=== PATIENT | male | born 1945 | race Caucasian/White ===

== ENCOUNTER → 2017-10-10 09:53 | Outpatient (CLI) | payer OTHER, SELFPAY ==
--- NOTE | 2017-10-10 | DI.CT.S_ITS ---
PROCEDURE: CT ANGIO ABDOMEN PELVIS INDICATIONS: STRICTURE OF ARTERY TECHNIQUE: After the administration of intravenous contrast, 2.5 mm thick sections acquired from the diaphragm to the symphysis. 10 mm maximum-intensity projection (MIP) reformats were then acquired. For radiation dose reduction, the following was used: automated exposure control. COMPARISON: [facility], CT, PE STUDY (CTA CHEST), 01/10/2016, 13:27. Outside Facility, , US LOWER EXTREMITY VASCULAR BILATERAL, 09/25/2017, 11:55. [facility], US, RENAL OR RETROPERITONEAL LIMIT, 09/28/2015, 9:06. FINDINGS: Image quality: Excellent. Aorta: The aorta is patent. Moderate areas of atherosclerotic wall calcification and mural thrombus are identified. Mesenteric arteries: Celiac trunk, superior and inferior mesenteric arteries appear patent. However, there is significant calcification of the proximal aspect of the superior mesenteric artery with short segment high grade stenosis of approximately 70%. Right pelvic arteries: There are significant wall calcifications throughout the course of the common, internal and external iliac arteries as well as the visualized common and superficial femoral arteries. There is focal area of stenosis approximately 50-60% within the right common iliac artery. There is focal area of stenosis approximately 50% on the left. Left pelvic arteries: There are significant wall calcifications throughout the course of the common, internal and external iliac arteries as well as the visualized common and superficial femoral arteries. There is focal area of stenosis approximately 50% within the left common iliac artery. Extravascular soft tissues: Linear opacities present within the lingula, unchanged. Heart size is normal. Liver is normal in size and enhancement. The pneumobilia is present. Gallbladder is unremarkable. Biliary system is non dilated. Pancreas enhances normally. Spleen is normal in size and enhancement. There is nodularity of the left adrenal gland. Kidneys are normal in size and enhancement, without hydronephrosis. Lobulated left renal cyst is noted, measuring 45 mm. Similar, punctate focus is present in the right kidney, too small to characterize. Non opacified bowel loops are normal in wall thickness and caliber. No free fluid or air. No retroperitoneal or mesenteric adenopathy. Subcentimeter periaortic and aortocaval lymph nodes are noted. No ventral hernias. No suspicious bony lesions. No vertebral body compression fractures. IMPRESSION: 1. Lingular scarring, unchanged. 2. Short segment area of prominent calcification and approximate 70% stenosis, within the proximal superior mesenteric artery. 3. Moderate atherosclerotic wall calcifications and mural thrombus throughout the abdominal aorta. 4. Significant calcifications within the visualized pelvic vasculature. There is approximate 50% stenosis within the left common iliac artery, 50-60% noted on the right. 5. Pneumobilia predominantly within the left hepatic lobe. Dictated by: Eulalia Alcantar M.D. on 10/10/2017 at 15:43 Approved by: Eulalia Alcantar M.D. on 10/10/2017 at 16:05
== END ==
PROVIDERS: Family Provider Nurse Practitioner Adult Health; PCP Family Medicine; Visit Provider Nurse Practitioner Adult Health
DX: I77.1 Stricture of artery (principal); I74.09 Other arterial embolism and thrombosis of abdominal aorta; I70.8 Atherosclerosis of other arteries
CPT/HCPCS: 74174; Q9967

== ENCOUNTER → 2017-10-20 17:05 | Outpatient (CLI) | payer OTHER, SELFPAY ==
[2017-10-20 17:59] LABS: Add Manual Diff / Slide Review NO; Eosinophils Percent Auto 4.2 % (2-4); Hematocrit 28.3 % (41-53); Hemoglobin 9.3 g/dL (13.5-17.5); Lymphocytes Percent Auto 21.9 % (25-40); Mean Corpuscular HGB Conc 32.8 % (30-36); Mean Corpuscular Hemoglobin 26.9 PG (26-34); Mean Corpuscular Volume 81.9 fL (80-100); Monocytes Percent Auto 8.3 % (3-14); Neutrophils Absolute Auto 7500 /uL (3000-5900); Neutrophils Percent Auto 64.6 % (50-75); Platelet Count 392 X10^3/uL (150-400); Red Blood Cell Count 3.45 X10^6/uL (4.5-5.9); Red Cell Distribution Width 23.3 % (11.6-14.8); White Blood Cell Count 11.6 X10^3/uL (4.5-11.0)
[2017-10-20 19:12] LABS: Anisocytosis 3+; Hypochromasia 1+; Microcytosis 1+; Schistocytes 1+
== END ==
PROVIDERS: Family Provider Nurse Practitioner Adult Health; PCP Family Medicine; Visit Provider Family Medicine
DX: D64.9 Anemia, unspecified (principal)
CPT/HCPCS: 36415; 85025

== ENCOUNTER → 2017-12-04 08:41 | Outpatient (CLI) | payer OTHER, SELFPAY ==
--- NOTE | 2017-12-04 | DI.US.S_ITS ---
PROCEDURE: US CAROTID DOPPLER BI INDICATIONS: CHRONIC DIZZINESS TECHNIQUE: Color and pulse Doppler interrogation was performed of both carotid systems, with image documentation and velocity measurements. COMPARISON: [facility], , RENAL OR RETROPERITONEAL LIMIT, 09/28/2015, 9:06. FINDINGS: Stenosis calculations are based on SRU (Society of Radi[employer] in Ultrasound) criteria. Right side: Brachial blood pressure: 155/56 mm Hg. Common carotid artery peak systolic velocity: 103 cm/sec. Internal carotid artery peak systolic velocity: 174 cm/sec. Internal carotid artery end diastolic velocity: 33 cm/sec. External carotid artery peak systolic velocity: 66 cm/sec. ICA/CCA peak systolic ratio: 1.7. Yarbrough scale imaging description: Moderate partially calcified atheromatous plaque Percent internal carotid artery stenosis: 50-69%. Vertebral artery: Flow direction is antegrade. Left side: Brachial blood pressure: 143/59 mm Hg. Common carotid artery peak systolic velocity: 142 cm/sec. Internal carotid artery peak systolic velocity: 122 cm/sec. Internal carotid artery end diastolic velocity: 17 cm/sec. External carotid artery peak systolic velocity: 111 cm/sec. ICA/CCA peak systolic ratio: 0.9. Yarbrough scale imaging description: Moderate partially calcified atheromatous plaque Percent internal carotid artery stenosis: Less than 50%. Vertebral artery: Flow direction is antegrade. IMPRESSION: 1. There is 50-69% stenosis of the right internal carotid artery. Consider confirmation a neck CTA or MRA if intervention would be pursued in the setting of a severe stenosis. 2. There is less than 50% stenosis in the left internal carotid artery. 3. Vertebral arteries are patent with antegrade flow. Dictated by: Patricio Francois M.D. on 12/04/2017 at 9:38 Approved by: Patricio Francois M.D. on 12/04/2017 at 9:40
== END ==
PROVIDERS: PCP Family Medicine; Visit Provider Nurse Practitioner Adult Health
DX: I65.23 Occlusion and stenosis of bilateral carotid arteries (principal); R42 Dizziness and giddiness
CPT/HCPCS: 93880

== ENCOUNTER 2018-02-05 19:23 | Observation (INO) | payer OTHER, SELFPAY ==
[2018-02-05 19:28] VITALS: BP 112/60; PULSE 61; RESP 15; TEMP 36.2; O2SAT 98; BMI 25.0
--- NOTE | 2018-02-05 19:36 | ED_ITS ---
HPI - Recheck/Abnormal Lab/Rx <ESTHELA Gutierrez - Last Filed: 02/05/18 22:14> General Chief Complaint: Recheck/Abnormal Lab/Rx Stated Complaint: Very tired, lethargic, low blood count, off WBC Time Seen by Provider: 02/05/18 19:34 Source: patient Mode of arrival: ambulatory Limitations: no limitations History of Present Illness HPI narrative: 72-year-old male with history of anemia and is an everyday smoker brought in by signs due to abnormal lab readings. He had labs drawn earlier this week and [facility] in [facility]. He reports that he has had weakness and increased tiredness over the past few months. He has been seen for this in the past and he has had some intervention such as a colonoscopy and possible endoscopy to check for signs of GI bleeds patient reports that these have been inconclusive. He denies having any henry blood. He denies having any dark tarry stools for the past month. He does report having some shortness of breath with ambulation. He denies any chest pain. No fevers or chills. Related Data Home Medications Medication Instructions Recorded Confirmed albuterol sulfate [Ventolin HFA] 2 puff INH Q4HP PRN #0 07/04/17 02/05/18 amlodipine 10 mg PO QDAY #0 07/04/17 02/05/18 atorvastatin [Lipitor] 40 mg PO HS #0 07/04/17 02/05/18 budesonide-formoterol [Symbicort] 2 puff INH BID #0 07/04/17 02/05/18 duloxetine 20 mg PO HS #0 07/04/17 02/05/18 insulin glargine [Lantus U-100 40 unit SQ HS #0 07/04/17 02/05/18 Insulin] lisinopril 40 mg PO QDAY #0 07/04/17 02/05/18 metformin 1,000 mg PO BIDCC #0 07/04/17 02/05/18 pregabalin [Lyrica] 75 mg PO BID #0 07/04/17 02/05/18 propranolol 10 mg PO TIDP PRN #0 07/04/17 02/05/18 tiotropium bromide [Spiriva with 1 puff INH QDAY #0 07/04/17 02/05/18 HandiHaler] aspirin 81 mg PO DAILY 02/05/18 02/05/18 clopidogrel 75 mg PO DAILY 02/05/18 02/05/18 glimepiride 4 mg PO BID 02/05/18 02/05/18 hydrochlorothiazide 32.5 mg PO DAILY 02/05/18 02/05/18 metoprolol succinate 50 mg PO DAILY 02/05/18 02/05/18 mv,Ca,zmx-tnhy-AB-lycopene 1 tab PO DAILY 02/05/18 02/05/18 [Centrum Men] omeprazole 20 mg PO DAILY 02/05/18 02/05/18 Allergies Allergy/AdvReac Type Severity Reaction Status Date / Time itraconazole [From SPORANOX] Allergy Intermediate HIVES Verified 02/05/18 19:28 griseofulvin [GRISEOFULVIN] Allergy Unknown Verified 02/05/18 19:28 Review of Systems <ESTHELA Gutierrez - Last Filed: 02/05/18 22:14> Constitutional Denies chills, Reports fatigue, Denies fever(s), Denies lethargy and Denies weakness Eyes Denies change in vision, Denies eye discharge, Denies irritation and Denies loss of vision ENT Ears, Nose, Mouth, and Throat: Denies change in voice, Denies neck pain, Denies sore throat and Denies throat swelling Cardiovascular Denies chest pain, Denies irregular heart rhythm, Denies lightheadedness, Denies palpitations, Reports dyspnea on exertion and Denies orthopnea Respiratory Reports dyspnea on exertion and Denies wheezing Genitourinary Denies hematuria, Denies flank pain, Denies urinary incontinence and Denies urinary urgency Musculoskeletal Denies neck pain Integumentary/Breasts Denies pruritus, Denies erythema, Denies rash and Denies wounds Neurologic Denies confusion, Denies loss of vision and Denies weakness Psychiatric Denies anxiety, Denies confusion, Denies depression, Denies homicidal ideation and Denies suicidal ideation Endocrine Reports fatigue and Denies palpitations Allergic/Immunologic Denies urticaria, Denies throat swelling and Denies wheezing Exam <ESTHELA Gutierrez - Last Filed: 02/05/18 22:14> Initial Vital Signs Initial Vital Signs: Vital Signs Temperature 97.2 F L 02/05/18 19:28 Pulse Rate 61 02/05/18 19:28 Respiratory Rate 15 02/05/18 19:28 Blood Pressure 112/60 02/05/18 19:28 Pulse Oximetry 98 02/05/18 19:28 Const General: cooperative and well developed Nutritional Appearance: well nourished Orientation: alert, awake, oriented x3 and not confused [facility] Mouth: oral mucosae normal and moist mucous membranes Eyes Eyelids: eyelids normal Conjunctivae: conjunctivae normal Sclera: sclerae normal Pupils: PERRL EOM: EOM intact bilaterally Resp Effort & Inspection: normal respiratory effort, able to speak in complete sentences, no respiratory distress and no use of accessory muscles Auscultation: clear to auscultation bilaterally, no rales, no rhonchi and no wheezes Cardio Rate: regular rate Rhythm: regular rhythm Heart Sounds: no click, no gallops, no murmurs and no rubs Pulses: normal peripheral pulses GI Inspection: non-distended Palpation: soft, no hepatosplenomegaly, No guarding, No pulsatile mass and No tender Auscultation: normal bowel sounds Neuro General: alert, oriented x3, gait normal and no focal motor deficits Speech: speech normal <Joyce Borden DO - Last Filed: 02/06/18 04:02> Initial Vital Signs Initial Vital Signs: Vital Signs Temperature 97.2 F L 02/05/18 19:28 Pulse Rate 61 02/05/18 19:28 Respiratory Rate 15 02/05/18 19:28 Blood Pressure 112/60 02/05/18 19:28 Pulse Oximetry 98 02/05/18 19:28 Course <ESTHELA Gutierrez - Last Filed: 02/05/18 22:14> Orders Ordered: ED Orders 02/05/18 19:48 Complete Blood Count AUTO DIFF Stat Comprehensive Metabolic Panel Stat Iron Profile (w/ % Saturation) Stat Packed Cells Stat Prothrombin Time INR Stat Troponin & CK Cardiac Panel Stat Type and Screen Stat 02/05/18 20:00 XR chest 1V Stat EKG-12 Lead Stat 02/05/18 21:40 B Type Natriuretic Peptide Stat 02/05/18 22:08 Consult to Physician Routine 02/05/18 22:16 Consult to Pastoral Services Routine 02/05/18 22:20 MRSA PCR Urgent 02/06/18 06:00 Complete Blood Count AUTO DIFF Stat Acetaminophen (Tylenol) 650 mg PO Q6HR PRN PRN Reason: As Needed for Fever/Mild Pain Last Admin: 02/06/18 00:59 Dose: 650 mg Ondansetron HCl (Zofran) 4 mg IV Q4HR PRN PRN Reason: Nausea And Vomiting Discontinued Medications Gabapentin (Neurontin) 600 mg PO NOW ONE Stop: 02/06/18 02:13 Last Admin: 02/06/18 02:15 Dose: 600 mg Sodium Chloride (Normal Saline 0.9%) 1,000 mls @ 150 mls/hr IV CONT SHIRAZ Last Infusion: 02/05/18 22:16 Dose: 0 mls/hr Admin: 02/05/18 20:23 Dose: 150 mls/hr Vital Signs - 8 hr 02/05/18 22:18 02/05/18 22:24 02/05/18 22:59 Temperature 97.2 F L 98.0 F 97.4 F L Pulse Rate 61 71 Respiratory Rate 15 20 20 Blood Pressure 112/60 152/51 H 170/57 H Pulse Oximetry 98 91 02/05/18 23:35 02/06/18 00:11 02/06/18 01:50 Temperature 98 F 98.3 F Pulse Rate 76 74 Respiratory Rate 20 18 Blood Pressure 157/56 H 152/62 H Pulse Oximetry 88 L 93 93 02/06/18 01:56 02/06/18 01:58 02/06/18 02:05 Temperature 98.3 F 98.3 F 98.1 F Pulse Rate 74 74 68 Respiratory Rate 18 18 18 Blood Pressure 152/62 H 152/62 H 136/54 L Pulse Oximetry <Joyce Borden, - Last Filed: 02/06/18 04:02> Orders Ordered: ED Orders 02/05/18 19:48 Complete Blood Count AUTO DIFF Stat Comprehensive Metabolic Panel Stat Iron Profile (w/ % Saturation) Stat Packed Cells Stat Prothrombin Time INR Stat Troponin & CK Cardiac Panel Stat Type and Screen Stat 02/05/18 20:00 XR chest 1V Stat EKG-12 Lead Stat 02/05/18 21:40 B Type Natriuretic Peptide Stat 02/05/18 22:08 Consult to Physician Routine 02/05/18 22:16 Consult to Pastoral Services Routine 02/05/18 22:20 MRSA PCR Urgent 02/06/18 06:00 Complete Blood Count AUTO DIFF Stat Acetaminophen (Tylenol) 650 mg PO Q6HR PRN PRN Reason: As Needed for Fever/Mild Pain Last Admin: 02/06/18 00:59 Dose: 650 mg Ondansetron HCl (Zofran) 4 mg IV Q4HR PRN PRN Reason: Nausea And Vomiting Discontinued Medications Gabapentin (Neurontin) 600 mg PO NOW ONE Stop: 02/06/18 02:13 Last Admin: 02/06/18 02:15 Dose: 600 mg Sodium Chloride (Normal Saline 0.9%) 1,000 mls @ 150 mls/hr IV CONT SHIRAZ Last Infusion: 02/05/18 22:16 Dose: 0 mls/hr Admin: 02/05/18 20:23 Dose: 150 mls/hr Vital Signs - 8 hr 02/05/18 22:18 02/05/18 22:24 02/05/18 22:59 Temperature 97.2 F L 98.0 F 97.4 F L Pulse Rate 61 71 Respiratory Rate 15 20 20 Blood Pressure 112/60 152/51 H 170/57 H Pulse Oximetry 98 91 02/05/18 23:35 02/06/18 00:11 02/06/18 01:50 Temperature 98 F 98.3 F Pulse Rate 76 74 Respiratory Rate 20 18 Blood Pressure 157/56 H 152/62 H Pulse Oximetry 88 L 93 93 02/06/18 01:56 02/06/18 01:58 02/06/18 02:05 Temperature 98.3 F 98.3 F 98.1 F Pulse Rate 74 74 68 Respiratory Rate 18 18 18 Blood Pressure 152/62 H 152/62 H 136/54 L Pulse Oximetry MDM - Recheck/Abnormal Lab/Rx <ESTHELA Gutierrez - Last Filed: 02/05/18 22:14> Lab Data Result diagrams: 02/05/18 19:48 02/05/18 19:48 Lab Results 02/05/18 02/05/18 02/05/18 Range/Units 19:48 19:48 19:48 WBC 7.6 (4.5-11.0) X10^3/uL RBC 3.51 L (4.5-5.9) X10^6/uL Hgb 7.3 L (13.5-17.5) g/dL Hct 23.7 L (41-53) % MCV 67.7 L (80-100) fL MCH 20.8 L (26-34) PG MCHC 30.8 (30-36) % RDW 19.2 H (11.6-14.8) % Plt Count 397 (150-400) X10^3/uL Neut % (Auto) 60.9 (50-75) % Lymph % (Auto) 22.1 L (25-40) % Barrow % (Auto) 8.9 (3-14) % Eos % (Auto) 6.8 H (2-4) % Baso % (Auto) 1.3 (0-2) % Neut # (Auto) 4600 (3323-8670) /uL RBC Morphology See below Polychromasia 1+ H Hypochromasia 2+ H Microcytosis 2+ H PT 12.5 (10.1-12.7) SECONDS INR 1.2 (0.9-1.3) Sodium 138 (137-145) mmol/L Potassium 3.9 (3.4-5.1) mmol/L Chloride 101 (98-107) mmol/L Carbon Dioxide 26 (22-32) mmol/L BUN 13 (9-20) mg/dL Creatinine 0.80 (0.66-1.25) mg/dL Estimated GFR > 60.0 (>60) mL/min BUN/Creatinine Ratio 16.3 (6-22) Glucose 52 L (80-110) mg/dL Calcium 8.8 (8.4-10.2) mg/dL Iron (49-181) ug/dL TIBC (261-462) ug/dL % Saturation (20-50) % Transferrin (206-381) mg/dL Total Bilirubin 0.4 (0.2-1.3) mg/dL AST 46 (17-59) IU/L ALT 19 L (21-72) IU/L Alkaline Phosphatase 103 (38-126) U/L Total Creatine Kinase 51 L (55-170) U/L CK-MB (CK-2) TNP CK-MB (CK-2) Rel Index TNP Troponin I < 0.012 (0.01-0.034) ng/mL B-Natriuretic Peptide (<100) Total Protein 6.4 (6.3-8.2) g/dL Albumin 3.6 (3.5-5.0) g/dL Globulin 2.8 (1.7-4.1) g/dL Albumin/Globulin Ratio 1.3 (1.0-2.8) Nasal Screen MRSA (PCR) (Negative) Blood Type Antibody Screen Crossmatch 02/05/18 02/05/18 02/05/18 Range/Units 19:48 19:48 21:40 WBC (4.5-11.0) X10^3/uL RBC (4.5-5.9) X10^6/uL Hgb (13.5-17.5) g/dL Hct (41-53) % MCV (80-100) fL MCH (26-34) PG MCHC (30-36) % RDW (11.6-14.8) % Plt Count (150-400) X10^3/uL Neut % (Auto) (50-75) % Lymph % (Auto) (25-40) % Barrow % (Auto) (3-14) % Eos % (Auto) (2-4) % Baso % (Auto) (0-2) % Neut # (Auto) (9970-0458) /uL RBC Morphology Polychromasia Hypochromasia Microcytosis PT (10.1-12.7) SECONDS INR (0.9-1.3) Sodium (137-145) mmol/L Potassium (3.4-5.1) mmol/L Chloride (98-107) mmol/L Carbon Dioxide (22-32) mmol/L BUN (9-20) mg/dL Creatinine (0.66-1.25) mg/dL Estimated GFR (>60) mL/min BUN/Creatinine Ratio (6-22) Glucose (80-110) mg/dL Calcium (8.4-10.2) mg/dL Iron 15 L (49-181) ug/dL TIBC 383 (261-462) ug/dL % Saturation 4 L (20-50) % Transferrin 370 (206-381) mg/dL Total Bilirubin (0.2-1.3) mg/dL AST (17-59) IU/L ALT (21-72) IU/L Alkaline Phosphatase (38-126) U/L Total Creatine Kinase (55-170) U/L CK-MB (CK-2) CK-MB (CK-2) Rel Index Troponin I (0.01-0.034) ng/mL B-Natriuretic Peptide 254.0 H (<100) Total Protein (6.3-8.2) g/dL Albumin (3.5-5.0) g/dL Globulin (1.7-4.1) g/dL Albumin/Globulin Ratio (1.0-2.8) Nasal Screen MRSA (PCR) (Negative) Blood Type A Positive Antibody Screen Negative Crossmatch See Detail 02/05/18 Range/Units 22:20 WBC (4.5-11.0) X10^3/uL RBC (4.5-5.9) X10^6/uL Hgb (13.5-17.5) g/dL Hct (41-53) % MCV (80-100) fL MCH (26-34) PG MCHC (30-36) % RDW (11.6-14.8) % Plt Count (150-400) X10^3/uL Neut % (Auto) (50-75) % Lymph % (Auto) (25-40) % Barrow % (Auto) (3-14) % Eos % (Auto) (2-4) % Baso % (Auto) (0-2) % Neut # (Auto) (9181-5500) /uL RBC Morphology Polychromasia Hypochromasia Microcytosis PT (10.1-12.7) SECONDS INR (0.9-1.3) Sodium (137-145) mmol/L Potassium (3.4-5.1) mmol/L Chloride (98-107) mmol/L Carbon Dioxide (22-32) mmol/L BUN (9-20) mg/dL Creatinine (0.66-1.25) mg/dL Estimated GFR (>60) mL/min BUN/Creatinine Ratio (6-22) Glucose (80-110) mg/dL Calcium (8.4-10.2) mg/dL Iron (49-181) ug/dL TIBC (261-462) ug/dL % Saturation (20-50) % Transferrin (206-381) mg/dL Total Bilirubin (0.2-1.3) mg/dL AST (17-59) IU/L ALT (21-72) IU/L Alkaline Phosphatase (38-126) U/L Total Creatine Kinase (55-170) U/L CK-MB (CK-2) CK-MB (CK-2) Rel Index Troponin I (0.01-0.034) ng/mL B-Natriuretic Peptide (<100) Total Protein (6.3-8.2) g/dL Albumin (3.5-5.0) g/dL Globulin (1.7-4.1) g/dL Albumin/Globulin Ratio (1.0-2.8) Nasal Screen MRSA (PCR) Negative for mrsa (Negative) Blood Type Antibody Screen Crossmatch Point of Care Testing Glucose POC 172 Imaging Data Chest x-ray: Radiologist's impression: XRay Report Signed Patient: Mauro Espino MMR#: [id number] : 4Acct:[id number] Age/Sex: 72 / MDate of Service: 02/05/18 Loc: ED Accession Number: [id number] Procedure: XR chest 1V Ordering Provider: Gian Salguero PROCEDURE: XR CHEST 1V INDICATIONS: feeling tired and weakness TECHNIQUE: One view of the chest was acquired. COMPARISON: [facility], , CHEST 1 VIEW, 08/01/2017, 19:57. FINDINGS: Surgical changes and devices: None. Lungs and pleura: Increased pulmonary vascularity is present. Coarsened bibasilar and retrocardiac opacities are present. Mediastinum: Mediastinal contours appear normal. Heart size is normal. Bones and chest wall: No suspicious bony lesions. Overlying soft tissues appear unremarkable. IMPRESSION: Increased vascularity suggestive of edema. Coarsened bibasilar and retrocardiac opacities are present. This could represent edema or developing airspace disease such as pneumonia. Dictated by: Eulalia Alcantar M.D. on 02/05/2018 at 21:02 Approved by: Eulalia Alcantar M.D. on 02/05/2018 at 21:02 ECG Data Interpretation: EKG shows sinus bradycardia with no ST elevation or depression. No ectopy. Ventricular rate of 56. Pr interval of 163. QRS duration of 121. QT of 441 MDM Narrative Medical decision making narrative: H&H results as 7 and 23. type and cross was obtained and 2 units of packed red blood cells were ordered for transfusion. EKG shows sinus rhythm with no ST elevation or depression. No ectopy. Chest x-ray shows findings suggestive of a possible edema. A BNP was ordered. Unknown etiology of his anemia. Iron studies were obtained and do show signs of iron deficiency anemia. Discussed case with Dr. toney the hospitalist patient is admitted to observation for transfusions and for further evaluation. CBC to be re- checked in the morning. patient to follow up with primary care provider for further evaluation and treatment <Joyce Borden, DO - Last Filed: 02/06/18 04:02> Lab Data Attestation: I reviewed the patient's lab results. Lab Results 02/05/18 02/05/18 02/05/18 Range/Units 19:48 19:48 19:48 WBC 7.6 (4.5-11.0) X10^3/uL RBC 3.51 L (4.5-5.9) X10^6/uL Hgb 7.3 L (13.5-17.5) g/dL Hct 23.7 L (41-53) % MCV 67.7 L (80-100) fL MCH 20.8 L (26-34) PG MCHC 30.8 (30-36) % RDW 19.2 H (11.6-14.8) % Plt Count 397 (150-400) X10^3/uL Neut % (Auto) 60.9 (50-75) % Lymph % (Auto) 22.1 L (25-40) % Barrow % (Auto) 8.9 (3-14) % Eos % (Auto) 6.8 H (2-4) % Baso % (Auto) 1.3 (0-2) % Neut # (Auto) 4600 (3256-5833) /uL RBC Morphology See below Polychromasia 1+ H Hypochromasia 2+ H Microcytosis 2+ H PT 12.5 (10.1-12.7) SECONDS INR 1.2 (0.9-1.3) Sodium 138 (137-145) mmol/L Potassium 3.9 (3.4-5.1) mmol/L Chloride 101 (98-107) mmol/L Carbon Dioxide 26 (22-32) mmol/L BUN 13 (9-20) mg/dL Creatinine 0.80 (0.66-1.25) mg/dL Estimated GFR > 60.0 (>60) mL/min BUN/Creatinine Ratio 16.3 (6-22) Glucose 52 L (80-110) mg/dL Calcium 8.8 (8.4-10.2) mg/dL Iron (49-181) ug/dL TIBC (261-462) ug/dL % Saturation (20-50) % Transferrin (206-381) mg/dL Total Bilirubin 0.4 (0.2-1.3) mg/dL AST 46 (17-59) IU/L ALT 19 L (21-72) IU/L Alkaline Phosphatase 103 (38-126) U/L Total Creatine Kinase 51 L (55-170) U/L CK-MB (CK-2) TNP CK-MB (CK-2) Rel Index TNP Troponin I < 0.012 (0.01-0.034) ng/mL B-Natriuretic Peptide (<100) Total Protein 6.4 (6.3-8.2) g/dL Albumin 3.6 (3.5-5.0) g/dL Globulin 2.8 (1.7-4.1) g/dL Albumin/Globulin Ratio 1.3 (1.0-2.8) Nasal Screen MRSA (PCR) (Negative) Blood Type Antibody Screen Crossmatch 02/05/18 02/05/18 02/05/18 Range/Units 19:48 19:48 21:40 WBC (4.5-11.0) X10^3/uL RBC (4.5-5.9) X10^6/uL Hgb (13.5-17.5) g/dL Hct (41-53) % MCV (80-100) fL MCH (26-34) PG MCHC (30-36) % RDW (11.6-14.8) % Plt Count (150-400) X10^3/uL Neut % (Auto) (50-75) % Lymph % (Auto) (25-40) % Barrow % (Auto) (3-14) % Eos % (Auto) (2-4) % Baso % (Auto) (0-2) % Neut # (Auto) (9395-3845) /uL RBC Morphology Polychromasia Hypochromasia Microcytosis PT (10.1-12.7) SECONDS INR (0.9-1.3) Sodium (137-145) mmol/L Potassium (3.4-5.1) mmol/L Chloride (98-107) mmol/L Carbon Dioxide (22-32) mmol/L BUN (9-20) mg/dL Creatinine (0.66-1.25) mg/dL Estimated GFR (>60) mL/min BUN/Creatinine Ratio (6-22) Glucose (80-110) mg/dL Calcium (8.4-10.2) mg/dL Iron 15 L (49-181) ug/dL TIBC 383 (261-462) ug/dL % Saturation 4 L (20-50) % Transferrin 370 (206-381) mg/dL Total Bilirubin (0.2-1.3) mg/dL AST (17-59) IU/L ALT (21-72) IU/L Alkaline Phosphatase (38-126) U/L Total Creatine Kinase (55-170) U/L CK-MB (CK-2) CK-MB (CK-2) Rel Index Troponin I (0.01-0.034) ng/mL B-Natriuretic Peptide 254.0 H (<100) Total Protein (6.3-8.2) g/dL Albumin (3.5-5.0) g/dL Globulin (1.7-4.1) g/dL Albumin/Globulin Ratio (1.0-2.8) Nasal Screen MRSA (PCR) (Negative) Blood Type A Positive Antibody Screen Negative Crossmatch See Detail 02/05/18 Range/Units 22:20 WBC (4.5-11.0) X10^3/uL RBC (4.5-5.9) X10^6/uL Hgb (13.5-17.5) g/dL Hct (41-53) % MCV (80-100) fL MCH (26-34) PG MCHC (30-36) % RDW (11.6-14.8) % Plt Count (150-400) X10^3/uL Neut % (Auto) (50-75) % Lymph % (Auto) (25-40) % Barrow % (Auto) (3-14) % Eos % (Auto) (2-4) % Baso % (Auto) (0-2) % Neut # (Auto) (7937-4166) /uL RBC Morphology Polychromasia Hypochromasia Microcytosis PT (10.1-12.7) SECONDS INR (0.9-1.3) Sodium (137-145) mmol/L Potassium (3.4-5.1) mmol/L Chloride (98-107) mmol/L Carbon Dioxide (22-32) mmol/L BUN (9-20) mg/dL Creatinine (0.66-1.25) mg/dL Estimated GFR (>60) mL/min BUN/Creatinine Ratio (6-22) Glucose (80-110) mg/dL Calcium (8.4-10.2) mg/dL Iron (49-181) ug/dL TIBC (261-462) ug/dL % Saturation (20-50) % Transferrin (206-381) mg/dL Total Bilirubin (0.2-1.3) mg/dL AST (17-59) IU/L ALT (21-72) IU/L Alkaline Phosphatase (38-126) U/L Total Creatine Kinase (55-170) U/L CK-MB (CK-2) CK-MB (CK-2) Rel Index Troponin I (0.01-0.034) ng/mL B-Natriuretic Peptide (<100) Total Protein (6.3-8.2) g/dL Albumin (3.5-5.0) g/dL Globulin (1.7-4.1) g/dL Albumin/Globulin Ratio (1.0-2.8) Nasal Screen MRSA (PCR) Negative for mrsa (Negative) Blood Type Antibody Screen Crossmatch Point of Care Testing Glucose POC 172 ECG Data Attestation: I personally reviewed and interpreted this ECG as follows: Prior ECG tracings: available for review Interpretation: Sinus rhythm rate [address] changes here interval 163 no ischemic changes noted Discharge Plan Departure Patient Disposition: Admitted As Inpatient Clinical Impression: Anemia Discharge Date/Time: 02/05/18 22:22 Interventions: ED Discharge Assessment Last Done: 02/05/18 22:19 Admit Date/Time: 02/05/18 21:51 Admit Provider: Geo Yeager <Joyce Borden DO - Last Filed: 02/06/18 04:02> Cosign ED Attending Sandraature Attestation: I was immediately available in the department for consultation. Documentation has been reviewed. I agree with assessment and plan.
--- NOTE | 2018-02-05 20:00 | DI.RAD.S_ITS ---
PROCEDURE: XR CHEST 1V INDICATIONS: feeling tired and weakness TECHNIQUE: One view of the chest was acquired. COMPARISON: [facility], , CHEST 1 VIEW, 08/01/2017, 19:57. FINDINGS: Surgical changes and devices: None. Lungs and pleura: Increased pulmonary vascularity is present. Coarsened bibasilar and retrocardiac opacities are present. Mediastinum: Mediastinal contours appear normal. Heart size is normal. Bones and chest wall: No suspicious bony lesions. Overlying soft tissues appear unremarkable. IMPRESSION: Increased vascularity suggestive of edema. Coarsened bibasilar and retrocardiac opacities are present. This could represent edema or developing airspace disease such as pneumonia. Dictated by: Eulalia Alcantar M.D. on 02/05/2018 at 21:02 Approved by: Eulalia Alcantar M.D. on 02/05/2018 at 21:02
[2018-02-05 20:10] LABS: INR 1.2 (0.9-1.3); Prothrombin Time 12.5 SECONDS (10.1-12.7)
[2018-02-05 20:11] LABS: Add Manual Diff / Slide Review NO; Basophils Percent Auto 1.3 % (0-2); Eosinophils Percent Auto 6.8 % (2-4); Hematocrit 23.7 % (41-53); Hemoglobin 7.3 g/dL (13.5-17.5); Lymphocytes Percent Auto 22.1 % (25-40); Mean Corpuscular HGB Conc 30.8 % (30-36); Mean Corpuscular Hemoglobin 20.8 PG (26-34); Mean Corpuscular Volume 67.7 fL (80-100); Monocytes Percent Auto 8.9 % (3-14); Neutrophils Absolute Auto 4600 /uL (3000-5900); Neutrophils Percent Auto 60.9 % (50-75); Platelet Count 397 X10^3/uL (150-400); Red Blood Cell Count 3.51 X10^6/uL (4.5-5.9); Red Cell Distribution Width 19.2 % (11.6-14.8); White Blood Cell Count 7.6 X10^3/uL (4.5-11.0)
[2018-02-05 20:15] LABS: Alanine Aminotransferase 19 IU/L (21-72); Albumin 3.6 g/dL (3.5-5.0); Albumin Globulin Ratio 1.3 (1.0-2.8); Alkaline Phosphatase 103 U/L (38-126); Aspartate Aminotransferase 46 IU/L (17-59); BUN Creatinine Ratio 16.3 (6-22); Bilirubin Total 0.4 mg/dL (0.2-1.3); Blood Urea Nitrogen 13 mg/dL (9-20); Calcium 8.8 mg/dL (8.4-10.2); Carbon Dioxide 26 mmol/L (22-32); Chloride 101 mmol/L (98-107); Creatine Kinase 51 U/L (55-170); Estimated Glomerular Filt Rate > 60.0 mL/min (>60); Globulin 2.8 g/dL (1.7-4.1); Glucose 52 mg/dL (80-110); HEMOLYSIS < 15 (0-50); Potassium 3.9 mmol/L (3.4-5.1); Sodium 138 mmol/L (137-145); Total Protein 6.4 g/dL (6.3-8.2)
[2018-02-05] MEDS: SODIUM CHLORIDE 0.9% 1,000 ML 150 ML IV (20:23)
[2018-02-05 20:29] LABS: Troponin I < 0.012 ng/mL (0.01-0.034)
[2018-02-05 20:31] LABS: Hypochromasia 2+; Microcytosis 2+; Polychromasia 1+
[2018-02-05 20:38] LABS: HEMOLYSIS < 15 (0-50); Iron 15 ug/dL (49-181)
[2018-02-05 20:48] LABS: Percent Iron Saturation 4 % (20-50); Total Iron Binding Capacity 383 ug/dL (261-462); Transferrin 370 mg/dL (206-381)
[2018-02-05 22:08] VITALS: BMI 25.0
[2018-02-05 22:18] VITALS: BP 112/60; PULSE 61; RESP 15; TEMP 36.2; O2SAT 98; BMI 25.0
[2018-02-05 22:24] VITALS: BP 152/51; RESP 20; TEMP 36.7; O2SAT 91
[2018-02-05 22:59] VITALS: BP 170/57; PULSE 71; RESP 20; TEMP 36.3
[2018-02-05 23:35] VITALS: BP 157/56; PULSE 76; RESP 20; TEMP 36.6; O2SAT 88
[2018-02-06] VITALS (8 sets, daily range): BP systolic 136–160; BP diastolic 54–85; PULSE 65–74; RESP 18–20; TEMP 36.6–36.8; O2SAT 89–95
[2018-02-06] MEDS: ACETAMINOPHEN 325 MG TABLET 650 MG PO (00:59)
[2018-02-06] MEDS: GABAPENTIN 600 MG TABLET PO (02:15)
[2018-02-06 07:16] LABS: Add Manual Diff / Slide Review NO; Basophils Percent Auto 1.1 % (0-2); Eosinophils Percent Auto 6.3 % (2-4); Hematocrit 28.9 % (41-53); Hemoglobin 9.6 g/dL (13.5-17.5); Lymphocytes Percent Auto 24.8 % (25-40); Mean Corpuscular Hemoglobin 23.1 PG (26-34); Mean Corpuscular Volume 69.9 fL (80-100); Neutrophils Absolute Auto 4700 /uL (3000-5900); Neutrophils Percent Auto 60.8 % (50-75); Platelet Count 301 X10^3/uL (150-400); Red Blood Cell Count 4.14 X10^6/uL (4.5-5.9); Red Cell Distribution Width 21.3 % (11.6-14.8); White Blood Cell Count 7.8 X10^3/uL (4.5-11.0)
--- NOTE | 2018-02-06 09:41 | PM.HP.1 ---
History of Present Illness Date Patient Seen: 02/06/18 Time Patient Seen: 09:41 Chief complaint: Very tired, lethargic, low blood count, off WBC Narrative: 72-year-old male who is followed primarily by the [facility] presented to the emergency department after he had been called at home by the [facility] telling him that his labs were abnormal that his hematocrit was very low and he needed a transfusion. He has been followed at the [facility] for this chronic anemia. Patient denies any recent blood loss he has denied any blood in the stool or any black stool denies any vomiting of blood. He had a recent upper and lower endoscopy that was reportedly unremarkable. He has not had a transfusion before. [facility] Patient History Medical History Hyperlipidemia (Chronic) Claudication in peripheral vascular disease (Chronic) Chronic bilateral low back pain (Chronic 07/14/17) Chronic obstructive pulmonary disease (Chronic 07/14/17) Essential hypertension (Chronic 07/14/17) Gastrointestinal hemorrhage with melena (Resolved 07/14/17) Type 2 diabetes mellitus with diabetic polyneuropathy, with long-term current use of insulin (Chronic 07/14/17) Weakness of both lower extremities (Chronic 07/14/17) Abnormal ankle brachial index (LANA) (07/14/17) Colon polyps (Acute 2014) Anxiety (Chronic 2014) Depression (Chronic 2014) Generalized headaches (Chronic) Hearing loss (Chronic 2011) Hyperlipemia (Chronic Unknown) Peripheral neuropathy (Chronic) Sleep apnea (Chronic 2009) Pancreatitis (Resolved 2009) Anxiety (Inactive ~2014) Chronic back pain (Inactive) Colon polyps (Inactive ~2014) Depression (Inactive ~2014) Diabetes (Inactive) Frequent headaches (Inactive) Hearing loss (Inactive ~2011) Herniated disc (Inactive ~2010) Pancreatitis (Inactive ~2009) Peripheral neuropathy (Inactive) Sleep apnea (Inactive ~2009) Family & Social History Family History Father Lung cancer Mother Colon cancer Social History: household members none Prior Living Arrangements Apartment/Condo Safety & Behavioral: Feels Safe in Current Yes Environment Been Physically Hurt or No Threatened By a Person Suicidal Ideation Description None Suicide Plan Description No Plan Tobacco & Substance use: Tobacco type cigarettes Smoking Status Current every day smoker Smoking packs per day 0.5 alcohol intake never Substance Use Type marijuana Meds Home Medications Medication Instructions Recorded Confirmed Type albuterol sulfate [Ventolin HFA] 2 puff INH Q4HP PRN #0 07/04/17 02/05/18 History amlodipine 10 mg PO QDAY #0 07/04/17 02/05/18 History atorvastatin [Lipitor] 40 mg PO HS #0 07/04/17 02/05/18 History budesonide-formoterol [Symbicort] 2 puff INH BID #0 07/04/17 02/05/18 History duloxetine 20 mg PO HS #0 07/04/17 02/05/18 History insulin glargine [Lantus U-100 40 unit SQ HS #0 07/04/17 02/05/18 History Insulin] lisinopril 40 mg PO QDAY #0 07/04/17 02/05/18 History metformin 1,000 mg PO BIDCC #0 07/04/17 02/05/18 History pregabalin [Lyrica] 75 mg PO BID #0 07/04/17 02/05/18 History propranolol 10 mg PO TIDP PRN #0 07/04/17 02/05/18 History tiotropium bromide [Spiriva with 1 puff INH QDAY #0 07/04/17 02/05/18 History HandiHaler] aspirin 81 mg PO DAILY 02/05/18 02/05/18 History clopidogrel 75 mg PO DAILY 02/05/18 02/05/18 History glimepiride 4 mg PO BID 02/05/18 02/05/18 History hydrochlorothiazide 32.5 mg PO DAILY 02/05/18 02/05/18 History metoprolol succinate 50 mg PO DAILY 02/05/18 02/05/18 History mv,Ca,npv-aecv-LO-lycopene 1 tab PO DAILY 02/05/18 02/05/18 History [Centrum Men] omeprazole 20 mg PO DAILY 02/05/18 02/05/18 History Allergies Allergy/AdvReac Type Severity Reaction Status Date / Time itraconazole [From SPORANOX] Allergy Intermediate HIVES Verified 02/05/18 19:28 griseofulvin [GRISEOFULVIN] Allergy Unknown Verified 02/05/18 19:28 Review of Systems Eyes Eyes: Reports system reviewed; no additional complaints, except as documented ENT Ears, Nose, Mouth, and Throat: Yes system reviewed; no additional complaints, except as documented Cardiovascular Cardiovascular: Reports system reviewed; no additional complaints, except as documented Respiratory Respiratory: Reports system reviewed and no additional complaints, except as documented Gastrointestinal Gastrointestinal: Denies abdominal pain, Denies melena, Denies hematochezia, Denies change in bowel habits, Denies coffee ground emesis and Denies hematemesis Genitourinary Genitourinary: Reports system reviewed and no additional complaints, except as documented Musculoskeletal Musculoskeletal: Reports system reviewed; no additional complaints, except as documented Neurologic Neurologic: Reports system reviewed and no additional complaints, except as documented Psychiatric Psychiatric: Reports system reviewed and no additional complaints, except as documented Exam Vital Signs (past 8 hours): - 02/06/18 01:50 02/06/18 01:56 02/06/18 01:58 Temperature 98.3 F 98.3 F 98.3 F Pulse Rate 74 74 74 Respiratory Rate 18 18 18 Blood Pressure 152/62 H 152/62 H 152/62 H Pulse Oximetry 93 02/06/18 02:05 02/06/18 04:45 02/06/18 07:00 Temperature 98.1 F 98.2 F 98.1 F Pulse Rate 68 65 72 Respiratory Rate 18 20 20 Blood Pressure 136/54 L 154/57 H 160/85 H Pulse Oximetry 92 95 02/06/18 08:50 Temperature Pulse Rate Respiratory Rate Blood Pressure Pulse Oximetry 93 Oxygen Delivery Method Room Air Oxygen Flow Rate 3 Narrative Exam Narrative: He appears in no acute distress he is awake alert he is rather resting comfortably HEENT exam unremarkable Neck is supple Heart regular rhythm Lungs clear Abdomen soft nontender Skin warm and dry Neuro exam unremarkable Objective Labs Result Diagrams: 02/06/18 07:08 02/05/18 19:48 Labs: Laboratory Results - last 24 hr 02/05/18 02/05/18 02/05/18 19:48 19:48 19:48 WBC 7.6 RBC 3.51 L Hgb 7.3 L Hct 23.7 L MCV 67.7 L MCH 20.8 L MCHC 30.8 RDW 19.2 H Plt Count 397 Neut % (Auto) 60.9 Lymph % (Auto) 22.1 L Hardeman % (Auto) 8.9 Eos % (Auto) 6.8 H Baso % (Auto) 1.3 Neut # (Auto) 4600 RBC Morphology See below Polychromasia 1+ H Hypochromasia 2+ H Microcytosis 2+ H PT 12.5 INR 1.2 Sodium 138 Potassium 3.9 Chloride 101 Carbon Dioxide 26 BUN 13 Creatinine 0.80 Estimated GFR > 60.0 BUN/Creatinine Ratio 16.3 Glucose 52 L Calcium 8.8 Iron TIBC % Saturation Transferrin Total Bilirubin 0.4 AST 46 ALT 19 L Alkaline Phosphatase 103 Total Creatine Kinase 51 L CK-MB (CK-2) TNP CK-MB (CK-2) Rel Index TNP Troponin I < 0.012 B-Natriuretic Peptide Total Protein 6.4 Albumin 3.6 Globulin 2.8 Albumin/Globulin Ratio 1.3 Nasal Screen MRSA (PCR) Blood Type Antibody Screen Crossmatch 02/05/18 02/05/18 02/05/18 19:48 19:48 21:40 WBC RBC Hgb Hct MCV MCH MCHC RDW Plt Count Neut % (Auto) Lymph % (Auto) Hardeman % (Auto) Eos % (Auto) Baso % (Auto) Neut # (Auto) RBC Morphology Polychromasia Hypochromasia Microcytosis PT INR Sodium Potassium Chloride Carbon Dioxide BUN Creatinine Estimated GFR BUN/Creatinine Ratio Glucose Calcium Iron 15 L TIBC 383 % Saturation 4 L Transferrin 370 Total Bilirubin AST ALT Alkaline Phosphatase Total Creatine Kinase CK-MB (CK-2) CK-MB (CK-2) Rel Index Troponin I B-Natriuretic Peptide 254.0 H Total Protein Albumin Globulin Albumin/Globulin Ratio Nasal Screen MRSA (PCR) Blood Type A Positive Antibody Screen Negative Crossmatch See Detail 02/05/18 02/06/18 22:20 07:08 WBC 7.8 RBC 4.14 L Hgb 9.6 L Hct 28.9 L MCV 69.9 L MCH 23.1 L MCHC 33.0 RDW 21.3 H Plt Count 301 Neut % (Auto) 60.8 Lymph % (Auto) 24.8 L Hardeman % (Auto) 7.0 Eos % (Auto) 6.3 H Baso % (Auto) 1.1 Neut # (Auto) 4700 RBC Morphology Polychromasia Hypochromasia Microcytosis PT INR Sodium Potassium Chloride Carbon Dioxide BUN Creatinine Estimated GFR BUN/Creatinine Ratio Glucose Calcium Iron TIBC % Saturation Transferrin Total Bilirubin AST ALT Alkaline Phosphatase Total Creatine Kinase CK-MB (CK-2) CK-MB (CK-2) Rel Index Troponin I B-Natriuretic Peptide Total Protein Albumin Globulin Albumin/Globulin Ratio Nasal Screen MRSA (PCR) Negative for mrsa Blood Type Antibody Screen Crossmatch Assessment & Plan Plan: Assessment/Plan Narrative: Severe symptomatic anemia presume from GI blood loss which has been chronic. Patient at this point is symptomatic and requires a transfusion 2 units of blood have been transfused and his hematocrit post transfusion is 29. The patient has follow-up scheduled with the [facility] on Friday of next week. He will follow up with the [place] and will be discharged from the hospital this morning Quality VTE Deep Vein Thrombosis/Pulmonary Embolism Present on Admission: No
--- NOTE | 2018-02-06 10:34 | CM.DANOTE ---
Discharge Planning/Care Management DCP: assessment: Case received, EMR reviewed. Team Rounds held at [address] Yeager noted that pt was stable for d/c home. Checked in with pt now. He is up in the room, preparing to leave. His son is coming to pick him up. Pt is a 72 year old male who admitted last night to care of hospitalist team. Payer: [facility]. Pt will follow up at the [place] [facility] Saturday 02/10. CM Discharge Assessment Start: 02/06/18 10:33 Freq: Status: Active Protocol: Document 02/06/18 10:33 ITV (Rec: 02/06/18 10:34 ITV [id number]) Discharge Planning Assessment History Provided By Patient Medical Record Whiteboard Updated in Patient Room with No name and ext. # of Licensed Mental Health Professional Comment pt is process of discharging. No need for board update Review Status In Process Next Review Type Continued Stay Review
== END 2018-02-06 11:24 | disposition home or self-care (01) ==
LOC: ED 21:47 → AC 21:52 → ICU 22:10
PROVIDERS: Admitting Provider Internal Medicine; Emergency Provider Nurse Practitioner Family; PCP Family Medicine; Visit Provider Internal Medicine
DX: D64.9 Anemia, unspecified (principal); R53.83 Other fatigue; F17.210 Nicotine dependence, cigarettes, uncomplicated
CPT/HCPCS: 36415; 36430; 36591; 71045; 80053; 82550; 82962; 83540; 83550; 83880; 84484; 85025; 85610; 86850; 86900; 86901; 87797; 93005; 94760; 96360; 96361; 99283; 99285; G0378; P9016

== ENCOUNTER 2019-03-02 16:09 | Inpatient (IN) | payer OTHER, SELFPAY ==
[2019-03-02] VITALS (15 sets, daily range): BP systolic 128–203; BP diastolic 52–92; PULSE 56–69; RESP 8–24; TEMP 36.4–37.1; O2SAT 88–92; BMI 25.7
--- NOTE | 2019-03-02 | DI.ECHO.S_ITS ---
[facility] +---------+ : : [address] [place] [address] : : : : [id number] : : : : Phone: [phone]---------+ Echocardiogram Report + + :Name: JAVIER PETTIT Study Date: 03/03/2019 Height: 71 in : :[facility] Weight: 185 lb : : Gender: Male BSA: 2.0 m2 : :: 1945 Age: 73 yrs BP: 194/87 mmHg: :Reason For Study: CHF : : Performed By: [facility] Staff : :Referring: SHAWNEE AGARWAL : + + Interpretation Summary 1) Mildly increased left ventricular thickness (concentric) with normal size, normal wall motion, and normal systolic function (EF 60-65%). 2) The right ventricle is mildly dilated. The right ventricular systolic function is normal. 3) No significant valvular stenosis or regurgitation.. 4) Severe hypertension during the study (BP 194/87mmHg). 5) Compared to the Echo done 06/30/2015, LVH and severe HTN is present on this study. Procedure: A two-dimensional transthoracic echocardiogram with color flow and Doppler was performed. The study quality was technically adequate. Prior echo performed on 06/30/15. The patient was in normal sinus rhythm during the exam. Left Ventricle: The left ventricle is normal in size. There is mild concentric left ventricular hypertrophy. Left ventricular systolic function is normal. The ejection fraction is estimated to be 60-65%. Left ventricular wall motion is normal. Right Ventricle: The right ventricle is mildly dilated. The right ventricular systolic function is normal. Atria: The left atrium is borderline dilated. The right atrium is mildly dilated. Doppler suggests left to right atrial shunt. Mitral Valve: The mitral valve leaflets appear mildly thickened, but open well. Mild to moderate posterior mitral annular calcification. There is mild mitral regurgitation. Aortic Valve: There is mild aortic valve sclerosis. The aortic valve is trileaflet. There is minimally reduced leaflet mobility. There is no aortic valve stenosis. No aortic regurgitation is present. Tricuspid Valve: The tricuspid valve is normal in structure and function. There is trace tricuspid regurgitation. The right ventricular systolic pressure is estimated to be at least 35 mmHg based on an estimated right atrial pressure of 8 mm Hg. Pulmonic Valve: The pulmonic valve is not well visualized. There is trace pulmonic regurgitation. Great Vessels: The aortic root is normal size. The dimensions of the ascending aorta are normal. The pulmonary artery is normal size. The IVC is dilated (diameter is greater than 2.1 cm) yet it collapses greater than 50% with a sniff. This suggests a right atrial pressure of 8 mm Hg. Pericardium/ Pleura There is a trivial pericardial effusion noted. There is no pleural effusion. MMode/2D Measurements & Calculations LVIDd: 5.5 cm LVOT diam: 2.0 cm LVIDs: 3.7 cm Ao root diam: 3.2 cm FS: 32.8 % EPSS: 0.74 cm IVSd: 1.2 cm LVPWd: 1.2 cm LV lindsay. diameter/BSA (cm/m^2): 2.7 LV sys. diameter/BSA (cm/m^2): 1.8 LA A2 area: 20.5 cm2 RA long axis: 5.1 cm LA A4 area: 19.5 cm2 RA area: 19.9 cm2 LA length (vol): 5.1 cm RA vol: 66.6 ml LA vol: 67.1 ml RA : 32.6 ml/m2 LA vol index: 32.9 ml/m2 TAPSE: 3.2 cm Doppler Measurements & Calculations Ao V2 max: 140.6 cm/sec LVOT Max Aurelio: 100.3 cm/sec Ao V2 mean: 103.9 cm/sec LV V1 max P.0 mmHg Ao max P.9 mmHg LV V1 VTI: 26.0 cm Ao mean P.8 mmHg MICHELLE(I,D): 2.2 cm2 Ao V2 VTI: 35.7 cm MICHELLE(V,D): 2.2 cm2 sev ratio: 0.73 MICHELLE indexed to BSA (cm^2/m^2): 1.1 MV E max aurelio: 132.6 cm/sec TR max aurelio: 263.0 cm/sec MV A max aurelio: 144.7 cm/sec TR max P.7 mmHg MV E/A: 0.92 Med Peak E' Aurelio: 4.4 cm/sec E/E' med: 29.9 Lat Peak E' Aurelio: 7.4 cm/sec E/E' lat: 18.0 E/e' average: 23.9 MV dec time: 0.19 sec MVA(VTI): 1.7 cm2 MV V2 mean: 93.9 cm/sec SV(LVOT): 79.5 ml MV mean P.0 mmHg MV V2 VTI: 46.8 cm MV P1/2t-pr_phl: 95.5 msec Reading Physician:12:36 PM
--- NOTE | 2019-03-02 16:31 | ED.SOB ---
HPI - SOB/Dyspnea General Chief Complaint: Shortness of Breath/Dyspnea Stated Complaint: SOB Time Seen by Provider: 03/02/19 16:21 Source: patient Mode of arrival: Wheelchair Limitations: no limitations History of Present Illness HPI Narrative: Patient is a 73-year-old male who presents with increasing shortness of breath with exertion. He says his is progressively gotten over the last day or so especially today. He also notices all when he walks he gets extremely short of breath and experiences some chest discomfort. He thinks the chest pain is from difficulty breathing when he stops of both. The chest pain does not radiate he does not have any chest pain now. He actually is noted to be hypoxic at 89% on room air. He denies any swelling in his legs. He denies any orthopnea is. He has not had any fever or chills no sweats. He sometimes has a productive cough but mostly not. He does have a history of smoking at least 40-50 pack year history. Last year he was admitted to the hospital for anemia possible GI bleed. He required blood transfusion no further admissions or workup since. Related Data Home Medications Medication Instructions Recorded Confirmed Lantus U-100 Insulin 40 unit SQ HS #0 07/04/17 03/02/19 Symbicort 2 puff INH BID #0 07/04/17 03/02/19 albuterol sulfate [Ventolin HFA] 2 puff INH Q4HP PRN #0 07/04/17 03/02/19 amlodipine 10 mg PO QDAY #0 07/04/17 03/02/19 atorvastatin [Lipitor] 40 mg PO HS #0 07/04/17 03/02/19 duloxetine 20 mg PO HS #0 07/04/17 03/02/19 lisinopril 40 mg PO QDAY #0 07/04/17 03/02/19 metformin 1,000 mg PO BIDCC #0 07/04/17 03/02/19 pregabalin [Lyrica] 75 mg PO BID #0 07/04/17 03/02/19 propranolol 10 mg PO TIDP PRN #0 07/04/17 03/02/19 tiotropium bromide [Spiriva with 1 puff INH QDAY #0 07/04/17 02/05/18 HandiHaler] aspirin 81 mg PO DAILY 02/05/18 03/02/19 clopidogrel 75 mg PO DAILY 02/05/18 03/02/19 glimepiride 4 mg PO BID 02/05/18 03/02/19 hydrochlorothiazide 32.5 mg PO DAILY 02/05/18 02/05/18 metoprolol succinate 50 mg PO DAILY 02/05/18 03/02/19 mv,Ca,cdb-frfv-RB-lycopene 1 tab PO DAILY 02/05/18 02/05/18 [Centrum Men] omeprazole 20 mg PO DAILY 02/05/18 02/05/18 Allergies Allergy/AdvReac Type Severity Reaction Status Date / Time itraconazole [From SPORANOX] Allergy Intermediate HIVES Verified 02/05/18 19:28 griseofulvin [GRISEOFULVIN] Allergy Unknown Verified 02/05/18 19:28 Review of Systems Review of Systems ROS Unobtainable: All systems reviewed & are unremarkable except as noted in HPI and below Constitutional Constitutional: Reports body ache(s), Reports chills and Reports fatigue ENT Ears, Nose, Mouth, and Throat: Denies change in voice, Denies neck pain and Denies sore throat Cardiovascular Cardiovascular: Reports as per HPI, Reports chest pain, Denies syncope, Denies rapid heart rate, Reports dyspnea on exertion and Denies orthopnea Respiratory Respiratory: Reports cough, Denies hemoptysis, Reports dyspnea on exertion and Denies wheezing Gastrointestinal Gastrointestinal: Denies abdominal pain, Denies change in bowel habits, Denies diarrhea, Denies nausea and Denies vomiting Musculoskeletal Musculoskeletal: Denies neck pain Integumentary/Breasts Skin/Breast: Denies pruritus, Denies erythema, Denies rash and Denies wounds Neurologic Neurologic: Denies syncope Endocrine Endocrine: Reports fatigue Allergic/Immunologic Allergic/Immunologic: Denies wheezing Patient History Medical History Abnormal ankle brachial index (LANA) (07/14/17) Anxiety (Inactive ~2014) Anxiety (Chronic 2014) Chronic back pain (Inactive) Chronic bilateral low back pain (Chronic 07/14/17) Chronic obstructive pulmonary disease (Chronic 07/14/17) Claudication in peripheral vascular disease (Chronic) Colon polyps (Inactive ~2014) Colon polyps (Acute 2014) Depression (Inactive ~2014) Depression (Chronic 2014) Diabetes (Inactive) Essential hypertension (Chronic 07/14/17) Frequent headaches (Inactive) Gastrointestinal hemorrhage with melena (Resolved 07/14/17) Generalized headaches (Chronic) Hearing loss (Inactive ~2011) Hearing loss (Chronic 2011) Herniated disc (Inactive ~2010) Hyperlipemia (Chronic Unknown) Hyperlipidemia (Chronic) Pancreatitis (Inactive ~2009) Pancreatitis (Resolved 2009) Peripheral neuropathy (Inactive) Peripheral neuropathy (Chronic) Sleep apnea (Inactive ~2009) Sleep apnea (Chronic 2009) Type 2 diabetes mellitus with diabetic polyneuropathy, with long-term current use of insulin (Chronic 07/14/17) Weakness of both lower extremities (Chronic 07/14/17) Surgical History History of back surgery (Chronic) Family History Father Lung cancer Mother Colon cancer Social History marital status: household members: none pets and animals: Yes education level: high school 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: Confucianist seatbelt use: always water heater temp set < 120 deg: Yes working smoke detector in home: Yes fire extinguisher in home: No carbon monox detector in home: Yes firearms in home: No do you feel safe at home: Yes Smoking Status: Current every day smoker alcohol intake: never substance use type: does not use during the past year weight has: decreased > 10 lbs well-balanced diet: about half the time daily servings fruits/ve-1 caffeine: Yes eating out: 1-3 times/week Substance Use Type: marijuana Exam Initial Vital Signs Initial Vital Signs: Vital Signs Temperature 97.6 F 03/02/19 16:24 Pulse Rate 60 03/02/19 16:24 Respiratory Rate 8 L 03/02/19 16:24 Blood Pressure 162/59 H 03/02/19 16:24 Pulse Oximetry 89 L 03/02/19 16:24 GENERAL: Alert male appears chronically ill HEENT: Head atraumatic,EOMI, pupils reactive, face symmetric CARDIOVASCULAR: Regular rate and rhythm without murmurs, rubs or gallops. RESPIRATORY: Breath sounds equal bilaterally, no wheezes rales or rhonchi. ABDOMEN: Soft, nontender. Normoactive bowel sounds all 4 quadrants. No guarding or rebound. EXTREMITIES: Normal range of motion, no clubbing or edema. Neurovascularly intact NEUROLOGICAL: Alert and oriented x4.Normal gait and speech. Cranial nerves II through XII grossly intact. SKIN: Warm, dry, no laceration, no petechiae, no rashes or lesions. Course Orders Ordered: Acetaminophen (Tylenol) 650 mg PO Q6HR PRN PRN Reason: As Needed for Fever/Mild Pain Albuterol (Proventil) 1.25 mg INH RTQ4HR PRN PRN Reason: Shortness Of Breath Or Wheezing Last Admin: 03/03/19 02:57 Dose: 1.25 mg Documented by: CONRAD Albuterol/Ipratropium (Duoneb) 3 ml INH RTQ4HR PRN PRN Reason: Shortness Of Breath Last Admin: 03/02/19 22:50 Dose: 3 ml Documented by: CONRAD Amlodipine Besylate (Norvasc) 10 mg PO DAILY COUNT INCLUDES THE [facility] Aspirin (Aspirin Ec) 81 mg PO DAILY COUNT INCLUDES THE [facility] Atorvastatin Calcium (Lipitor) 40 mg PO BEDTIME COUNT INCLUDES THE [facility] Last Admin: 03/02/19 22:21 Dose: Not Given Documented by: CATRINA Clopidogrel Bisulfate (Plavix) 75 mg PO DAILY COUNT INCLUDES THE [facility] Dextrose (D50w) 25 gm IV PRN PRN PRN Reason: Hypoglycemia Duloxetine HCl (Cymbalta) 20 mg PO BEDTIME COUNT INCLUDES THE [facility] Last Admin: 03/02/19 22:22 Dose: Not Given Documented by: CATRINA Heparin Sodium (Porcine) (Heparin) 5,000 unit SUBCUT BID COUNT INCLUDES THE [facility] Last Admin: 03/02/19 22:05 Dose: 5,000 unit Documented by: CATRINA Insulin Aspart (Novolog Flexpen) 0 unit SUBCUT ACHS COUNT INCLUDES THE [facility]; Protocol Last Admin: 03/02/19 22:03 Dose: 1 unit Documented by: CATRINA Cosigned by: JOSE Insulin Glargine (Lantus Solostar (Pen)) 40 unit SUBCUT BEDTIME COUNT INCLUDES THE [facility] Last Admin: 03/02/19 22:04 Dose: 10 unit Documented by: CATRINA Cosigned by: JOSE Magnesium Hydroxide (Milk Of Magnesia) 30 ml PO DAILY PRN PRN Reason: Constipation Metoprolol Succinate (Toprol Xl) 50 mg PO DAILY COUNT INCLUDES THE [facility] Naloxone HCl (Narcan) 0.2 mg IV Q2MIN PRN PRN Reason: Opiate Reversal Ondansetron HCl (Zofran) 4 mg IV Q6HR SHIRAZ Last Admin: 03/03/19 05:46 Dose: Not Given Documented by: Admin: 03/03/19 00:05 Dose: Not Given Documented by: DICK Discontinued Medications Albuterol/Ipratropium (Duoneb) 3 ml INH NOW ONE Stop: 03/02/19 16:47 Last Admin: 03/02/19 17:02 Dose: 3 ml Documented by: ANTON Aspirin (Aspirin Ec) 81 mg PO DAILY COUNT INCLUDES THE [facility] Furosemide (Lasix) 40 mg IV NOW ONE Stop: 03/02/19 17:53 Last Admin: 03/02/19 18:33 Dose: 40 mg Documented by: AARON Methylprednisolone (Solu-Medrol 125 Mg Vial) 125 mg IV NOW ONE Stop: 03/02/19 16:47 Last Admin: 03/02/19 17:34 Dose: 125 mg Documented by: AARON Vital Signs Vital signs: Vital Signs - 8 hr 03/02/19 16:24 03/02/19 16:30 03/02/19 16:45 Temperature 97.6 F Pulse Rate 60 58 L 56 L Respiratory Rate 8 L 22 24 Blood Pressure 162/59 H Blood Pressure [Right Arm] 184/63 H 188/60 H Pulse Oximetry 89 L 92 92 03/02/19 17:03 Temperature Pulse Rate 68 Respiratory Rate 18 Blood Pressure Blood Pressure [Right Arm] Pulse Oximetry 92 MDM - SOB/Dyspnea Lab Data Attestation: I reviewed the patient's lab results. Result diagrams: 03/03/19 04:55 03/03/19 04:55 Labs: Lab Results 03/02/19 03/02/19 03/02/19 Range/Units 16:26 16:26 16:26 WBC 10.1 (4.5-11.0) X10^3/uL RBC 3.94 L (4.5-5.9) X10^6/uL Hgb 11.1 L (13.5-17.5) g/dL Hct 33.6 L (41-53) % MCV 85.3 (80-100) fL MCH 28.2 (26-34) PG MCHC 33.1 (30-36) % RDW 17.2 H (11.6-14.8) % Plt Count 334 (150-400) X10^3/uL Neut % (Auto) 69.7 (50-75) % Lymph % (Auto) 17.1 L (25-40) % [place] % (Auto) 8.2 (3-14) % Eos % (Auto) 3.6 (2-4) % Baso % (Auto) 1.4 (0-2) % Neut # (Auto) 7000 (9963-4818) /uL Lymph # (Auto) 1700 (6481-8183) /uL [place] # (Auto) 800 (0-900) /uL Eos # (Auto) 400 (0-450) /uL Baso # (Auto) 100 (0-100) /uL PT 12.7 (10.1-12.7) SECONDS INR 1.1 (0.9-1.3) APTT 36 (26.4-36.2) SECONDS Sodium 136 L (137-145) mmol/L Potassium 4.4 (3.4-5.1) mmol/L Chloride 105 (98-107) mmol/L Carbon Dioxide 22 (22-32) mmol/L BUN 33 H (9-20) mg/dL Creatinine 1.80 H (0.66-1.25) mg/dL Estimated GFR 37.0 L (>60) mL/min BUN/Creatinine Ratio 18.3 (6-22) Glucose 242 H (80-110) mg/dL Lactate (0.7-2.1) mmol/L Calcium 9.0 (8.4-10.2) mg/dL Magnesium 2.0 (1.6-2.3) mg/dL Total Bilirubin 0.7 (0.2-1.3) mg/dL AST 19 (17-59) IU/L ALT 13 (<50) IU/L Alkaline Phosphatase 126 (38-126) U/L Total Creatine Kinase 109 (55-170) U/L CK-MB (CK-2) 2.36 (<2.37) ng/mL CK-MB (CK-2) Rel Index 2.2 (1.5-5.0) % Troponin I 0.026 (0.01-0.034) ng/mL B-Natriuretic Peptide 1330 H (<100) Total Protein 6.5 (6.3-8.2) g/dL Albumin 3.7 (3.5-5.0) g/dL Globulin 2.8 (1.7-4.1) g/dL Albumin/Globulin Ratio 1.3 (1.0-2.8) Lipase 22 L (23-300) U/L 03/02/19 03/02/19 Range/Units 16:26 18:57 WBC (4.5-11.0) X10^3/uL RBC (4.5-5.9) X10^6/uL Hgb (13.5-17.5) g/dL Hct (41-53) % MCV (80-100) fL MCH (26-34) PG MCHC (30-36) % RDW (11.6-14.8) % Plt Count (150-400) X10^3/uL Neut % (Auto) (50-75) % Lymph % (Auto) (25-40) % [place] % (Auto) (3-14) % Eos % (Auto) (2-4) % Baso % (Auto) (0-2) % Neut # (Auto) (9986-3321) /uL Lymph # (Auto) (4436-8863) /uL [place] # (Auto) (0-900) /uL Eos # (Auto) (0-450) /uL Baso # (Auto) (0-100) /uL PT (10.1-12.7) SECONDS INR (0.9-1.3) APTT (26.4-36.2) SECONDS Sodium (137-145) mmol/L Potassium (3.4-5.1) mmol/L Chloride (98-107) mmol/L Carbon Dioxide (22-32) mmol/L BUN (9-20) mg/dL Creatinine (0.66-1.25) mg/dL Estimated GFR (>60) mL/min BUN/Creatinine Ratio (6-22) Glucose (80-110) mg/dL Lactate 2.3 H 1.0 (0.7-2.1) mmol/L Calcium (8.4-10.2) mg/dL Magnesium (1.6-2.3) mg/dL Total Bilirubin (0.2-1.3) mg/dL AST (17-59) IU/L ALT (<50) IU/L Alkaline Phosphatase (38-126) U/L Total Creatine Kinase (55-170) U/L CK-MB (CK-2) (<2.37) ng/mL CK-MB (CK-2) Rel Index (1.5-5.0) % Troponin I (0.01-0.034) ng/mL B-Natriuretic Peptide (<100) Total Protein (6.3-8.2) g/dL Albumin (3.5-5.0) g/dL Globulin (1.7-4.1) g/dL Albumin/Globulin Ratio (1.0-2.8) Lipase (23-300) U/L Imaging Data Chest x-ray: Radiologist's impression: PROCEDURE: XR CHEST 1V INDICATIONS: chest pain TECHNIQUE: One view of the chest was acquired. COMPARISON: [facility], XR CHEST 1V, 02/05/2018, 20:13. FINDINGS: Surgical changes and devices: None. Lungs and pleura: The bibasilar opacities partially obscure the diaphragms, bilaterally. The degree of consolidation has increased in the interim. The pulmonary vascular markings are also increased. There may be small effusions. There is no definite pneumothorax. Mediastinum: Mediastinal contours appear normal. Heart size is normal. There is aortic atherosclerosis. Bones and chest wall: No suspicious bony lesions. Overlying soft tissues appear unremarkable. IMPRESSION: 1. Bibasilar consolidation has increased in the interim and likely represents atelectasis and small effusions. Superimposed pneumonia is difficult to exclude. 2. Probable pulmonary edema. Dictated by: Jimmy Tidwell M.D. on 03/02/2019 at 16:01 Approved by: Jimmy Tidwell M.D. on 03/02/2019 at 16:03 CT scan - chest: Radiologist's impression: PROCEDURE: CT ANGIO CHEST PE PROTOCOL INDICATIONS: sob hypoxia TECHNIQUE: After the administration of intravenous contrast, 2 mm thick sections acquired from the pulmonary apices to the posterior costophrenic angles. 3-dimensional maximum intensity projection (MIP) coronal and sagittal reformats were then acquired through the thorax. For radiation dose reduction, the following was used: automated exposure control, adjustment of mA and/or kV according to patient size. COMPARISON: [facility], XR CHEST 1V, 03/02/2019, 16:37. [facility], CT, PE STUDY (CTA CHEST), 01/10/2016, 13:27. FINDINGS: Image quality: Excellent. Pulmonary arteries: Pulmonary arteries are normal in size, and demonstrate no intraluminal filling defects to suggest central pulmonary embolism. Lungs and pleura: Mild to moderate bilateral pleural effusions with areas of superimposed consolidation. Mediastinum: Heart size is normal, without pericardial effusion. Mild mediastinal adenopathy is present. Thoracic aorta is normal in caliber and enhancement. Esophagus is normal in caliber, without hiatal hernia. Bones and chest wall: No suspicious bony lesions. Ribs and thoracic spine appear intact throughout. Thyroid gland is unremarkable. No axillary or supraclavicular adenopathy. Abdomen: Left-sided pneumobilia is again identified. Visualized upper abdominal solid organs appear normal in the early arterial phase of enhancement. IMPRESSION: 1. Mild to moderate bilateral effusions with superimposed areas of consolidation suggestive of atelectasis and/or pneumonia. 2. No pulmonary embolism. Dictated by: Eulalia Alcantar M.D. on 03/02/2019 at 17:47 Approved by: Eulalia Alcantar M.D. on 03/02/2019 at 17:50 ECG Data Attestation: I personally reviewed and interpreted this ECG as follows: Prior ECG tracings: available for review Interpretation: Normal sinus rhythm rate 58 p.r. interval 151 QRS [address] elevations or depressions T-wave inversion noted in lead 3 only similar to previous EKG MDM Narrative Medical decision making narrative: Patient denies any fever a productive cough rigors or chills. No leukocytosis minimally elevated lactic acid not suggestive of pneumonia. He does however have an elevated BNP as of 1300 which is new. He has no prior history of CHF. He is also noted to be quite hypertensive in the emergency department. He has no chest pain. He is requiring at least 3 L of oxygen. He was also given 1 dose of Lasix and albuterol in the ED. Minimal improvement. Discussed case with Dr. Pearl updated on symptoms and test results agrees with admission. Discharge Plan Departure Patient Disposition: Admitted As Inpatient Clinical Impression: CHF (congestive heart failure) Qualifiers: Heart failure type: unspecified Heart failure chronicity: unspecified Qualified Code(s): I50.9 - Heart failure, unspecified Discharge Date/Time: 11/26/19 19:50 Admit Date/Time: 03/02/19 18:57 Admit Provider: Chandan Coleman
--- NOTE | 2019-03-02 16:35 | DI.RAD.S_ITS ---
PROCEDURE: XR CHEST 1V INDICATIONS: chest pain TECHNIQUE: One view of the chest was acquired. COMPARISON: [facility], CR, XR CHEST 1V, 02/05/2018, 20:13. FINDINGS: Surgical changes and devices: None. Lungs and pleura: The bibasilar opacities partially obscure the diaphragms, bilaterally. The degree of consolidation has increased in the interim. The pulmonary vascular markings are also increased. There may be small effusions. There is no definite pneumothorax. Mediastinum: Mediastinal contours appear normal. Heart size is normal. There is aortic atherosclerosis. Bones and chest wall: No suspicious bony lesions. Overlying soft tissues appear unremarkable. IMPRESSION: 1. Bibasilar consolidation has increased in the interim and likely represents atelectasis and small effusions. Superimposed pneumonia is difficult to exclude. 2. Probable pulmonary edema. Dictated by: Jimmy Tidwell M.D. on 03/02/2019 at 16:01 Approved by: Jimmy Tidwell M.D. on 03/02/2019 at 16:03
--- NOTE | 2019-03-02 16:40 | DI.CT.S_ITS ---
PROCEDURE: CT ANGIO CHEST PE PROTOCOL INDICATIONS: sob hypoxia TECHNIQUE: After the administration of intravenous contrast, 2 mm thick sections acquired from the pulmonary apices to the posterior costophrenic angles. 3-dimensional maximum intensity projection (MIP) coronal and sagittal reformats were then acquired through the thorax. For radiation dose reduction, the following was used: automated exposure control, adjustment of mA and/or kV according to patient size. COMPARISON: [facility], CR, XR CHEST 1V, 03/02/2019, 16:37. [facility], CT, PE STUDY (CTA CHEST), 01/10/2016, 13:27. FINDINGS: Image quality: Excellent. Pulmonary arteries: Pulmonary arteries are normal in size, and demonstrate no intraluminal filling defects to suggest central pulmonary embolism. Lungs and pleura: Mild to moderate bilateral pleural effusions with areas of superimposed consolidation. Mediastinum: Heart size is normal, without pericardial effusion. Mild mediastinal adenopathy is present. Thoracic aorta is normal in caliber and enhancement. Esophagus is normal in caliber, without hiatal hernia. Bones and chest wall: No suspicious bony lesions. Ribs and thoracic spine appear intact throughout. Thyroid gland is unremarkable. No axillary or supraclavicular adenopathy. Abdomen: Left-sided pneumobilia is again identified. Visualized upper abdominal solid organs appear normal in the early arterial phase of enhancement. IMPRESSION: 1. Mild to moderate bilateral effusions with superimposed areas of consolidation suggestive of atelectasis and/or pneumonia. 2. No pulmonary embolism. Dictated by: Eulalia Alcantar M.D. on 03/02/2019 at 17:47 Approved by: Eulalia Alcantar M.D. on 03/02/2019 at 17:50
[2019-03-02 16:43] LABS: Add Manual Diff / Slide Review NO; Basophils Absolute Auto 100 /uL (0-100); Basophils Percent Auto 1.4 % (0-2); Eosinophils Absolute Auto 400 /uL (0-450); Eosinophils Percent Auto 3.6 % (2-4); Hematocrit 33.6 % (41-53); Hemoglobin 11.1 g/dL (13.5-17.5); INR 1.1 (0.9-1.3); Lymphocytes Absolute Auto 1700 /uL (1100-4500); Lymphocytes Percent Auto 17.1 % (25-40); Mean Corpuscular HGB Conc 33.1 % (30-36); Mean Corpuscular Hemoglobin 28.2 PG (26-34); Mean Corpuscular Volume 85.3 fL (80-100); Monocytes Absolute Auto 800 /uL (0-900); Monocytes Percent Auto 8.2 % (3-14); Neutrophils Absolute Auto 7000 /uL (1500-7000); Neutrophils Percent Auto 69.7 % (50-75); Platelet Count 334 X10^3/uL (150-400); Prothrombin Time 12.7 SECONDS (10.1-12.7); Red Blood Cell Count 3.94 X10^6/uL (4.5-5.9); Red Cell Distribution Width 17.2 % (11.6-14.8); White Blood Cell Count 10.1 X10^3/uL (4.5-11.0)
[2019-03-02 16:46] LABS: PTT Partial Thromboplastin Tim 36 SECONDS (26.4-36.2)
[2019-03-02 16:51] LABS: Alanine Aminotransferase 13 IU/L (<50); Albumin 3.7 g/dL (3.5-5.0); Albumin Globulin Ratio 1.3 (1.0-2.8); Alkaline Phosphatase 126 U/L (38-126); Aspartate Aminotransferase 19 IU/L (17-59); BUN Creatinine Ratio 18.3 (6-22); Bilirubin Total 0.7 mg/dL (0.2-1.3); Blood Urea Nitrogen 33 mg/dL (9-20); Carbon Dioxide 22 mmol/L (22-32); Chloride 105 mmol/L (98-107); Creatine Kinase 109 U/L (55-170); Globulin 2.8 g/dL (1.7-4.1); Glucose 242 mg/dL (80-110); HEMOLYSIS < 15 (0-50); Lactate (Lactic Acid) 2.3 mmol/L (0.7-2.1); Lipase 22 U/L (23-300); Potassium 4.4 mmol/L (3.4-5.1); Sodium 136 mmol/L (137-145); Total Protein 6.5 g/dL (6.3-8.2)
[2019-03-02 17:00] LABS: B Type Natriuretic Peptide 1330 (<100)
[2019-03-02] MEDS: ALBUTEROL/IPRATROPIUM 3 ML AMPUL INH ×2 (17:02→22:50)
[2019-03-02 17:03] LABS: Troponin I 0.026 ng/mL (0.01-0.034)
[2019-03-02 17:06] LABS: CKMB % Relative Index 2.2 % (1.5-5.0); Creatine Kinase MB 2.36 ng/mL (<2.37)
[2019-03-02] MEDS: methylPREDNISolone 125 MG/2 ML VIAL IV (17:34)
[2019-03-02] MEDS: FUROSEMIDE 40 MG/4 ML VIAL IV (18:33)
[2019-03-02 18:38] LABS: Reflexed Lactate in 2 Hours Y
--- NOTE | 2019-03-02 20:26 | P.HP_ITS ---
History of Present Illness History of Present Illness Date Patient Seen: 03/02/19 Time Patient Seen: 20:00 Chief complaint: SOB Narrative: Chief complaint: Shortness of breath found to be a CHF exacerbation Mauro Espino is a pleasant 73 y.o. male with multiple medical problems including hypertension, diabetes type 2, peripheral arterial disease and hyperlipidemia was in his usual state of health when he developed shortness of breath approximately 4 days ago which has been worsening. He is a non oxygen dependent male who had a complaint of exertional shortness of breath, fever and chills, chest pain that lasted for one hour and resolved, and urinary inc ontinence and retention. Denies cough, nausea or vomiting, or abdominal pain. He recently was discharged for having back surgery, a laminectomy of T11-12 done in [place] on January 22 of this year. He states he has a lot of neuropathy of his hands and feet, but is pain is significantly improved since the surgery. States his diabetes is under good control, stated his last A1c was 7.1. States he has had urinary dribbling and is in the process of obtaining a referral to a urologist for this. He states he has frequency but does not feel he empties completely and this is new. Patient History Medical History Abnormal ankle brachial index (LANA) (07/14/17) Anxiety (Inactive ~2014) Anxiety (Chronic 2014) Chronic back pain (Inactive) Chronic bilateral low back pain (Chronic 07/14/17) Chronic obstructive pulmonary disease (Chronic 07/14/17) Claudication in peripheral vascular disease (Chronic) Colon polyps (Inactive ~2014) Colon polyps (Acute 2014) Depression (Inactive ~2014) Depression (Chronic 2014) Diabetes (Inactive) Essential hypertension (Chronic 07/14/17) Frequent headaches (Inactive) Gastrointestinal hemorrhage with melena (Resolved 07/14/17) Generalized headaches (Chronic) Hearing loss (Inactive ~2011) Hearing loss (Chronic 2011) Herniated disc (Inactive ~2010) Hyperlipemia (Chronic Unknown) Hyperlipidemia (Chronic) Pancreatitis (Inactive ~2009) Pancreatitis (Resolved 2009) Peripheral neuropathy (Inactive) Peripheral neuropathy (Chronic) Sleep apnea (Inactive ~2009) Sleep apnea (Chronic 2009) Type 2 diabetes mellitus with diabetic polyneuropathy, with long-term current use of insulin (Chronic 07/14/17) Weakness of both lower extremities (Chronic 07/14/17) Surgical History History of back surgery (Chronic) Family & Social History Family History Father Lung cancer Mother Colon cancer Social History: household members none Safety & Behavioral: Feels Safe in Current Yes Environment Tobacco & Substance use: Tobacco type .5-.75 ppd, cigarettes, plans to quit April 07 Smoking Status Current every day smoker alcohol intake never Substance Use Type marijuana Meds Home Medications and Allergies Home Medications Medication Instructions Recorded Confirmed Type Lantus U-100 Insulin 40 unit SQ HS #0 07/04/17 03/02/19 History Symbicort 2 puff INH BID #0 07/04/17 03/02/19 History albuterol sulfate [Ventolin HFA] 2 puff INH Q4HP PRN #0 07/04/17 03/02/19 History amlodipine 10 mg PO QDAY #0 07/04/17 03/02/19 History atorvastatin [Lipitor] 40 mg PO HS #0 07/04/17 03/02/19 History duloxetine 20 mg PO HS #0 07/04/17 03/02/19 History lisinopril 40 mg PO QDAY #0 07/04/17 03/02/19 History metformin 1,000 mg PO BIDCC #0 07/04/17 03/02/19 History pregabalin [Lyrica] 75 mg PO BID #0 07/04/17 03/02/19 History propranolol 10 mg PO TIDP PRN #0 07/04/17 03/02/19 History tiotropium bromide [Spiriva with 1 puff INH QDAY #0 07/04/17 02/05/18 History HandiHaler] aspirin 81 mg PO DAILY 02/05/18 03/02/19 History clopidogrel 75 mg PO DAILY 02/05/18 03/02/19 History glimepiride 4 mg PO BID 02/05/18 03/02/19 History hydrochlorothiazide 32.5 mg PO DAILY 02/05/18 02/05/18 History metoprolol succinate 50 mg PO DAILY 02/05/18 03/02/19 History mv,Ca,jrt-jtcx-SH-lycopene 1 tab PO DAILY 02/05/18 02/05/18 History [Centrum Men] omeprazole 20 mg PO DAILY 02/05/18 02/05/18 History Allergies Allergy/AdvReac Type Severity Reaction Status Date / Time itraconazole [From SPORANOX] Allergy Intermediate HIVES Verified 02/05/18 19:28 griseofulvin [GRISEOFULVIN] Allergy Unknown Verified 02/05/18 19:28 Review of Systems Review of Systems ROS Unobtainable: All systems reviewed & are unremarkable except as noted in HPI and below Exam Vital Signs (past 8 hours): - 03/02/19 16:24 03/02/19 16:30 03/02/19 16:45 Temperature 97.6 F Pulse Rate 60 58 L 56 L Respiratory Rate 8 L 22 24 Blood Pressure 162/59 H Blood Pressure [Right Arm] 184/63 H 188/60 H Pulse Oximetry 89 L 92 92 03/02/19 17:00 03/02/19 17:03 03/02/19 17:10 Temperature Pulse Rate 59 L 68 59 L Respiratory Rate 17 18 14 Blood Pressure Blood Pressure [Right Arm] 186/54 H 194/52 H Pulse Oximetry 92 92 92 03/02/19 17:30 03/02/19 17:45 03/02/19 18:00 Temperature Pulse Rate 65 60 66 Respiratory Rate 19 17 18 Blood Pressure Blood Pressure [Right Arm] 185/59 H 193/59 H 202/62 H Pulse Oximetry 91 91 90 L 03/02/19 18:30 03/02/19 18:45 03/02/19 19:08 Temperature Pulse Rate 66 66 66 Respiratory Rate 17 18 17 Blood Pressure Blood Pressure [Right Arm] 197/62 H 203/63 H Pulse Oximetry 90 L 91 90 L Oxygen Delivery Method Nasal Cannula Oxygen Flow Rate 3 Narrative Exam Narrative: Gen: Alert, oriented, ill-appearing 73 y.o. male, wearing HEENT: normocephalic, atraumatic, conjunctiva clear, sclera non-icteric, oral mucosa pink and moist Neck: supple, full ROM Resp: Lungs CTA, using an oxy mask CV: RRR, no murmur or rubs, CHADS VASC score 7 Abd: soft, non-tender, normoactive BTs Skin: no lesions or rashes, dry and intact Neuro: Alert and oriented X 4 w/no focal deficits Extremities: moves all 4 extremities, is ambulatory, negative Ryanne?s sign, +1 non-pitting edema of the lower extremities Psyche: pleasant, normal mood and affect. Objective Labs Result Diagrams: 03/02/19 16:26 03/02/19 16:26 Labs: Laboratory Results - last 24 hr 03/02/19 03/02/19 03/02/19 16:26 16:26 16:26 WBC 10.1 RBC 3.94 L Hgb 11.1 L Hct 33.6 L MCV 85.3 MCH 28.2 MCHC 33.1 RDW 17.2 H Plt Count 334 Neut % (Auto) 69.7 Lymph % (Auto) 17.1 L [place] % (Auto) 8.2 Eos % (Auto) 3.6 Baso % (Auto) 1.4 Neut # (Auto) 7000 Lymph # (Auto) 1700 [place] # (Auto) 800 Eos # (Auto) 400 Baso # (Auto) 100 PT 12.7 INR 1.1 APTT 36 Sodium 136 L Potassium 4.4 Chloride 105 Carbon Dioxide 22 BUN 33 H Creatinine 1.80 H Estimated GFR 37.0 L BUN/Creatinine Ratio 18.3 Glucose 242 H Lactate Calcium 9.0 Magnesium 2.0 Total Bilirubin 0.7 AST 19 ALT 13 Alkaline Phosphatase 126 Total Creatine Kinase 109 CK-MB (CK-2) 2.36 CK-MB (CK-2) Rel Index 2.2 Troponin I 0.026 B-Natriuretic Peptide 1330 H Total Protein 6.5 Albumin 3.7 Globulin 2.8 Albumin/Globulin Ratio 1.3 Lipase 22 L 03/02/19 03/02/19 16:26 18:57 WBC RBC Hgb Hct MCV MCH MCHC RDW Plt Count Neut % (Auto) Lymph % (Auto) [place] % (Auto) Eos % (Auto) Baso % (Auto) Neut # (Auto) Lymph # (Auto) [place] # (Auto) Eos # (Auto) Baso # (Auto) PT INR APTT Sodium Potassium Chloride Carbon Dioxide BUN Creatinine Estimated GFR BUN/Creatinine Ratio Glucose Lactate 2.3 H 1.0 Calcium Magnesium Total Bilirubin AST ALT Alkaline Phosphatase Total Creatine Kinase CK-MB (CK-2) CK-MB (CK-2) Rel Index Troponin I B-Natriuretic Peptide Total Protein Albumin Globulin Albumin/Globulin Ratio Lipase Assessment & Plan Assessment & Plan narrative: Mauro Rebman will be admitted for further workup and managment of a new CHF exacerbation, hypoxia, and an acute kidney injury. 1. CHF exacerbation, acute, present on admission * CHADS VASC score of 7 * Elevated troponin of 0.26, trend over night * Echo in the am * Telemetry overnight * BMP 1330, repeat in the am and administer lasix as needed per clinical presentation * He will need to have outpatient follow-up with cardiology * Strict Is and Os, 1500 cc fluid restriction 2. Hypoxia, acute, present on admission * Patient is currently with an oxygen saturation of 88% on 4 liters of O2 * I have requested RT examine, draw an ABG and consider bipap if retaining * Albuterol/duonebs q 2 hours prn 2. Acute kidney injury with a creatinine of 1.80, acute, present on admission * Baseline is normal * Suspect bladder retention w/possible hydronephrosis * Renal US ordered * Avoid nephrotoxic medications and substances * Lisinopril is being held 3. Urinary retention, appears to be chronic, POA * Patient has a pending referral to Urology * See #2 4. Diabetes type 2, chronic and uncontrolled with a new A1c of 7.8, POA * Continue home dose of Lantus 40 units at bedtime * Low dose insulin correctional scale * Oral antidiabetics are being held 5. Accelerated hypertension, acute, uncontrolled, POA * Patient's systolics were in the 200s in the ED, now 140/90 and will resume amlodipine in the am. 6. PAD, chronic and stable, POA * Continue home dose of clopidogrel 75 mg po daily and asa 81 mg po daily 7. Depression, chronic and stable * Continue home dose of duloxetine 20 mg po daily Patient is admitted inpatient as his stay is anticipated to exceed 2 midnights. FEN: Saline lock, carb control diet with a 1500 cc fluid restriction, chemistries in the am. VTE Prophylaxis: heparin 5000 units subQ bid Disposition: Unknown at this time Code status: Full Code Admission time: 75 minutes Meds reconciled: Yes Scores CHADS-VASc Congestive heart failure: yes Hypertension: yes Age 75 years or older: yes Diabetes mellitus: yes Stroke, TIA, or TE: no Vascular disease: yes Age 65 to 74 years: no Sex category (female): Male CHADS-VASc Score: 6
[2019-03-02 20:52] LABS: Phosphorous 3.9 mg/dL (2.3-3.7)
[2019-03-02 20:53] LABS: Hemoglobin A1C% w Est Avg Glu 7.8 % (4.0-6.0)
[2019-03-02 21:31] LABS: Thyroid Stimulating Hormone 3.19 uIU/mL (0.47-4.68)
[2019-03-02] MEDS: INSULIN ASPART 100 UNIT/ML INSULN PEN SUBCUT (22:03)
[2019-03-02] MEDS: INSULIN GLARGINE 100 UNIT/ML 3ML PEN 40 UNIT SUBCUT (22:04)
[2019-03-02] MEDS: HEPARIN 5,000 UNIT/ML VIAL 5000 UNIT SUBCUT (22:05)
[2019-03-02 22:19] LABS: Fractionated Inspired Oxygen 0.36; HCO3 ABG 20 mmol/L (22-26); Oxygen Saturation ABG 91 % (95-100); PCO2 ABG 33.1 mmHg (35-45); PO2 ABG 61 mmHg (80-100); TCO2 ABG 21 mmol/L (21-31)
[2019-03-02 23:48] LABS: Bacteria Urine None Seen; RBC Urine None Seen (0-5/HPF)
[2019-03-02 23:50] LABS: Appearance Urine UA CLEAR; Bilirubin Urine UA NEGATIVE (NEGATIVE); Color Urine UA YELLOW; Glucose Urine UA 2+ g/dL (Negative); Ketones Urine UA NEGATIVE (NEGATIVE); Leukocyte Esterase Urine UA NEGATIVE (NEGATIVE); Nitrite Urine UA NEGATIVE (Negative); Occult Blood Urine UA TRACE-LYSED (Negative); Protein Urine UA 2+ (Negative); Urobilinogen Urine UA 0.2 E.U./dL (0.2)
[2019-03-03] VITALS (16 sets, daily range): BP systolic 105–194; BP diastolic 53–87; PULSE 62–80; RESP 16–22; TEMP 36.6–37.1; O2SAT 90–94
--- NOTE | 2019-03-03 00:04 | PC.NURSE ---
Admit note: Mauro brought from ER to rm 217, awake, Ox3 and situation. SOB with activity, denies chest pain. 4L O2 sat 93-94% Told me he feels a lot better than before. RT in to draw stat ABG. VS stable, somewhat hypertensive. CBG 228, when going to administer Lantus 40 units, which was ordered & listed same on home medication reconciliation, patient said I never have taken that much--I only take 10 units of lantus. Stated Lantus was all I take--I don't even take Metformin anymore. I then administered Lantus 10 units. He refused Cymbalta, saying I don't take that anymore--I can't remember the last time I took that. Full report given to Inna WALDROP RN, she is aware that pt's daughter needs to bring in his home medication list in the AM so it can be corrected in our system, and the meds re-ordered accordingly.
[2019-03-03 00:19] LABS: Culture Indicated Urine Cult Not Indicated; Squamous Epithelial Cell Urine 0-1 /HPF (0-5/HPF); WBC Urine 0-1/HPF (0-5/HPF)
[2019-03-03 00:56] LABS: Troponin I 0.014 ng/mL (0.01-0.034)
[2019-03-03] MEDS: ALBUTEROL 1.25 MG/3 ML NEB (PEDIATRIC) INH ×3 (02:57→23:17)
[2019-03-03 05:28] LABS: Add Manual Diff / Slide Review NO; Albumin 3.4 g/dL (3.5-5.0); BUN Creatinine Ratio 18.4 (6-22); Basophils Absolute Auto 0 /uL (0-100); Basophils Percent Auto 0.3 % (0-2); Blood Urea Nitrogen 35 mg/dL (9-20); Carbon Dioxide 21 mmol/L (22-32); Chloride 103 mmol/L (98-107); Eosinophils Absolute Auto 0 /uL (0-450); Estimated Glomerular Filt Rate 34.7 mL/min (>60); Glucose 313 mg/dL (80-110); HEMOLYSIS < 15 (0-50); Hematocrit 35.7 % (41-53); Hemoglobin 11.7 g/dL (13.5-17.5); Lymphocytes Absolute Auto 300 /uL (1100-4500); Lymphocytes Percent Auto 7.2 % (25-40); Mean Corpuscular HGB Conc 32.9 % (30-36); Mean Corpuscular Hemoglobin 28.1 PG (26-34); Mean Corpuscular Volume 85.5 fL (80-100); Monocytes Absolute Auto 0 /uL (0-900); Monocytes Percent Auto 0.8 % (3-14); Neutrophils Absolute Auto 3900 /uL (1500-7000); Neutrophils Percent Auto 91.7 % (50-75); Phosphorous 5.7 mg/dL (2.3-3.7); Platelet Count 304 X10^3/uL (150-400); Potassium 4.8 mmol/L (3.4-5.1); Red Blood Cell Count 4.18 X10^6/uL (4.5-5.9); Red Cell Distribution Width 16.9 % (11.6-14.8); Sodium 135 mmol/L (137-145); White Blood Cell Count 4.2 X10^3/uL (4.5-11.0)
[2019-03-03 05:46] LABS: B Type Natriuretic Peptide 1390 (<100)
--- NOTE | 2019-03-03 06:39 | PC.NURSE ---
Patient denies nausea, has had Bipap on all night and tolerating well. Patient has fluid restriction 1500cc. Lung sounds clear bilaterally, VSS, pt is hypertensive 164/70. Patient is on Tele:NS.
[2019-03-03] MEDS: ALBUTEROL/IPRATROPIUM 3 ML AMPUL INH ×4 (07:34→18:12)
--- NOTE | 2019-03-03 08:28 | DI.US.S_ITS ---
PROCEDURE: US RENAL COMPLETE INDICATIONS: RETENTION TECHNIQUE: Real-time scanning was performed of the kidneys and bladder, with image documentation. COMPARISON: None. FINDINGS: Kidneys: Kidneys are normal in size. Right kidney measures 11.5 cm long; left kidney measures 12.1 cm long. Right renal cortical thickness is 1.4 cm; left renal cortical thickness is 1.1 cm. Renal cortical echotexture is normal. No hydronephrosis or nephrolithiasis. No suspicious solid mass lesions. There is cysts in the lower third cortex of the left kidney, measuring up to 2.8 cm in maximal dimension Bladder: Pre-void bladder volume is 255 mL. Post-void residual is 86 mL. Pre-void images demonstrate no intraluminal masses or stones. On pre-void images, neither ureteral jets are noted with color Doppler interrogation. (Of note, ureteral jets may not be detectable in up to 25% of cases due to insufficient differences in specific gravity between ureteral and bladder urine). Miscellaneous: No free pelvic fluid. IMPRESSION: Scattered lower pole left renal cortical cysts, maximum size approximately 2.8 cm. No hydronephrosis or nephrolithiasis foun, normal bladder function. Dictated by: Ricco Buenrostro M.D. on 03/03/2019 at 9:17 Approved by: Ricco Buenrostro M.D. on 03/03/2019 at 9:18
[2019-03-03] MEDS: ASPIRIN EC 81 MG TABLET PO (08:44)
[2019-03-03] MEDS: AMLODIPINE 5 MG TABLET 10 MG PO (08:44)
[2019-03-03] MEDS: CLOPIDOGREL 75 MG TABLET PO (08:44)
[2019-03-03] MEDS: METOPROLOL ER 50 MG TABLET PO (08:44)
[2019-03-03] MEDS: HEPARIN 5,000 UNIT/ML VIAL 5000 UNIT SUBCUT ×2 (08:45→20:37)
--- NOTE | 2019-03-03 08:49 | CM.DANOTE ---
DCP: Case received, EMR reviewed and met with patient. Introduced self and role. Was able to meet with patient in his room to obtain baseline health and activity information. DCP assessment completed with information currently available. Patient is a 73 year old male who admitted yesterday afternoon to the care of the hospitalist team. PCP: Dr. Logan/[place] provider in [facility] Patient came to the hospital via family vehicle secondary to increased shortness of breath. He has history of Diabetes type 2, and is a current smoker planning on quitting. Patient holds diagnosis of Pulmonary Edema secondary to CHF/Hypoxia. Confirmed with patient that he does not have home oxygen. Met with patient in his room. He is alert and oriented. He resides in [place], but his son, Oswaldo, lives near . His daughter is here visiting, and staying with him, for he had recent back surgery at the [facility] in the [place] area. He is independent, is driving. Asked patient if his provider is Dr. Logan, and he mentioned that he now has a new [place] daughter, he goes to the clinic in [facility], but could not remember his name. P: DCP to continue to follow closely. He will be working with respiratory therapy as well, for he is now on oxygen. Patient should be able to go home when he is medically stable. Trudy Arias RN/Soldering Technician
[2019-03-03] MEDS: INSULIN ASPART 100 UNIT/ML INSULN PEN SUBCUT ×4 (08:52→20:40)
[2019-03-03] MEDS: FUROSEMIDE 20 MG TABLET PO (09:54)
[2019-03-03] MEDS: NIFEdipine 30 MG TAB ER 60 MG PO (13:15)
--- NOTE | 2019-03-03 13:31 | DI.RAD.S_ITS ---
PROCEDURE: XR CHEST 1V INDICATIONS: assess pleural effusion and volume status after diuresis TECHNIQUE: One view of the chest was acquired. COMPARISON: [facility], CR, XR CHEST 1V, 03/02/2019, 16:37. FINDINGS: Surgical changes and devices: None. Lungs and pleura: Patchy opacities in the lung bases diminished. Small bilateral pleural fluid collections are stable. Mediastinum: Mediastinal contours appear normal. Heart size is normal. Bones and chest wall: No suspicious bony lesions. Overlying soft tissues appear unremarkable. IMPRESSION: 1. Patchy bibasilar opacities and interstitial prominence most completely resolved compatible with resolving pulmonary edema. 2. Small bilateral pleural fluid collections stable compared to 03/02/19. Dictated by: Sharon Montelongo MD, PhD on 03/03/2019 at 14:13 Approved by: Sharon Montelongo MD, PhD on 03/03/2019 at 14:18
--- NOTE | 2019-03-03 15:09 | PM.PN.1 ---
Subjective Subjective Date Patient Seen: 03/03/19 Time Patient Seen: 15:10 Interval history: Mr. Espino is a 73 year old male with PMH of DM, hypertension, COPD, PAD, and BPH who presented with dyspnea on exertion over the past 4 days. He underwent a CTA which was negative for PE, but did show bilateral pleural effusions. Given an elevated BNP of 1300 it was thought that this was secondary to volume overload. His echocardiogram today revealed a normal ejection fraction in and no evidence of diastolic dysfunction but did show concentric left ventricular hypertrophy. Repeat chest imaging showed improvement in bilateral hazy opacities but still with bilateral pleural effusions. He is still requiring supplemental oxygen this afternoon. He denies chest pain, but does endorse recent orthopnea but no lower extremity edema. Renal ultrasound did not show any hydronephrosis inpatient adequately voided. He was recently started on terazosin for BPH. His medications were brought in today for reconciliation. He reports his blood pressure has been uncontrolled at home. He denies any symptoms of headache or blurry vision at this time. Exam Vital Signs (past 8 hours): - 03/03/19 07:30 03/03/19 07:39 03/03/19 08:44 Temperature 97.8 F Pulse Rate 62 69 77 Respiratory Rate 20 20 Blood Pressure 175/73 H 175/73 H Pulse Oximetry 93 94 03/03/19 11:41 03/03/19 11:51 Temperature 98.3 F Pulse Rate 77 72 Respiratory Rate 20 20 Blood Pressure 194/87 H Pulse Oximetry 93 94 Oxygen Delivery Method Nasal Cannula Oxygen Flow Rate 3 Narrative Exam Narrative: GENERAL APPEARANCE: Thin appearing male in no acute distress. SKIN: Inspection of the skin reveals no rashes, ulcerations or petechiae. HEENT: The sclerae were anicteric and conjunctivae were pink and moist. Extraocular movements were intact and pupils were equal, round with normal accommodation. External inspection of the ears and nose showed no scars, lesions, or masses. Lips, teeth, and gums showed normal mucosa. The oral mucosa, hard and soft palate, tongue and posterior pharynx were unremarkable. NECK: Supple and symmetric. There was no thyroid enlargement, and no tenderness, or masses were felt. CHEST: Normal AP diameter and normal contour without any kyphoscoliosis. LUNGS: Auscultation of the lungs revealed diminished breath sounds at the lung bases and expiratory wheezes this morning improved with nebulizer therapy. CARDIOVASCULAR: There was a regular rate and rhythm without any murmurs, gallops, rubs. Peripheral pulses were 2+ and symmetric. ABDOMEN: Soft and nontender with normal bowel sounds. No ascites was noted. MUSCULOSKELETAL: There was no tenderness or effusions noted. Muscle strength and tone were normal. EXTREMITIES: No cyanosis, clubbing or edema. NEUROLOGIC: Alert and oriented x 3. Normal affect. Strength is +5/5 in the Upper Extremities and Lower Extremities Bilaterally. Objective Labs Result Diagrams: 03/03/19 04:55 03/03/19 04:55 Labs: Laboratory Results - last 24 hr 03/02/19 03/02/19 03/02/19 16:26 16:26 16:26 WBC 10.1 RBC 3.94 L Hgb 11.1 L Hct 33.6 L MCV 85.3 MCH 28.2 MCHC 33.1 RDW 17.2 H Plt Count 334 Neut % (Auto) 69.7 Lymph % (Auto) 17.1 L [place] % (Auto) 8.2 Eos % (Auto) 3.6 Baso % (Auto) 1.4 Neut # (Auto) 7000 Lymph # (Auto) 1700 [place] # (Auto) 800 Eos # (Auto) 400 Baso # (Auto) 100 PT 12.7 INR 1.1 APTT 36 ABG pH ABG pCO2 ABG pO2 ABG HCO3 ABG Total CO2 ABG O2 Saturation ABG Base Excess FiO2 Sodium 136 L Potassium 4.4 Chloride 105 Carbon Dioxide 22 BUN 33 H Creatinine 1.80 H Estimated GFR 37.0 L BUN/Creatinine Ratio 18.3 Glucose 242 H Hemoglobin A1c Lactate Calcium 9.0 Phosphorus Magnesium 2.0 Total Bilirubin 0.7 AST 19 ALT 13 Alkaline Phosphatase 126 Total Creatine Kinase 109 CK-MB (CK-2) 2.36 CK-MB (CK-2) Rel Index 2.2 Troponin I 0.026 B-Natriuretic Peptide 1330 H Total Protein 6.5 Albumin 3.7 Globulin 2.8 Albumin/Globulin Ratio 1.3 Lipase 22 L TSH Urine Color Urine Appearance Urine pH Ur Specific [place] Urine Protein Urine Glucose (UA) Urine Ketones Urine Occult Blood Urine Nitrate Urine Bilirubin Urine Urobilinogen Ur Leukocyte Esterase Urine RBC Urine WBC Ur Squamous Epith Cells Urine Bacteria Ur Culture Indicated? 03/02/19 03/02/19 03/02/19 16:26 18:57 20:35 WBC RBC Hgb Hct MCV MCH MCHC RDW Plt Count Neut % (Auto) Lymph % (Auto) [place] % (Auto) Eos % (Auto) Baso % (Auto) Neut # (Auto) Lymph # (Auto) [place] # (Auto) Eos # (Auto) Baso # (Auto) PT INR APTT ABG pH ABG pCO2 ABG pO2 ABG HCO3 ABG Total CO2 ABG O2 Saturation ABG Base Excess FiO2 Sodium Potassium Chloride Carbon Dioxide BUN Creatinine Estimated GFR BUN/Creatinine Ratio Glucose Hemoglobin A1c Lactate 2.3 H 1.0 Calcium Phosphorus 3.9 H Magnesium Total Bilirubin AST ALT Alkaline Phosphatase Total Creatine Kinase CK-MB (CK-2) CK-MB (CK-2) Rel Index Troponin I B-Natriuretic Peptide Total Protein Albumin Globulin Albumin/Globulin Ratio Lipase TSH Urine Color Urine Appearance Urine pH Ur Specific [place] Urine Protein Urine Glucose (UA) Urine Ketones Urine Occult Blood Urine Nitrate Urine Bilirubin Urine Urobilinogen Ur Leukocyte Esterase Urine RBC Urine WBC Ur Squamous Epith Cells Urine Bacteria Ur Culture Indicated? 03/02/19 03/02/19 03/02/19 20:35 20:35 22:00 WBC RBC Hgb Hct MCV MCH MCHC RDW Plt Count Neut % (Auto) Lymph % (Auto) [place] % (Auto) Eos % (Auto) Baso % (Auto) Neut # (Auto) Lymph # (Auto) [place] # (Auto) Eos # (Auto) Baso # (Auto) PT INR APTT ABG pH 7.40 ABG pCO2 33.1 L ABG pO2 61 L ABG HCO3 20 L ABG Total CO2 21 ABG O2 Saturation 91 L ABG Base Excess -4.0 L FiO2 0.36 Sodium Potassium Chloride Carbon Dioxide BUN Creatinine Estimated GFR BUN/Creatinine Ratio Glucose Hemoglobin A1c 7.8 H Lactate Calcium Phosphorus Magnesium Total Bilirubin AST ALT Alkaline Phosphatase Total Creatine Kinase CK-MB (CK-2) CK-MB (CK-2) Rel Index Troponin I B-Natriuretic Peptide Total Protein Albumin Globulin Albumin/Globulin Ratio Lipase TSH 3.19 Urine Color Urine Appearance Urine pH Ur Specific [place] Urine Protein Urine Glucose (UA) Urine Ketones Urine Occult Blood Urine Nitrate Urine Bilirubin Urine Urobilinogen Ur Leukocyte Esterase Urine RBC Urine WBC Ur Squamous Epith Cells Urine Bacteria Ur Culture Indicated? 03/02/19 03/03/19 03/03/19 23:30 00:10 04:55 WBC 4.2 L D RBC 4.18 L Hgb 11.7 L Hct 35.7 L MCV 85.5 MCH 28.1 MCHC 32.9 RDW 16.9 H Plt Count 304 Neut % (Auto) 91.7 H D Lymph % (Auto) 7.2 L [place] % (Auto) 0.8 L Eos % (Auto) 0.0 L Baso % (Auto) 0.3 Neut # (Auto) 3900 Lymph # (Auto) 300 L [place] # (Auto) 0 Eos # (Auto) 0 Baso # (Auto) 0 PT INR APTT ABG pH ABG pCO2 ABG pO2 ABG HCO3 ABG Total CO2 ABG O2 Saturation ABG Base Excess FiO2 Sodium Potassium Chloride Carbon Dioxide BUN Creatinine Estimated GFR BUN/Creatinine Ratio Glucose Hemoglobin A1c Lactate Calcium Phosphorus Magnesium Total Bilirubin AST ALT Alkaline Phosphatase Total Creatine Kinase CK-MB (CK-2) CK-MB (CK-2) Rel Index Troponin I 0.014 B-Natriuretic Peptide 1390 H Total Protein Albumin Globulin Albumin/Globulin Ratio Lipase TSH Urine Color Yellow Urine Appearance Clear Urine pH 5.0 Ur Specific [place] 1.010 Urine Protein 2+ H Urine Glucose (UA) 2+ H Urine Ketones Negative Urine Occult Blood Trace-lysed Urine Nitrate Negative Urine Bilirubin Negative Urine Urobilinogen 0.2 Ur Leukocyte Esterase Negative Urine RBC None seen Urine WBC 0-1/hpf Ur Squamous Epith Cells 0-1 /hpf Urine Bacteria None seen Ur Culture Indicated? Cult not indicated 03/03/19 04:55 WBC RBC Hgb Hct MCV MCH MCHC RDW Plt Count Neut % (Auto) Lymph % (Auto) [place] % (Auto) Eos % (Auto) Baso % (Auto) Neut # (Auto) Lymph # (Auto) [place] # (Auto) Eos # (Auto) Baso # (Auto) PT INR APTT ABG pH ABG pCO2 ABG pO2 ABG HCO3 ABG Total CO2 ABG O2 Saturation ABG Base Excess FiO2 Sodium 135 L Potassium 4.8 Chloride 103 Carbon Dioxide 21 L BUN 35 H Creatinine 1.90 H Estimated GFR 34.7 L BUN/Creatinine Ratio 18.4 Glucose 313 H Hemoglobin A1c Lactate Calcium 9.0 Phosphorus 5.7 H D Magnesium Total Bilirubin AST ALT Alkaline Phosphatase Total Creatine Kinase CK-MB (CK-2) CK-MB (CK-2) Rel Index Troponin I B-Natriuretic Peptide Total Protein Albumin 3.4 L Globulin Albumin/Globulin Ratio Lipase TSH Urine Color Urine Appearance Urine pH Ur Specific [place] Urine Protein Urine Glucose (UA) Urine Ketones Urine Occult Blood Urine Nitrate Urine Bilirubin Urine Urobilinogen Ur Leukocyte Esterase Urine RBC Urine WBC Ur Squamous Epith Cells Urine Bacteria Ur Culture Indicated? Assessment & Plan Assessment & Plan narrative: Mr. Espino is a 73 year old male with PMH of DM, hypertension, COPD, PAD, and BPH who presented with dyspnea on exertion over the past 4 days who was admitted for acute hypoxemic respiratory failure likely secondary to bilateral pleural effusions. He remains on supplemental oxygen at this time. 1. Acute hypoxemic respiratory failure, present on admission -likely secondary to new bilateral pleural effusions. The etiology is unclear of these bilateral pleural effusions and is discussed below. Fruther Differential of his respiratory failure includes COPD or possibly diastolic heart failure given echocardiogram findings. Elevated troponin of 0.026 which down trended. Echo cardiogram showing concentric left ventricular hypertrophy with normal ejection fraction. Telemetry BMP 1330, and chest x-ray today does show improvement and bilateral hazy opacities. However he has no lower extremity edema, no JVD or hepato-jugular reflex and his symptoms have not improved much with Lasix. He was transition to p.o. Lasix today mainly for elevated blood pressure as he does not appear volume overloaded at this time. Strict Is and Os, 1500 cc fluid restriction Continue duo nebs Respiratory therapy eval and treat, appreciate recommendations Continue albuterol as needed 2. Bilateral pleural effusions, present on admission -initially these were thought to be secondary to volume overload in setting of CHF however his echocardiogram does not mention diastolic dysfunction and he has a normal ejection fraction. His imaging has improved with Lasix however he is still requiring supplemental oxygen. He clinically appears euvolemic on exam. Differential for the effusion still includes diastolic heart failure, but further malignancy especially given his smoking history, and parapneumonic effusions however this is felt to be unlikely given lack of fever or productive cough and bilateral appearance. -continue to diurese slightly with p.o. Lasix -should patient still require supplemental oxygen he should have a thoracentesis on Friday to help determine the etiology of this fluid and assist with his hypoxemic respiratory failure. Otherwise if off of oxygen tomorrow he could be discharged home with outpatient follow up for this procedure. 3. Acute kidney injury with a creatinine of 1.80, acute, present on admission -possibly secondary to fluid overload however echocardiogram was unremarkable as noted above. Renal ultrasound did not show evidence of hydronephrosis and patient was voiding adequately. Slightly elevated today at 1.9. Previous normal lab value was from approximately 1 year ago. Given chronically elevated blood pressure this may be more chronic in nature. Renal US as noted above Avoid nephrotoxic medications and substances Will resume lisinopril tomorrow given elevated blood pressures 3. BPH, appears to be chronic, POA Patient has a pending referral to Urology Continue home terazosin 4. Diabetes type 2, chronic and uncontrolled with a new A1c of 7.8, POA Continue home dose of Lantus 40 units at bedtime Low dose insulin correctional scale Adding mealtime coverage today Oral antidiabetics are being held 5. Accelerated hypertension, acute, uncontrolled, POA Patient's systolics were in the 200s in the ED, now 140/90. Blood pressures remained elevated and amlodipine was changed to nifedipine today. Lisinopril was held but will resume tomorrow. Patient to continue home metoprolol. Lasix has also been added as noted above. 6. PAD, chronic and stable, POA Continue home dose of clopidogrel 75 mg po daily and asa 81 mg po daily 7. Depression, chronic and stable Continue home dose of duloxetine 20 mg po daily Code: Full Dispo: Remains inpatient DVT: Lovenox daily Quality VTE Deep Vein Thrombosis/Pulmonary Embolism Present on Admission: No
[2019-03-03] MEDS: LISINOPRIL 20 MG TABLET 40 MG PO (15:54)
[2019-03-03] MEDS: NICOTINE 14 PATCH 14 MG TOP (15:54)
[2019-03-03] MEDS: INSULIN ASPART 100 UNIT/ML INSULN PEN 6 UNIT SUBCUT (17:10)
[2019-03-03] MEDS: DULOXETINE 20 MG CAPSULE PO (20:37)
[2019-03-03] MEDS: TERAZOSIN 1 MG CAPSULE PO (20:37)
[2019-03-03] MEDS: ATORVASTATIN 20 MG TABLET 40 MG PO (20:37)
[2019-03-03] MEDS: INSULIN GLARGINE 100 UNIT/ML 3ML PEN 40 UNIT SUBCUT (20:39)
--- NOTE | 2019-03-03 23:53 | PC.NURSE ---
Addendum entered by Dorene Headley R.N. 03/04/19 05:39: Weight today is 80.5kg which is down 3.4kg from admission (not weighed yesterday) 2 days ago. Dany PROCTOR, informed. Addendum entered by Dorene Headley R.N. 03/04/19 02:56: Patient again with desats to 83% so oxygen has now been increased to 10L and will go up to 87% but then drops down again. Dany PROCTOR, informed and order received to repeat EKG and to do an ABG. RT notified. Addendum entered by Dorene Headley R.N. 03/04/19 01:41: Reported by Sharifa Cali: RT was in patient room and called RN as patient's color was ashen and he was complaining of left arm feeling weird. VS stable although was on oxygen at 7L/min with sat of 91%. When this RN arrived in room, patient's color no longer ashen and patient states left arm feels twitchy but denies pain or numbness. EKG had been ordered and RT in room doing that. Lab also here to draw ordered troponin. O2 sat is currently 93% so RT decreased oxygen to 5L/min. Dany PROCTOR, was informed of patient's condition by DAVIDA Skaggs. Addendum entered by Dorene Headley R.N. 03/04/19 00:51: Patient also complained of nausea so was medicated with Zofran. CBG checked and was 281. Addendum entered by Dorene Headley R.N. 03/04/19 00:29: Patient's oximeter alarming with sat of 84% intermittently. Increased oxygen to 4L/min via CPAP/bipap and O2 sat now 86-87% so RT contacted and will come to assess patient. Original Note: Patient is alert and oriented. Breath sounds coarse and diminished, left more than right; also has expiratory rhonchi in right upper lobe. Is coughing up yellow/cream colored frothy sputum. Denies SOB at rest/with activity. Oxygen at 3L/min per NC with sat of 88-89%; placed on CPAP for the night and is on continuous oximetry. HRR; on telemetry and has been in SR. Denies nausea. BT hypoactive but is passing flatus and had BM yesterday. Voiding per urinal; denies dysuria, frequency or urgency. Able to move self in bed. Out of bed with cane and 1 assist; denies weakness but is slow with movement. Reports falling several times in past 3 months so fall risk score is high and bed alarm is activated. Denies pain. Continues on fluid restriction.
[2019-03-04] VITALS (21 sets, daily range): BP systolic 143–164; BP diastolic 56–88; PULSE 62–74; RESP 16–20; TEMP 36.5–37.1; O2SAT 3–95
[2019-03-04] MEDS: SODIUM CHLORIDE 0.9% FLUSH 10 ML IV ×4 (00:24→23:31)
[2019-03-04] MEDS: ONDANSETRON 4 MG/2 ML INJ IV ×3 (00:24→23:30)
[2019-03-04 02:07] LABS: Troponin I 0.036 ng/mL (0.01-0.034)
[2019-03-04 03:28] LABS: HCO3 ABG 21 mmol/L (22-26); Oxygen Saturation ABG 86 % (95-100); PCO2 ABG 29.4 mmHg (35-45); PO2 ABG 47 mmHg (80-100); TCO2 ABG 21 mmol/L (21-31); pH ABG 7.45 (7.35-7.45)
[2019-03-04 03:30] LABS: Fractionated Inspired Oxygen 40
[2019-03-04] MEDS: ALBUTEROL/IPRATROPIUM 3 ML AMPUL INH ×4 (07:36→18:19)
--- NOTE | 2019-03-04 07:47 | DI.RAD.S_ITS ---
PROCEDURE: XR CHEST 1V INDICATIONS: increasing O2 requirements, known effusion TECHNIQUE: One view of the chest was acquired. COMPARISON: [facility], CT, CT ANGIO CHEST PE PROTOCOL, 03/02/2019, 17:22. [facility], CR, XR CHEST 1V, 03/02/2019, 16:37. [facility], CR, XR CHEST 1V, 02/05/2018, 20:13. [facility], CR, XR CHEST 1V, 03/03/2019, 13:34. FINDINGS: Surgical changes and devices: None. Lungs and pleura: There is a streak of linear opacity seen involving the right lower lung. Blunting of the costophrenic angles is seen. No large pneumothorax is seen on this semiupright examination. Mediastinum: The cardiac contours are within normal limits. The aorta demonstrates calcification and tortuosity. Bones and chest wall: Age-appropriate bony degenerative changes are seen. No suspicious bony lesions. Overlying soft tissues appear unremarkable. IMPRESSION: Small bilateral pleural effusions with likely atelectasis. Differential diagnosis includes mild/early infiltrate. The pleural effusions are much better seen on the prior CT study. Dictated by: Daren Jang M.D. on 03/04/2019 at 8:28 Approved by: Daren Jang M.D. on 03/04/2019 at 8:30
[2019-03-04 08:07] LABS: Troponin I 0.026 ng/mL (0.01-0.034)
[2019-03-04 08:28] LABS: Add Manual Diff / Slide Review NO; Basophils Absolute Auto 100 /uL (0-100); Basophils Percent Auto 0.6 % (0-2); Eosinophils Absolute Auto 0 /uL (0-450); Eosinophils Percent Auto 0.2 % (2-4); Hematocrit 28.6 % (41-53); Hemoglobin 9.5 g/dL (13.5-17.5); Lymphocytes Absolute Auto 1500 /uL (1100-4500); Lymphocytes Percent Auto 16.4 % (25-40); Mean Corpuscular HGB Conc 33.3 % (30-36); Mean Corpuscular Hemoglobin 28.4 PG (26-34); Mean Corpuscular Volume 85.2 fL (80-100); Monocytes Absolute Auto 800 /uL (0-900); Monocytes Percent Auto 8.5 % (3-14); Neutrophils Absolute Auto 6900 /uL (1500-7000); Neutrophils Percent Auto 74.3 % (50-75); Platelet Count 234 X10^3/uL (150-400); Red Blood Cell Count 3.36 X10^6/uL (4.5-5.9); Red Cell Distribution Width 16.9 % (11.6-14.8); White Blood Cell Count 9.3 X10^3/uL (4.5-11.0)
[2019-03-04 08:31] LABS: Alanine Aminotransferase 10 IU/L (<50); Albumin Globulin Ratio 1.3 (1.0-2.8); Alkaline Phosphatase 96 U/L (38-126); Aspartate Aminotransferase 17 IU/L (17-59); BUN Creatinine Ratio 20.4 (6-22); Bilirubin Total 0.6 mg/dL (0.2-1.3); Blood Urea Nitrogen 51 mg/dL (9-20); Calcium 8.8 mg/dL (8.4-10.2); Carbon Dioxide 25 mmol/L (22-32); Chloride 105 mmol/L (98-107); Estimated Glomerular Filt Rate 25.3 mL/min (>60); Globulin 2.3 g/dL (1.7-4.1); Glucose 239 mg/dL (80-110); HEMOLYSIS < 15 (0-50); Potassium 4.7 mmol/L (3.4-5.1); Sodium 138 mmol/L (137-145); Total Protein 5.3 g/dL (6.3-8.2)
[2019-03-04] MEDS: METOPROLOL ER 50 MG TABLET PO (08:58)
[2019-03-04] MEDS: HEPARIN 5,000 UNIT/ML VIAL 5000 UNIT SUBCUT ×2 (08:58→20:21)
[2019-03-04] MEDS: FUROSEMIDE 20 MG TABLET PO (08:59)
[2019-03-04] MEDS: ASPIRIN EC 81 MG TABLET PO (08:59)
[2019-03-04] MEDS: CLOPIDOGREL 75 MG TABLET PO (08:59)
[2019-03-04] MEDS: INSULIN ASPART 100 UNIT/ML INSULN PEN 6 UNIT SUBCUT ×3 (08:59→16:59)
[2019-03-04] MEDS: INSULIN ASPART 100 UNIT/ML INSULN PEN SUBCUT ×4 (08:59→20:37)
[2019-03-04] MEDS: LISINOPRIL 20 MG TABLET 40 MG PO (09:01)
[2019-03-04] MEDS: NIFEdipine 30 MG TAB ER 60 MG PO (09:16)
[2019-03-04] MEDS: NICOTINE 14 PATCH 14 MG TOP (09:16)
--- NOTE | 2019-03-04 15:32 | PM.PN.1 ---
Subjective Subjective Date Patient Seen: 03/04/19 Time Patient Seen: 08:50 Interval history: Mr. Espino is a 73 year old male with PMH of DM, hypertension, COPD, PAD, and BPH who presented with dyspnea on exertion. He underwent a CTA which was negative for PE, but did show bilateral pleural effusions. Given an elevated BNP of 1300 it was thought that this was secondary to volume overload. His echocardiogram revealed a normal ejection fraction in and no evidence of diastolic dysfunction but did show concentric left ventricular hypertrophy. Repeat chest imaging showed improvement in bilateral hazy opacities but still with bilateral pleural effusions. He is still requiring supplemental oxygen this afternoon. Overnight he had some worsening oxygen saturations with requirement of high-flow nasal cannula. ABG showed profound hypoxemia with a PO2 of 47. He had a mildly elevated troponin of 0.03 which down trended, this was likely secondary to demand. His EKG done overnight showed no evidence of ischemia and no changes from prior study in June of last year. Exam Vital Signs (past 8 hours): - 03/04/19 07:36 03/04/19 07:40 03/04/19 07:48 Temperature Pulse Rate 65 Respiratory Rate 20 Blood Pressure Pulse Oximetry 95 91 93 03/04/19 08:00 03/04/19 10:36 03/04/19 12:00 Temperature 97.7 F 98.2 F Pulse Rate 62 67 69 Respiratory Rate 16 16 16 Blood Pressure 150/64 H 161/64 H Pulse Oximetry 94 94 91 03/04/19 14:53 Temperature Pulse Rate 71 Respiratory Rate 20 Blood Pressure Pulse Oximetry 94 Oxygen Delivery Method Nasal Cannula Oxygen Flow Rate 4 Narrative Exam Narrative: GENERAL APPEARANCE: Thin appearing male in no acute distress. SKIN: Inspection of the skin reveals no rashes, ulcerations or petechiae. HEENT: The sclerae were anicteric and conjunctivae were pink and moist. Extraocular movements were intact and pupils were equal, round with normal accommodation. External inspection of the ears and nose showed no scars, lesions, or masses. Lips, teeth, and gums showed normal mucosa. The oral mucosa, hard and soft palate, tongue and posterior pharynx were unremarkable. NECK: Supple and symmetric. There was no thyroid enlargement, and no tenderness, or masses were felt. CHEST: Normal AP diameter and normal contour without any kyphoscoliosis. LUNGS: Auscultation of the lungs revealed diminished breath sounds at the lung bases and expiratory wheezes this morning improved with nebulizer therapy. CARDIOVASCULAR: There was a regular rate and rhythm without any murmurs, gallops, rubs. Peripheral pulses were 2+ and symmetric. ABDOMEN: Soft and nontender with normal bowel sounds. No ascites was noted. MUSCULOSKELETAL: There was no tenderness or effusions noted. Muscle strength and tone were normal. EXTREMITIES: No cyanosis, clubbing or edema. NEUROLOGIC: Alert and oriented x 3. Normal affect. Strength is +5/5 in the Upper Extremities and Lower Extremities Bilaterally. Objective Labs Result Diagrams: 03/04/19 07:30 03/04/19 07:30 Labs: Laboratory Results - last 24 hr 03/04/19 03/04/19 03/04/19 01:35 03:01 07:30 WBC RBC Hgb Hct MCV MCH MCHC RDW Plt Count Neut % (Auto) Lymph % (Auto) [place] % (Auto) Eos % (Auto) Baso % (Auto) Neut # (Auto) Lymph # (Auto) [place] # (Auto) Eos # (Auto) Baso # (Auto) ABG pH 7.45 ABG pCO2 29.4 L ABG pO2 47 L* ABG HCO3 21 L ABG Total CO2 21 ABG O2 Saturation 86 L ABG Base Excess -3.0 L FiO2 40 Sodium Potassium Chloride Carbon Dioxide BUN Creatinine Estimated GFR BUN/Creatinine Ratio Glucose Calcium Total Bilirubin AST ALT Alkaline Phosphatase Troponin I 0.036 H 0.026 Total Protein Albumin Globulin Albumin/Globulin Ratio 03/04/19 03/04/19 07:30 07:30 WBC 9.3 D RBC 3.36 L Hgb 9.5 L Hct 28.6 L MCV 85.2 MCH 28.4 MCHC 33.3 RDW 16.9 H Plt Count 234 Neut % (Auto) 74.3 Lymph % (Auto) 16.4 L [place] % (Auto) 8.5 Eos % (Auto) 0.2 L Baso % (Auto) 0.6 Neut # (Auto) 6900 Lymph # (Auto) 1500 [place] # (Auto) 800 Eos # (Auto) 0 Baso # (Auto) 100 ABG pH ABG pCO2 ABG pO2 ABG HCO3 ABG Total CO2 ABG O2 Saturation ABG Base Excess FiO2 Sodium 138 Potassium 4.7 Chloride 105 Carbon Dioxide 25 BUN 51 H Creatinine 2.50 H Estimated GFR 25.3 L BUN/Creatinine Ratio 20.4 Glucose 239 H Calcium 8.8 Total Bilirubin 0.6 AST 17 ALT 10 Alkaline Phosphatase 96 Troponin I Total Protein 5.3 L Albumin 3.0 L Globulin 2.3 Albumin/Globulin Ratio 1.3 Assessment & Plan Assessment & Plan narrative: Mr. Espino is a 73 year old male with PMH of DM, hypertension, COPD, PAD, and BPH who presented with dyspnea on exertion over the past 4 days who was admitted for acute hypoxemic respiratory failure likely secondary to bilateral pleural effusions. He remains on supplemental oxygen at this time. 1. Acute hypoxemic respiratory failure, present on admission -likely secondary to new bilateral pleural effusions. The etiology is unclear of these bilateral pleural effusions and is discussed below. Further Differential of his respiratory failure includes COPD or possibly diastolic heart failure however he does not appear to be volume overloaded at this time. Elevated troponin of 0.026 which down trended. Echo cardiogram showing concentric left ventricular hypertrophy with normal ejection fraction. Telemetry BMP 1330, and chest x-ray today does show improvement and bilateral hazy opacities. However he has no lower extremity edema, no JVD or hepato-jugular reflex and his symptoms have not improved much with Lasix. He was transition to p.o. Lasix today mainly for elevated blood pressure as he does not appear volume overloaded at this time. Strict Is and Os, 1500 cc fluid restriction Continue duo nebs Respiratory therapy eval and treat, appreciate recommendations Continue albuterol as needed 2. Bilateral pleural effusions, present on admission -initially these were thought to be secondary to volume overload in setting of CHF however his echocardiogram does not mention diastolic dysfunction and he has a normal ejection fraction. His imaging has improved with Lasix however he is still requiring supplemental oxygen. He clinically appears euvolemic on exam. Differential for the effusion still includes diastolic heart failure, but further malignancy especially given his smoking history, and parapneumonic effusions however this is felt to be unlikely given lack of fever or productive cough and bilateral appearance. -continue to diurese slightly with p.o. Lasix -should patient still require supplemental oxygen he should have a thoracentesis on Friday to help determine the etiology of this fluid and assist with his hypoxemic respiratory failure. 3. Acute kidney injury with a creatinine of 1.8 on admission acute, present on admission -possibly secondary to fluid overload however echocardiogram was unremarkable as noted above. Renal ultrasound did not show evidence of hydronephrosis and patient was voiding adequately. Jumped again today to 2.5. Previous normal lab value was from approximately 1 year ago. Given chronically elevated blood pressure this may be more chronic in nature as far as his initial lab value but he definitely has an acute jump today. Renal US as noted above Avoid nephrotoxic medications and substances Will resume lisinopril tomorrow given elevated blood pressures Continue to monitor BMP and electrolytes. Consider Nephrology tomorrow if creatinine still rising. He may need diuresis however his volume status is unclear at this time. 3. BPH, appears to be chronic, POA Patient has a pending referral to Urology Continue home terazosin 4. Diabetes type 2, chronic and uncontrolled with a new A1c of 7.8, POA Continue home dose of Lantus 40 units at bedtime Low dose insulin correctional scale Added mealtime coverage today Oral antidiabetics are being held 5. hypertension, acute, uncontrolled, POA but improving Patient's systolics were in the 200s in the ED, now 140/90. Blood pressures remained elevated and amlodipine was changed to nifedipine. Lisinopril was held but have resumed today but will need to be cautious given elevated creatinine. Patient to continue home metoprolol. Lasix has also been added as noted above. 6. PAD, chronic and stable, POA Continue home dose of clopidogrel 75 mg po daily and asa 81 mg po daily 7. Depression, chronic and stable Continue home dose of duloxetine 20 mg po daily 8. Type 2 SC, secondary to demand given hypoxemic episode. Troponin did down trend. EKGs were unchanged from previous exams in June of 2017. Code: Full Dispo: Remains inpatient DVT: Lovenox daily Quality VTE Deep Vein Thrombosis/Pulmonary Embolism Present on Admission: No
--- NOTE | 2019-03-04 15:38 | PC.NURSE ---
Resp: [place] well today until this afternoon, started to have nausea, lower sats for him, pale, no c/p, ended up having a 300ml emesis. MD made aware and Dr. Coleman did come and see pt a second time. RT worked with pt and pt thinks he is breathing easier now. O2 sats now at 91-93%, nausea is almost completely gone/no further emesis. Pt likes to keep hob at least sl elevated for breathing. Has had more of a cough today than yesterday. Pt is resting quietly at the moment. Cont w/poc.
--- NOTE | 2019-03-04 15:57 | PC.NURSE ---
Addendum entered by Lucia Back R.N. 03/04/19 21:00: Intermittent cough noted, moist non productive. Up to BR with cane, steady gait with assistance. Large bruise noted to right inner elbow, no open skin, healing. States it occur from noc shift venipuncture. Continue on 4L O2 via NC. Original Note: [place] shift note: Received patient on O2 at 4L via NC, sats 94% at rest on continuous pulse oximetry. Awake, alert, and pleasant, states breathing effort improved in comparison to last night. Speaking in full sentences. Coarse lung sounds to right middle lobe. No c/o nausea or pain. Strict I & O's and fluid restrictions in place. High fall risk precautions, call light within reach, and bed alarm active. Verbalizes understanding of calling staff for assistance. Moving independently in bed. Will continue to monitor closely.
--- NOTE | 2019-03-04 19:21 | PATH_ITS ---
Note [facility] Accession Number: [id number] TESTS RESULT FLAG UNITS REF RANGE LAB Clinician Provided Cytology Information No. of containers..01 Other (Miscellaneous) 01 PLEURAL FLUID Clinician ICD10: 01 [place] DIAGNOSIS: 02 PLEURAL FLUID NEGATIVE FOR MALIGNANT CELLS. REACTIVE MESOTHELIAL CELLS ARE PRESENT. COMMENT A mucicarmine stain was performed to evaluate vacuolated cells of interest, and is negative, consistent with the impression of vacuolated mesothelial cells. The control stain showed appropriate reactivity. There is no evidence of a malignant cell population. As part of routine quality review trainer, Dr. Tay Corona also reviewed this case and agrees with the diagnosis. Pathologist ICD10: 02 J90 02 Do Rabago MD, Pathologist NPI- [id number] Vincent Han, [employer] Support Specialist (ASC) 01 70 CC, YELLOW, CLEAR /LCS 04/06/1840 0000 Local FLAG LEGEND: L-Low Normal,H-High Normal,LL-Alert Low,HH-Alert High <-Panic Low,>-Panic High,A-Abnormal,AA-Critical Abnormal Performed at: 01 =Z [facility] [address], [place] [address] Jonah Sampson MD, 02 LCLWA [facility] [address] [place] [address] Do Rabago MD, Performed at: 01 [facility] [address], [place], [place] [id number] MD Jonah Sampson MD Phone: [phone]
--- NOTE | 2019-03-04 19:21 | DI.US.S_ITS ---
PROCEDURE: US THORACENTESIS INDICATIONS: PLEURAL EFFUSION TECHNIQUE: The indications, alternatives, benefits, risks, and complications of the procedure were explained to the patient. Written informed consent was obtained and placed in the chart. The chest was examined sonographically, and an appropriate site was chosen for thoracentesis. The skin was prepared and draped in the usual sterile fashion, and 1% lidocaine was infiltrated from the skin down through the pleural surface. A 19-gauge catheter-covered needle was then introduced into the pleural space, the catheter was advanced and the needle was withdrawn, and thereafter pleural fluid was aspirated. The catheter was then removed and a dressing was applied. COMPARISON: None. FINDINGS: Access site: Right lower posterior hemithorax. Needle: One-Step centesis catheter with introducer needle. Fluid volume and description: 2300 clear serous fluid Fluid sent for diagnostic testing: At the direction of the ordering health care provider Medications: 1% lidocaine for local anaesthesia. Complications: None; post-procedural chest radiograph is pending to assess for pneumothorax. IMPRESSION: Successful ultrasound-guided thoracentesis. Dictated by: Ricco Buenrostro M.D. on 03/05/2019 at 13:32 Approved by: Ricco Buenrostro M.D. on 03/05/2019 at 13:33
[2019-03-04] MEDS: ATORVASTATIN 20 MG TABLET 40 MG PO (20:21)
[2019-03-04] MEDS: DULOXETINE 20 MG CAPSULE PO (20:21)
[2019-03-04] MEDS: TERAZOSIN 1 MG CAPSULE PO (20:22)
[2019-03-04] MEDS: INSULIN GLARGINE 100 UNIT/ML 3ML PEN 40 UNIT SUBCUT (20:37)
[2019-03-05] VITALS (12 sets, daily range): BP systolic 139–161; BP diastolic 54–65; PULSE 66–76; RESP 16–18; TEMP 36.4–36.8; O2SAT 87–97
--- NOTE | 2019-03-05 | DI.RAD.S_ITS ---
PROCEDURE: XR CHEST 1V INDICATIONS: post thoracentesis TECHNIQUE: One view of the chest was acquired. COMPARISON: [facility], CR, XR CHEST 1V, 03/04/2019, 7:53. [facility], CR, XR CHEST 1V, 03/03/2019, 13:34. FINDINGS: Surgical changes and devices: None. Lungs and pleura: Lungs are improved with a lesser degree of subpulmonic right effusion. No pleural effusions or pneumothorax. Mediastinum: Mediastinal contours appear normal. Heart size is normal. Bones and chest wall: No suspicious bony lesions. Overlying soft tissues appear unremarkable. IMPRESSION: Essentially resolution of subpulmonic right pleural effusion after 2300 cc right thoracentesis performed immediately before this chest plain film was obtained. Dictated by: Ricco Buenrostro M.D. on 03/05/2019 at 13:33 Approved by: Ricco Buenrostro M.D. on 03/05/2019 at 13:34
--- NOTE | 2019-03-05 01:32 | PC.NURSE ---
Addendum entered by Dorene Headley R.N. 03/05/19 02:10: Earlier had 100cc clear, frothy emesis. Now had an additional 100cc maroon (per [employer]) emesis. Patient states still having some RLQ pain but not better than earlier. Ricco PROCTOR, informed and in to see patient. Original Note: 03/04 @ 2340 patient assessed. Is alert and oriented. Breath sounds diminished but CTA with sat of 90% on NC @ 4L/min. Does get SOB and noted to desat with activity; is on continuous pulse oximetry. HRR and was SR on telemetry reading. BP elevated again tonight at 164/59. Complaining of tenderness in RLQ along with belching; medicated with Zofran. BT hypoactive but is passing flatus. Voiding per urinal without dysuria, frequency or urgency. Is able to move self in bed and is assisted when out of bed; uses cane and 1 assist. 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 Reports several recent falls so fall risk score is high and bed alarm is activated.
[2019-03-05] MEDS: PANTOPRAZOLE 20 MG TABLET 40 MG PO (02:48)
[2019-03-05] MEDS: MAG HYDROX/ALUM/SIMETH 30 ML UDC PO (02:48)
[2019-03-05 05:34] LABS: Lactate Dehydrogenase 350 U/L (313-618)
[2019-03-05 05:36] LABS: Add Manual Diff / Slide Review NO; Basophils Absolute Auto 0 /uL (0-100); Basophils Percent Auto 0.6 % (0-2); Eosinophils Absolute Auto 200 /uL (0-450); Eosinophils Percent Auto 2.8 % (2-4); Hematocrit 28.6 % (41-53); Hemoglobin 9.4 g/dL (13.5-17.5); Lymphocytes Absolute Auto 700 /uL (1100-4500); Lymphocytes Percent Auto 8.6 % (25-40); Mean Corpuscular HGB Conc 32.9 % (30-36); Mean Corpuscular Hemoglobin 28.2 PG (26-34); Mean Corpuscular Volume 85.7 fL (80-100); Monocytes Absolute Auto 400 /uL (0-900); Monocytes Percent Auto 5.6 % (3-14); Neutrophils Absolute Auto 6500 /uL (1500-7000); Neutrophils Percent Auto 82.4 % (50-75); Platelet Count 217 X10^3/uL (150-400); Red Blood Cell Count 3.34 X10^6/uL (4.5-5.9); Red Cell Distribution Width 17.2 % (11.6-14.8); White Blood Cell Count 7.8 X10^3/uL (4.5-11.0)
[2019-03-05 05:39] LABS: Albumin 2.8 g/dL (3.5-5.0); BUN Creatinine Ratio 19.3 (6-22); Blood Urea Nitrogen 54 mg/dL (9-20); Calcium 8.6 mg/dL (8.4-10.2); Carbon Dioxide 25 mmol/L (22-32); Chloride 106 mmol/L (98-107); Estimated Glomerular Filt Rate 22.2 mL/min (>60); Glucose 261 mg/dL (80-110); HEMOLYSIS < 15 (0-50); Phosphorous 4.9 mg/dL (2.3-3.7); Potassium 4.8 mmol/L (3.4-5.1); Sodium 138 mmol/L (137-145)
[2019-03-05 06:01] LABS: B Type Natriuretic Peptide 492 (<100)
[2019-03-05] MEDS: ALBUTEROL/IPRATROPIUM 3 ML AMPUL INH ×3 (06:46→20:12)
[2019-03-05] MEDS: NIFEdipine 30 MG TAB ER 60 MG PO (09:07)
[2019-03-05] MEDS: LISINOPRIL 20 MG TABLET 40 MG PO (09:07)
[2019-03-05] MEDS: METOPROLOL ER 50 MG TABLET PO (09:07)
[2019-03-05] MEDS: FUROSEMIDE 20 MG TABLET PO (09:07)
[2019-03-05] MEDS: NICOTINE 14 PATCH 14 MG TOP (09:07)
[2019-03-05] MEDS: INSULIN ASPART 100 UNIT/ML INSULN PEN 6 UNIT SUBCUT ×3 (09:09→16:52)
[2019-03-05] MEDS: INSULIN ASPART 100 UNIT/ML INSULN PEN SUBCUT ×3 (09:09→16:53)
--- NOTE | 2019-03-05 10:35 | P.PN_ITS ---
Subjective Subjective Date Patient Seen: 03/05/19 Time Patient Seen: 10:35 Interval history: He is seen today to follow-up the Pleural Effusions, COPD, restless legs, diabetes mellitus, anemia, acute on chronic renal failure. His blood sugars continue above 200 so his insulin dose was increased last night. He is breathing better. The BNP dropped to 492. The hemoglobin is stable at 9.4. He was started on pantoprazole for GI protection last night. The BUN dianne from 35-54 and the creatinine also dianne. He complains of increased abdominal discomfort after eating turkey yesterday on . Exam Vital Signs (past 8 hours): - 03/05/19 03:30 03/05/19 05:17 03/05/19 06:46 Temperature 98.2 F Pulse Rate 72 68 Respiratory Rate 18 18 Blood Pressure 139/54 L Pulse Oximetry 88 L 91 90 L 03/05/19 07:45 03/05/19 09:08 Temperature 98.2 F Pulse Rate 76 76 Respiratory Rate 16 16 Blood Pressure 161/65 H Pulse Oximetry 87 L 91 Oxygen Delivery Method Nasal Cannula Oxygen Flow Rate 4 Narrative Exam Narrative: He is alert and oriented x3. Abdomen is somewhat distended, nontender, no organomegaly, bowel sounds active Heart is regular rate and rhythm without murmur. Lungs are clear to auscultation bilaterally. Extremities have no ankle edema. Objective Labs Result Diagrams: 03/05/19 05:10 03/05/19 05:10 Labs: Laboratory Results - last 24 hr 03/05/19 03/05/19 03/05/19 05:10 05:10 05:10 WBC 7.8 RBC 3.34 L Hgb 9.4 L Hct 28.6 L MCV 85.7 MCH 28.2 MCHC 32.9 RDW 17.2 H Plt Count 217 Neut % (Auto) 82.4 H Lymph % (Auto) 8.6 L [place] % (Auto) 5.6 Eos % (Auto) 2.8 Baso % (Auto) 0.6 Neut # (Auto) 6500 Lymph # (Auto) 700 L [place] # (Auto) 400 Eos # (Auto) 200 Baso # (Auto) 0 Sodium 138 Potassium 4.8 Chloride 106 Carbon Dioxide 25 BUN 54 H Creatinine 2.80 H Estimated GFR 22.2 L BUN/Creatinine Ratio 19.3 Glucose 261 H Calcium 8.6 Phosphorus 4.9 H Lactate Dehydrogenase 350 B-Natriuretic Peptide 492 H Albumin 2.8 L Assessment & Plan Assessment & Plan narrative: Mr. Espino is a 73 year old male with PMH of DM, hypertension, COPD, PAD, and BPH who presented with dyspnea on exertion over the previous 4 days and was admitted for acute hypoxemic respiratory failure likely secondary to bilateral pleural effusions. He remains on oxygen at this time. 1. Acute hypoxemic respiratory failure, present on admission -likely secondary to new bilateral pleural effusions. The etiology is unclear of these bilateral pleural effusions and is discussed below. Further Differential of his respiratory failure includes COPD or possibly diastolic heart failure however he does not appear to be volume overloaded at this time. Elevated troponin of 0.026 which down trended. Echocardiogram showing concentric left ventricular hypertrophy with normal ejection fraction. BNP 1330, and chest x-ray shows improvement of bilateral hazy opacities. However he has no lower extremity edema, no JVD or hepato-jugular reflex and his symptoms have not improved much with Lasix. He was transition to p.o. Lasix yesterday mainly for elevated blood pressure as he does not appear volume overloaded at this time. Strict Is and Os, 1500 cc fluid restriction Continue duo nebs Respiratory therapy eval and treat, appreciate recommendations Continue albuterol as needed 2. Bilateral pleural effusions, present on admission -initially these were thought to be secondary to volume overload in setting of CHF however his echocardiogram does not mention diastolic dysfunction and he has a normal ejection fraction. His imaging has improved with Lasix however he is still requiring supplemental oxygen. He clinically appears euvolemic on exam. Differential for the effusion still includes diastolic heart failure, but further malignancy especially given his smoking history, and parapneumonic effusions however this is felt to be unlikely given lack of fever or productive cough and bilateral appearance. -continue to diurese slightly with p.o. Lasix -He will have Thoracentesis today to help determine the etiology of this fluid and assist with his hypoxemic respiratory failure. 3. Acute kidney injury with a creatinine of 1.8 on admission acute, present on admission -possibly secondary to fluid overload however echocardiogram was unremarkable as noted above. Renal ultrasound did not show evidence of hydronephrosis and patient was voiding adequately. Rising again today to 2.8. Previous normal lab value was from approximately 1 year ago. Given chronically elevated blood pressure this may be more chronic in nature as far as his initial lab value but he definitely has an acute jump yesterday and today. Renal US as noted above Avoid nephrotoxic medications and substances Holding lisinopril Continue to monitor BMP and electrolytes. Consider Nephrology consult if creatinine progression does not improve. 3. BPH, appears to be chronic, POA Patient has a pending referral to Urology Continue home terazosin 4. Diabetes type 2, chronic and uncontrolled with a new A1c of 7.8, POA Continue home dose of Lantus 40 units at bedtime Low dose insulin correctional scale Mealtime coverage Oral antidiabetics are being held 5. hypertension, acute, uncontrolled, POA but improving Patient's systolics were in the 200s in the ED, now 140/90. Blood pressures remained elevated and amlodipine was changed to nifedipine. Hold Lisinopril and continue home metoprolol. Lasix has also been added as noted above. 6. PAD, chronic and stable, POA Continue home dose of clopidogrel 75 mg po daily and asa 81 mg po daily 7. Depression, chronic and stable Continue home dose of duloxetine 20 mg po daily 8. Type 2 AR, secondary to demand given hypoxemic episode. Troponin did down trend. EKGs were unchanged from previous exams in June of 2017. Code: Full Dispo: Remains inpatient DVT: Lovenox daily Quality VTE Deep Vein Thrombosis/Pulmonary Embolism Present on Admission: No
[2019-03-05] MEDS: SODIUM CHLORIDE 0.9% FLUSH 10 ML IV ×2 (11:40→20:40)
[2019-03-05 13:39] LABS: Body Fluid Tot Nucleated Cells 218 /uL
[2019-03-05 13:46] LABS: Body Fluid Red Blood Cells 281 /uL
[2019-03-05 13:51] LABS: pH Body Fluid 7.5 pH
[2019-03-05 14:01] LABS: Glucose Body Fluid 206 mg/dL; LDH Body Fluid 208 U/L; Total Protein Body Fluid < 2.0 g/dL
[2019-03-05 14:02] LABS: Body Fluid Appearance SLIGHTLY CLOUDY; Body Fluid Clotted? NO CLOTS PRESENT; Body Fluid Color YELLOW
[2019-03-05 14:03] LABS: Eosinophils Body Fluid 0 %; Mononuclear WBC Body Fluid 80 %; Other Cells Body Fluid 6 %; Polynuclear WBC Body Fluid 14 %
[2019-03-05] MEDS: CLOPIDOGREL 75 MG TABLET PO (14:04)
[2019-03-05] MEDS: HEPARIN 5,000 UNIT/ML VIAL 5000 UNIT SUBCUT ×2 (14:04→20:37)
[2019-03-05] MEDS: ASPIRIN EC 81 MG TABLET PO (14:04)
--- NOTE | 2019-03-05 14:39 | PC.NURSE ---
Resp: SI'm feeling better. Pt off for thoracentesis this afternoon. O2 sats at that time were about 90% on 4L. Quickly desats to 80-82 with movement or act. After thoracentesis pt had sats 95-97%, RT is working with patient and may decreased O2 after working with him. Does remain on 4L for now as they eval. bandaid to lower right back is c/d/i. For the first time pt had a smile and said he was breathing easier. Resting comfortablely at the moment.
[2019-03-05] MEDS: PREGABALIN 75 MG CAPSULE PO ×2 (15:52→20:37)
--- NOTE | 2019-03-05 16:04 | CM.DPC ---
DCP: continued: case received, EMR reviewed. Discussed in Team Rounds with RN coordinator noting that thoracentesis/US guided was completed this afternoon: 2300 ccs out. Will be following as POC unfolds: see that plan at this time is for pt to return home at d/c and that his daughter has beens staying with him while he recovers from a recent back surgery at [facility] in [place].
[2019-03-05] MEDS: ACETAMINOPHEN 325 MG TABLET 650 MG PO (16:08)
[2019-03-05] MEDS: ATORVASTATIN 20 MG TABLET 40 MG PO (20:37)
[2019-03-05] MEDS: DULOXETINE 20 MG CAPSULE PO (20:39)
[2019-03-05] MEDS: TERAZOSIN 1 MG CAPSULE PO (20:40)
[2019-03-05] MEDS: INSULIN GLARGINE 100 UNIT/ML 3ML PEN 40 UNIT SUBCUT (20:44)
[2019-03-05] MEDS: PANTOPRAZOLE 20 MG TABLET PO (21:22)
[2019-03-06] VITALS (18 sets, daily range): BP systolic 128–165; BP diastolic 51–63; PULSE 59–78; RESP 14–20; TEMP 36.4–37; O2SAT 89–96
--- NOTE | 2019-03-06 05:19 | PC.NURSE ---
Addendum entered by Adali Springer R.N. 03/06/19 06:14: Recheck of blood sugar at 0605 was 117. Original Note: Patient lung sounds diminished bilaterally, Patient is on tele: NS, NS PAC's. Blood sugar check at 0200 was 65, pt given 4oz orange juice. Blood sugar check at 0530, BS 56 at 0530, Romeo PROCTOR notified. Romeo advised D50w. Patient given D50w 25ml at 0550. Will re-check blood sugar.
[2019-03-06] MEDS: DEXTROSE 50 % IN WATER 25 GM/50 ML SYRINGE IV (05:45)
[2019-03-06 06:04] LABS: BUN Creatinine Ratio 21.2 (6-22); Blood Urea Nitrogen 53 mg/dL (9-20); Calcium 8.7 mg/dL (8.4-10.2); Carbon Dioxide 26 mmol/L (22-32); Chloride 109 mmol/L (98-107); Estimated Glomerular Filt Rate 25.3 mL/min (>60); Glucose 47 mg/dL (80-110); HEMOLYSIS < 15 (0-50); Potassium 4.7 mmol/L (3.4-5.1); Sodium 140 mmol/L (137-145)
[2019-03-06] MEDS: ALBUTEROL/IPRATROPIUM 3 ML AMPUL INH ×2 (08:39→19:26)
[2019-03-06] MEDS: INSULIN ASPART 100 UNIT/ML INSULN PEN 6 UNIT SUBCUT ×2 (08:54→17:03)
[2019-03-06] MEDS: ASPIRIN EC 81 MG TABLET PO (08:55)
[2019-03-06] MEDS: CLOPIDOGREL 75 MG TABLET PO (08:56)
[2019-03-06] MEDS: METOPROLOL ER 50 MG TABLET PO (08:57)
[2019-03-06] MEDS: NICOTINE 14 PATCH 14 MG TOP (08:57)
[2019-03-06] MEDS: FUROSEMIDE 20 MG TABLET PO (08:57)
[2019-03-06] MEDS: NIFEdipine 30 MG TAB ER 60 MG PO (08:58)
[2019-03-06] MEDS: PREGABALIN 75 MG CAPSULE PO ×2 (08:58→21:25)
[2019-03-06] MEDS: HEPARIN 5,000 UNIT/ML VIAL 5000 UNIT SUBCUT ×2 (08:59→21:28)
[2019-03-06] MEDS: SODIUM CHLORIDE 0.9% FLUSH 10 ML IV ×2 (09:06→21:28)
[2019-03-06] MEDS: PANTOPRAZOLE 20 MG TABLET PO ×2 (09:11→21:25)
--- NOTE | 2019-03-06 11:25 | P.PN_ITS ---
Subjective Subjective Date Patient Seen: 03/06/19 Time Patient Seen: 11:25 Interval history: He is seen today to follow-up his chronic kidney disease, COPD, bilateral pleural effusions and diabetes mellitus. He has become significantly hypoglycemic as his dose of insulin was increased and his oral intake has been variable. Last night he says he was unable to eat supper and sure enough overnight his sugar dropped to 43. He has required additional IV dextrose. His creatinine has dropped from 2.8 down to 2.5. A total of 2300 mL was removed from the right lung on thoracentesis yesterday. His sat continues to be just above and below a 90%. There were no cells, organisms, WBCs in the thoracentesis fluid. This appears to be transudative with a protein level less than 2.0 and an LDH of 218. Exam Vital Signs (past 8 hours): - 03/06/19 04:00 03/06/19 07:29 03/06/19 08:00 Temperature 97.6 F 97.9 F Pulse Rate 66 61 Respiratory Rate 20 18 Blood Pressure 138/53 L 165/63 H Pulse Oximetry 89 L 92 94 03/06/19 08:20 03/06/19 08:40 03/06/19 08:43 Temperature Pulse Rate 65 Respiratory Rate 14 Blood Pressure Pulse Oximetry 95 93 96 03/06/19 09:01 03/06/19 10:53 Temperature Pulse Rate Respiratory Rate Blood Pressure Pulse Oximetry 91 91 Oxygen Delivery Method Room Air Oxygen Flow Rate 0 Narrative Exam Narrative: He is alert and oriented, without apparent distress Heart is regular rate and rhythm without murmur Lungs are clear to auscultation bilaterally Extremities have no ankle edema. Objective Labs Result Diagrams: 03/05/19 05:10 03/06/19 05:30 Labs: Laboratory Results - last 24 hr 03/05/19 03/05/19 03/05/19 13:10 13:10 13:10 Sodium Potassium Chloride Carbon Dioxide BUN Creatinine Estimated GFR BUN/Creatinine Ratio Glucose Calcium Fluid Color Yellow Fluid Appearance Slightly cloudy Fluid pH Fluid RBC 281 Fld Tot Nucleated Cell 218 Fluid Polynuclear WBCs 14 Fluid Mononuclear WBCs 80 Fluid Eosinophils 0 Fluid Other Cells 6 Body Fluid Clot No clots present Fluid Glucose Fluid Total Protein < 2.0 Fluid LDH 208 03/05/19 03/05/19 03/06/19 13:10 13:10 05:30 Sodium 140 Potassium 4.7 Chloride 109 H Carbon Dioxide 26 BUN 53 H Creatinine 2.50 H Estimated GFR 25.3 L BUN/Creatinine Ratio 21.2 Glucose 47 L D Calcium 8.7 Fluid Color Fluid Appearance Fluid pH 7.5 Fluid RBC Fld Tot Nucleated Cell Fluid Polynuclear WBCs Fluid Mononuclear WBCs Fluid Eosinophils Fluid Other Cells Body Fluid Clot Fluid Glucose 206 Fluid Total Protein Fluid LDH Assessment & Plan Assessment & Plan narrative: Mr. Espino is a 73 year old male with PMH of DM, hypertension, COPD, PAD, and BPH who presented with dyspnea on exertion over the previous 4 days and was admitted for acute hypoxemic respiratory failure likely secondary to bilateral pleural effusions. He remains on oxygen. 1. Acute hypoxemic respiratory failure, present on admission -likely secondary to new bilateral pleural effusions. These appear to be transudative bilateral pleural effusions on the initial thoracentesis testing. Elevated troponin of 0.026 which down trended. Echocardiogram showing concentric left ventricular hypertrophy with normal ejection fraction. BNP 1330, and chest x-ray shows improvement of bilateral hazy opacities. However he has no lower extremity edema, no JVD or hepato-jugular reflex and his symptoms have not improved much with Lasix. He was transition to p.o. Lasix mainly for elevated blood pressure as he did not appear volume overloaded. Strict Is and Os, 1500 cc fluid restriction Continue duo nebs Respiratory therapy eval and treat, appreciate recommendations Continue albuterol as needed 2. Bilateral pleural effusions, present on admission - Transudative on first r esults. Additional evaluation including culture are pending. -continue to diurese with low dose p.o. Lasix 3. Acute kidney injury with a creatinine of 1.8 on admission acute, present on admission -possibly secondary to fluid overload however echocardiogram was unremarkable as noted above. Renal ultrasound did not show evidence of hydronephrosis and patient was voiding adequately. Back down to 2.5 today. Previous normal lab value was from approximately 1 year ago. Given chronically elevated blood pressure this may be more chronic in nature as far as his initial lab value but he definitely has an acute jump yesterday and today. Renal US as noted above Avoid nephrotoxic medications and substances Holding lisinopril Continue to monitor BMP and electrolytes. Consider Nephrology consult if creatinine progression does not improve. 3. BPH, appears to be chronic, POA Patient has a pending referral to Urology Continue home terazosin 4. Diabetes type 2, chronic and uncontrolled with a new A1c of 7.8, POA Continue home dose of Lantus 10 units at bedtime. He has been significantly hy poglycemic and it turns out that he states his home dose is actually 10 units instead of the 40 that was recorded on admission. Low dose insulin correctional scale Mealtime coverage Oral antidiabetics are being held 5. hypertension, acute, uncontrolled, POA but improving Patient's systolics were in the 200s in the ED, now 140/90. Blood pressures remained elevated and amlodipine was changed to nifedipine. Hold Lisinopril and continue home metoprolol. Lasix has also been added as noted above. 6. PAD, chronic and stable, POA Continue home dose of clopidogrel 75 mg po daily and asa 81 mg po daily 7. Depression, chronic and stable Continue home dose of duloxetine 20 mg po daily 8. Type 2 [place], secondary to demand given hypoxemic episode. Troponin did down trend. EKGs were unchanged from previous exams in June of 2017. Code: Full Dispo: Remains inpatient DVT: Lovenox daily Quality VTE Deep Vein Thrombosis/Pulmonary Embolism Present on Admission: No
--- NOTE | 2019-03-06 13:26 | PC.NURSE ---
Day Shift- Pt's finger stick blood glucose at lunch was 60, reported by TRUCK DRIVER'S OFFSIDER, pt asymptomatic sitting in recliner chair. Lunch tray given, pt reported half way through his sandwich he felt sweaty. Spoke with Dr. Varghese at 1325, reported Blood glucose trend and insulin taken. Dr resendiz review. Pt's daughter Do called at 0820 and 1218 and updated with pt's permission.
--- NOTE | 2019-03-06 14:13 | CM.DPC ---
Addendum entered by Margarita Ding LPN 03/07/19 13:01: UR DAVIDA Grimes confirms she did fax the [facility] 119 form in yesterday afternoon. Addendum entered by Margarita Ding LPN 03/06/19 14:23: Taryn's notes are also in COL area of EMR. She did meet with pt to update him on the insurance process and advises UR team to fax [facility] 119 form is this is not already done. (pt has been here since 03/02) Original Note: DCP: continued. Case discussed in Team Rounds with Dr. Varghese noting that pt may be ready for d/c to home setting by tomorrow. Checked in with pt after francisco and he confirms same. Pt's primary concern at this time is re the status of the [facility] notification process. Checked in with UR DAVIDA Grimes and also reviewed the COL notes which seemed a bit vague. Agreed with same. Did alert [facility]mit [facility] and asked for clarity as pt was very concerned. ADC Taryn Kellogg has looked into this in detail, clarified what she could and UR RN will need to follow up accordingly. Taryn's recommendations are outlined in OUTLOOK email response. Taryn does confirm pt also has [employer] as she has notified this payer of the INPT admission.
[2019-03-06] MEDS: INSULIN GLARGINE 100 UNIT/ML 3ML PEN 10 UNIT SUBCUT (21:25)
[2019-03-06] MEDS: TERAZOSIN 1 MG CAPSULE PO (21:25)
[2019-03-06] MEDS: DULOXETINE 20 MG CAPSULE PO (21:25)
[2019-03-06] MEDS: ATORVASTATIN 20 MG TABLET 40 MG PO (21:25)
--- NOTE | 2019-03-06 22:12 | PC.NURSE ---
Assumed care of pt at 1500. Pt sleeping during bedside hand-off. CPAP with 2L O2 bleed in, sats 92-94%. Awakens to voice. CPAP removed sats 89-94% RA. Denies SOB or chest discomfort. Fluid restriction remains in effect. Per Hospitalist OK to keep expiring IV in place if functional as pt is to D/C home tomorrow. IV patent with flushes and shows no s/s of erythema or infiltration. Pt agreeable to keep IV in place. R.T. set up sleep study. Pt appropriate with care. Calling appropriately for needs. Bed alarm on.
[2019-03-07 00:17] VITALS: BP 146/57; PULSE 72; RESP 19; TEMP 36.4; O2SAT 93
--- NOTE | 2019-03-07 00:29 | PC.NURSE ---
Addendum entered by Adali Springer R.N. 03/07/19 06:49: Pt BS check was 240 at 0300. Original Note: Pt taken off sleep study machine by RT. Machine wasn't working correctly. Patient continues to wear CPAP at 2 liters. Lung sounds clear/dim. VSS. Tele: NS.
[2019-03-07 03:59] VITALS: O2SAT 94
[2019-03-07 04:00] VITALS: BP 144/54; PULSE 65; RESP 19; TEMP 36.7; O2SAT 93
[2019-03-07 05:57] LABS: Add Manual Diff / Slide Review NO; Basophils Absolute Auto 100 /uL (0-100); Basophils Percent Auto 0.8 % (0-2); Eosinophils Absolute Auto 500 /uL (0-450); Eosinophils Percent Auto 6.7 % (2-4); Hematocrit 29.3 % (41-53); Hemoglobin 9.5 g/dL (13.5-17.5); Lymphocytes Absolute Auto 1200 /uL (1100-4500); Lymphocytes Percent Auto 15.8 % (25-40); Mean Corpuscular HGB Conc 32.3 % (30-36); Mean Corpuscular Hemoglobin 27.3 PG (26-34); Mean Corpuscular Volume 84.7 fL (80-100); Monocytes Absolute Auto 700 /uL (0-900); Monocytes Percent Auto 9.7 % (3-14); Neutrophils Absolute Auto 5000 /uL (1500-7000); Platelet Count 228 X10^3/uL (150-400); Red Blood Cell Count 3.46 X10^6/uL (4.5-5.9); Red Cell Distribution Width 17.1 % (11.6-14.8); White Blood Cell Count 7.4 X10^3/uL (4.5-11.0)
[2019-03-07 06:10] LABS: BUN Creatinine Ratio 20.4 (6-22); Blood Urea Nitrogen 55 mg/dL (9-20); Calcium 8.5 mg/dL (8.4-10.2); Carbon Dioxide 26 mmol/L (22-32); Chloride 106 mmol/L (98-107); Estimated Glomerular Filt Rate 23.2 mL/min (>60); Glucose 135 mg/dL (80-110); HEMOLYSIS < 15 (0-50); Potassium 4.7 mmol/L (3.4-5.1); Sodium 136 mmol/L (137-145)
[2019-03-07] MEDS: PANTOPRAZOLE 20 MG TABLET PO (06:25)
[2019-03-07] MEDS: ALBUTEROL/IPRATROPIUM 3 ML AMPUL INH (07:36)
[2019-03-07 07:37] VITALS: PULSE 72; RESP 12; O2SAT 94
[2019-03-07 08:00] VITALS: BP 149/57; PULSE 62; RESP 20; TEMP 36.7; O2SAT 94
[2019-03-07] MEDS: ASPIRIN EC 81 MG TABLET PO (09:00)
[2019-03-07] MEDS: CLOPIDOGREL 75 MG TABLET PO (09:00)
[2019-03-07] MEDS: FUROSEMIDE 20 MG TABLET PO (09:01)
[2019-03-07] MEDS: METOPROLOL ER 50 MG TABLET PO (09:01)
[2019-03-07] MEDS: HEPARIN 5,000 UNIT/ML VIAL 5000 UNIT SUBCUT (09:01)
[2019-03-07] MEDS: NIFEdipine 30 MG TAB ER 60 MG PO (09:01)
[2019-03-07] MEDS: PREGABALIN 75 MG CAPSULE PO (09:02)
[2019-03-07] MEDS: SODIUM CHLORIDE 0.9% FLUSH 10 ML IV (09:02)
--- NOTE | 2019-03-07 09:03 | DI.RAD.S_ITS ---
PROCEDURE: XR CHEST 2V INDICATIONS: Pleural Effusion TECHNIQUE: 2 views of the chest were acquired. COMPARISON: [facility], , XR CHEST 1V, 03/05/2019, 13:00. FINDINGS: Surgical changes and devices: None. Lungs and pleura: Right subpulmonic effusion is unchanged in the prior study. There is a new left effusion with atelectasis at the left lung base. The upper lungs are aerated as before. Mediastinum: Mediastinal contours are normal. Heart size is normal. Bones and chest wall: No suspicious bony abnormalities. Soft tissues appear unremarkable. IMPRESSION: Stable right and new left pleural effusion when compared with the prior film dated 03/05/19. Dictated by: Nanette Morton M.D. on 03/07/2019 at 8:32 Approved by: Nanette Morton M.D. on 03/07/2019 at 8:33
[2019-03-07] MEDS: NICOTINE 14 PATCH 14 MG TOP (09:14)
--- NOTE | 2019-03-07 09:24 | P.PN_ITS ---
Subjective Subjective Date Patient Seen: 03/07/19 Time Patient Seen: 09:24 Exam Vital Signs (past 8 hours): - 03/07/19 03:59 03/07/19 04:00 03/07/19 07:37 Temperature 98.0 F Pulse Rate 65 72 Respiratory Rate 19 12 Blood Pressure 144/54 H Pulse Oximetry 94 93 94 03/07/19 08:00 Temperature 98.1 F Pulse Rate 62 Respiratory Rate 20 Blood Pressure 149/57 H Pulse Oximetry 94 Fraction of Inspired Oxygen 21 Oxygen Delivery Method Nasal Cannula Oxygen Flow Rate 0 Objective Labs Result Diagrams: 03/07/19 05:26 03/07/19 05:26 Labs: Laboratory Results - last 24 hr 03/07/19 03/07/19 05:26 05:26 WBC 7.4 RBC 3.46 L Hgb 9.5 L Hct 29.3 L MCV 84.7 MCH 27.3 MCHC 32.3 RDW 17.1 H Plt Count 228 Neut % (Auto) 67.0 Lymph % (Auto) 15.8 L [place] % (Auto) 9.7 Eos % (Auto) 6.7 H Baso % (Auto) 0.8 Neut # (Auto) 5000 Lymph # (Auto) 1200 [place] # (Auto) 700 Eos # (Auto) 500 H Baso # (Auto) 100 Sodium 136 L Potassium 4.7 Chloride 106 Carbon Dioxide 26 BUN 55 H Creatinine 2.70 H Estimated GFR 23.2 L BUN/Creatinine Ratio 20.4 Glucose 135 H Calcium 8.5 Quality VTE Deep Vein Thrombosis/Pulmonary Embolism Present on Admission: No
--- NOTE | 2019-03-07 10:10 | PC.NURSE ---
Addendum entered by Shelly Adamson R.N. 03/07/19 12:48: Discharge instruction and education given to patient and his daughter. Patient taken out in wheelchair. Addendum entered by Shelly Adamson R.N. 03/07/19 11:12: Patient is A/Ox4, would like to do discharge education with daughter present. Tele removed, IV removed, catheter intact, site WNL. Patient tolerated well. Patient getting dressed. Original Note: Patient up to chair, down for Xray earlier. Transported via wheelchair. Patient is A/Ox4, denies SOB or increased SOB with activity. Patient is at 94% O2 on room air. Patients breathing is unlabored. Lung sounds clear bilaterally, diminished in right base. Thoracentesis site is free of redness, streaking or pain. Band-aid removed. Patient denies pain at this time. Reports last BM 03/04, refused PRN bowel regime d/t possible discharge. Patient also states this is normal for him. Bowel sounds are active, abdomen is soft and non-tender. Patient refused novolag this AM, would prefer to wait until lunch and see what his blood sugar is at that time. Patient is drinking coffee, understands this goes towards his fluid restriction. Call light in reach, denies further needs at this time.
--- NOTE | 2019-03-07 10:29 | PM.DS.1 ---
History of Present Illness History of Present Illness Date Patient Seen: 03/07/19 Time Patient Seen: 13:39 Chief complaint: SOB Narrative: Mauro Espino is a pleasant 73 y.o. male with multiple medical problems including hypertension, diabetes type 2, peripheral arterial disease and hyperlipidemia was in his usual state of health when he developed shortness of breath approximately 4 days ago which has been worsening. He is a non oxygen dependent male who had a complaint of exertional shortness of breath, fever and chills, chest pain that lasted for one hour and resolved, and urinary incontinence and retention. Denies cough, nausea or vomiting, or abdominal pain. He recently was discharged for having back surgery, a laminectomy of T11-12 done in [place] on January 22 of this year. He states he has a lot of neuropathy of his hands and feet, but is pain is significantly improved since the surgery. States his diabetes is under good control, stated his last A1c was 7.1. States he has had urinary dribbling and is in the process of obtaining a referral to a urologist for this. He states he has frequency but does not feel he empties completely and this is new. Discharge Providers Provider Date of admission: 03/02/19 18:57 Discharge Date: 03/07/19 Primary care physician: Luisito Logan MD Consults: 03/02/19 20:21 Consult to Respiratory Therapy Evaluate & Treat Comment: Physician Instructions: Evaluate and treat Discharge provider: Shandra Varghese MD Summary Hospital Course Discharge Diagnosis: 1. Acute hypoxemic respiratory failure 2. Bilateral pleural effusions 3. Acute kidney injury 3. BPH 4. Diabetes type 2 5. hypertension 6. PAD 7. Depression 8. Type 2 [place], secondary to demand. Hospital Course: Mr. Espino is a 73 year old male with PMH of DM, hypertension, COPD, PAD, and BPH who presented with dyspnea on exertion over the previous 4 days and was admitted for acute hypoxemic respiratory failure likely secondary to bilateral pleural effusions. 1. Acute hypoxemic respiratory failure, present on admission - new bilateral pleural effusions. These appear to be transudative bilateral pleural effusions on the initial thoracentesis testing. An add on rheumatoid factor test order was placed today. Elevated troponin of 0.026 which down trended. Echocardiogram showing concentric left ventricular hypertrophy with normal ejection fraction. BNP 1330, and chest x-ray shows improvement of bilateral hazy opacities. However he has no lower extremity edema, no JVD or hepato-jugular reflex and his symptoms have not improved much with Lasix. He was transition to p.o. Lasix mainly for elevated blood pressure as he did not appear volume overloaded. Approved liberalizing fluid restriction up to 2000 cc at home. 2. Bilateral pleural effusions, present on admission - Transudative on first results. Additional evaluation including culture are pending. -continue to diurese with low dose p.o. Lasix -rheumatoid factor testing ordered. Exact etiology of these bilateral pleural effusions remains just out of reach but testing suggests congestive heart failure. Repeat chest x-ray today showed continued right base pleural effusion and a small on a recurrence at the left base where he had more than 2000 mL drained few days ago. A pulmonology/cardiology consultation is suggested. I doubt lupus or rheumatoid as the cause. 3. Acute kidney injury with a creatinine of 1.8 on admission acute, present on admission -possibly secondary to fluid overload however echocardiogram was unremarkable as noted above. Renal ultrasound did not show evidence of hydronephrosis and patient was voiding adequately. Back up to 2.7 today. Previous normal lab value was from approximately 1 year ago. Given chronically elevated blood pressure this may be more chronic in nature as far as his initial lab value but he definitely has an acute jump yesterday and today. Renal US as noted above Avoid nephrotoxic medications and substances. Stop metformin. Hold lisinopril until primary care or Nephrology approve resuming Continue to monitor BMP with his primary care physician this week Consider Nephrology consult if creatinine worsens. 3. BPH, appears to be chronic, POA Patient has a pending referral to Urology Continue home terazosin 4. Diabetes type 2, chronic and uncontrolled with a new A1c of 7.8, POA Continue home dose of Lantus 10 units at bedtime. He has been significantly hypoglycemic and it turns out that he states his home dose is actually 10 units instead of the 40 that was recorded on admission. Hold metformin, resume Januvia and glimepiride. 5. hypertension, acute, uncontrolled, POA but improving Stop lisinopril and amlodipine. Continue Lasix, nifedipine and recheck blood pressure soon with primary care. 6. PAD, chronic and stable, POA Continue clopidogrel 75 mg po daily and asa 81 mg po daily 7. Depression, chronic and stable Continue duloxetine 20 mg po daily 8. Type 2 [place], secondary to demand given hypoxemic episode. Troponin did down trend. EKGs were unchanged from previous exams in June of 2017. Exam Vital Signs (past 8 hours): - 03/07/19 03:59 03/07/19 04:00 03/07/19 07:37 Temperature 98.0 F Pulse Rate 65 72 Respiratory Rate 19 12 Blood Pressure 144/54 H Pulse Oximetry 94 93 94 03/07/19 08:00 Temperature 98.1 F Pulse Rate 62 Respiratory Rate 20 Blood Pressure 149/57 H Pulse Oximetry 94 Fraction of Inspired Oxygen 21 Oxygen Delivery Method Nasal Cannula Oxygen Flow Rate 0 Narrative Exam Narrative: He is alert and oriented x3. He is sitting up in a chair looking quite spry today. Heart is regular rate and rhythm without murmur. Lungs are clear to auscultation bilaterally. Extremities have no ankle edema. Objective Labs Result Diagrams: 03/07/19 05:26 03/07/19 05:26 Labs: Laboratory Results - last 24 hr 03/07/19 03/07/19 05:26 05:26 WBC 7.4 RBC 3.46 L Hgb 9.5 L Hct 29.3 L MCV 84.7 MCH 27.3 MCHC 32.3 RDW 17.1 H Plt Count 228 Neut % (Auto) 67.0 Lymph % (Auto) 15.8 L [place] % (Auto) 9.7 Eos % (Auto) 6.7 H Baso % (Auto) 0.8 Neut # (Auto) 5000 Lymph # (Auto) 1200 [place] # (Auto) 700 Eos # (Auto) 500 H Baso # (Auto) 100 Sodium 136 L Potassium 4.7 Chloride 106 Carbon Dioxide 26 BUN 55 H Creatinine 2.70 H Estimated GFR 23.2 L BUN/Creatinine Ratio 20.4 Glucose 135 H Calcium 8.5 Discharge Plan Discharge Plan Patient Disposition: Home Discharge comment: [facility] with you [facility] very [facility]. You will need to also see a Preparation Room Worker. Do not take your Metformin and Lisinopril until your kidney function goes back to normal or your doctor approves. Your amlodipine has been changed to nifedipine. Discharge orders & Medications Prescriptions: New nifedipine 30 mg Tablet Extended Release 24hr 60 mg PO DAILY Qty: 30 RF: 0 furosemide 20 mg Tablet 20 mg PO DAILY Qty: 30 RF: 0 Continued albuterol sulfate [Ventolin HFA] 90 MCG/PUFF HFA aerosol inhaler 2 puff INH Q4HP PRN (Reason: Shortness Of Breath) Qty: 0 RF: 0 atorvastatin [Lipitor] 10 MG tablet 40 mg PO HS Qty: 0 RF: 0 Symbicort 160 MCG/4.5 MCG HFA aerosol inhaler 2 puff INH BID Qty: 0 RF: 0 duloxetine 20 MG capsule,delayed release(DR/EC) 60 mg PO HS Qty: 0 RF: 0 pregabalin [Lyrica] 50 MG capsule 75 mg PO BID Qty: 0 RF: 0 propranolol 10 MG tablet 10 mg PO TIDP PRN (Reason: Anxiety) Qty: 0 RF: 0 tiotropium bromide [Spiriva with HandiHaler] 18 MCG capsule, w/inhalation device 1 puff INH QDAY Qty: 0 RF: 0 metoprolol succinate 50 mg Tablet Extended Release 24 Hr 50 mg PO DAILY RF: 0 clopidogrel 75 mg Tablet 75 mg PO DAILY RF: 0 aspirin 81 mg Tablet,Delayed Release (Dr/Ec) 81 mg PO DAILY RF: 0 glimepiride 4 mg Tablet 4 mg PO BID RF: 0 omeprazole 20 mg Capsule,Delayed Release(Dr/Ec) 20 mg PO DAILY RF: 0 hydrochlorothiazide 25 mg Tablet 25 mg PO DAILY RF: 0 ferrous sulfate 325 mg (65 mg iron) Tablet 325 mg PO DAILY RF: 0 empagliflozin 10 mg Tablet 10 mg PO DAILY RF: 0 baclofen 10 mg Tablet 10 mg PO BID RF: 0 terazosin 1 mg Capsule 1 mg PO BEDTIME RF: 0 Changed Lantus U-100 Insulin 100 UNIT/1 ML solution 10 unit SQ HS Qty: 0 RF: 0 Discontinued amlodipine 10 MG tablet 10 mg PO QDAY Qty: 0 RF: 0 lisinopril 40 MG tablet 40 mg PO QDAY Qty: 0 RF: 0 metformin 1,000 MG tablet 1,000 mg PO BIDCC Qty: 0 RF: 0 Follow up/Referrals: Luisito Logan MD [Primary Care Provider] - Discharge Health Status Health Concerns: Please be careful not to drink more than 2 Liters of fluid everyday. Diet/Activity/Treatments Diet: Diet as Tolerated Visit Report/Discharge Packet Instructions: Smoking Cessation for Older Adults: It's Not Too Late!, DI for Heart Failure, DI for Thoracentesis, How to Prevent Falls, DI for Urinary Retention in Men, DI for Pleural Effusion Visit Report Forms: Patient Portal/API, Stroke Signs & Symptoms Discharge Data Primary Care Provider: Luisito Logan Discharges patient from system. Discharge Date/Time: 03/07/19 12:49 Quality VTE Deep Vein Thrombosis/Pulmonary Embolism Present on Admission: No
--- NOTE | 2019-03-07 10:31 | PM.DS.1 ---
History of Present Illness History of Present Illness Chief complaint: SOB Discharge Providers Provider Date of admission: 03/02/19 18:57 Primary care physician: Luisito Logan MD Consults: 03/02/19 20:21 Consult to Respiratory Therapy Evaluate & Treat Comment: Physician Instructions: Evaluate and treat Discharge provider: Shandra Varghese MD Exam Vital Signs (past 8 hours): - 03/07/19 03:59 03/07/19 04:00 03/07/19 07:37 Temperature 98.0 F Pulse Rate 65 72 Respiratory Rate 19 12 Blood Pressure 144/54 H Pulse Oximetry 94 93 94 03/07/19 08:00 Temperature 98.1 F Pulse Rate 62 Respiratory Rate 20 Blood Pressure 149/57 H Pulse Oximetry 94 Fraction of Inspired Oxygen 21 Oxygen Delivery Method Nasal Cannula Oxygen Flow Rate 0 Objective Labs Result Diagrams: 03/07/19 05:26 03/07/19 05:26 Labs: Laboratory Results - last 24 hr 03/07/19 03/07/19 05:26 05:26 WBC 7.4 RBC 3.46 L Hgb 9.5 L Hct 29.3 L MCV 84.7 MCH 27.3 MCHC 32.3 RDW 17.1 H Plt Count 228 Neut % (Auto) 67.0 Lymph % (Auto) 15.8 L [place] % (Auto) 9.7 Eos % (Auto) 6.7 H Baso % (Auto) 0.8 Neut # (Auto) 5000 Lymph # (Auto) 1200 [place] # (Auto) 700 Eos # (Auto) 500 H Baso # (Auto) 100 Sodium 136 L Potassium 4.7 Chloride 106 Carbon Dioxide 26 BUN 55 H Creatinine 2.70 H Estimated GFR 23.2 L BUN/Creatinine Ratio 20.4 Glucose 135 H Calcium 8.5 Discharge Plan Discharge Plan Patient Disposition: Home Discharge comment: [facility] with [facility]. You will need to also see a Instrument Room Technician. Do not take your Metformin and Lisinopril until your kidney function goes back to normal or your doctor approves. Your amlodipine has been changed to nifedipine. Discharge orders & Medications Prescriptions: New nifedipine 30 mg Tablet Extended Release 24hr 60 mg PO DAILY Qty: 30 RF: 0 furosemide 20 mg Tablet 20 mg PO DAILY Qty: 30 RF: 0 Continued albuterol sulfate [Ventolin HFA] 90 MCG/PUFF HFA aerosol inhaler 2 puff INH Q4HP PRN (Reason: Shortness Of Breath) Qty: 0 RF: 0 atorvastatin [Lipitor] 10 MG tablet 40 mg PO HS Qty: 0 RF: 0 Symbicort 160 MCG/4.5 MCG HFA aerosol inhaler 2 puff INH BID Qty: 0 RF: 0 duloxetine 20 MG capsule,delayed release(DR/EC) 60 mg PO HS Qty: 0 RF: 0 pregabalin [Lyrica] 50 MG capsule 75 mg PO BID Qty: 0 RF: 0 propranolol 10 MG tablet 10 mg PO TIDP PRN (Reason: Anxiety) Qty: 0 RF: 0 tiotropium bromide [Spiriva with HandiHaler] 18 MCG capsule, w/inhalation device 1 puff INH QDAY Qty: 0 RF: 0 metoprolol succinate 50 mg Tablet Extended Release 24 Hr 50 mg PO DAILY RF: 0 clopidogrel 75 mg Tablet 75 mg PO DAILY RF: 0 aspirin 81 mg Tablet,Delayed Release (Dr/Ec) 81 mg PO DAILY RF: 0 glimepiride 4 mg Tablet 4 mg PO BID RF: 0 omeprazole 20 mg Capsule,Delayed Release(Dr/Ec) 20 mg PO DAILY RF: 0 hydrochlorothiazide 25 mg Tablet 25 mg PO DAILY RF: 0 ferrous sulfate 325 mg (65 mg iron) Tablet 325 mg PO DAILY RF: 0 empagliflozin 10 mg Tablet 10 mg PO DAILY RF: 0 baclofen 10 mg Tablet 10 mg PO BID RF: 0 terazosin 1 mg Capsule 1 mg PO BEDTIME RF: 0 Changed Lantus U-100 Insulin 100 UNIT/1 ML solution 10 unit SQ HS Qty: 0 RF: 0 Discontinued amlodipine 10 MG tablet 10 mg PO QDAY Qty: 0 RF: 0 lisinopril 40 MG tablet 40 mg PO QDAY Qty: 0 RF: 0 metformin 1,000 MG tablet 1,000 mg PO BIDCC Qty: 0 RF: 0 Follow up/Referrals: Luisito Logan MD [Primary Care Provider] - Discharge Health Status Health Concerns: Please be careful not to drink more than 2 Liters of fluid everyday. Diet/Activity/Treatments Diet: Diet as Tolerated Visit Report/Discharge Packet Instructions: Smoking Cessation for Older Adults: It's Not Too Late!, DI for Heart Failure, DI for Thoracentesis, How to Prevent Falls, DI for Urinary Retention in Men, DI for Pleural Effusion Visit Report Forms: Stroke Signs & Symptoms Discharge Data Primary Care Provider: Luisito Logan VTE Deep Vein Thrombosis/Pulmonary Embolism Present on Admission: No
[2019-03-07 11:38] VITALS: O2SAT 95
--- NOTE | 2019-03-07 13:02 | CM.DPC ---
DCP: continued: Dr. Varghese did ok pt for d/c today. Pt requested records to take to his providers and Rn Shelly facilitated same. Pt left with his daughter for home.
== END 2019-03-07 12:49 | disposition home or self-care (01) | DRG 186 ==
LOC: ED 18:21 → AC 18:58
PROVIDERS: Family Medicine; Nurse Practitioner Adult Health; Nurse Practitioner Family; Admitting Provider Internal Medicine; Emergency Provider Emergency Medicine; PCP Family Medicine; Visit Provider Internal Medicine
DX: J90 Pleural effusion, not elsewhere classified (principal); J96.01 Acute respiratory failure with hypoxia; I21.A1 Myocardial infarction type 2; N17.9 Acute kidney failure, unspecified; R33.9 Retention of urine, unspecified; E11.65 Type 2 diabetes mellitus with hyperglycemia; I10 Essential (primary) hypertension; G25.81 Restless legs syndrome; E11.51 Type 2 diabetes mellitus with diabetic peripheral angiopathy without gangrene; F17.210 Nicotine dependence, cigarettes, uncomplicated; Z79.4 Long term (current) use of insulin; E78.5 Hyperlipidemia, unspecified; F32.9 Major depressive disorder, single episode, unspecified; N40.1 Benign prostatic hyperplasia with lower urinary tract symptoms
CPT/HCPCS: 32555; 36415; 36600; 51798; 71045; 71046; 71275; 76770; 80048; 80053; 80069; 81001; 82550; 82553; 82805; 82945; 82962; 83036; 83605; 83615; 83690; 83735; 83880; 83986; 84100; 84157; 84443; 84484; 85025; 85610; 85730; 87070; 87075; 87205; 89051; 93005; 93306; 94640; 94660; 94760; 94762; 96374; 96375; 99285; 99406; J1644; J1940; J2405; J2930; J7613; Q9967

== ENCOUNTER 2019-03-14 11:51 | Inpatient (IN) | payer OTHER, SELFPAY ==
[2019-03-02 20:21] VITALS: BMI 25.7
[2019-03-14] VITALS (10 sets, daily range): BP systolic 157–205; BP diastolic 68–91; PULSE 74–100; RESP 15–18; TEMP 36.7–37.2; O2SAT 78–92; BMI 26.0
[2019-03-14] MEDS: ALBUTEROL/IPRATROPIUM 3 ML AMPUL 6 ML INH (12:12)
--- NOTE | 2019-03-14 12:24 | DI.RAD.S_ITS ---
PROCEDURE: XR CHEST 1V INDICATIONS: shortness of breath TECHNIQUE: One view of the chest was acquired. COMPARISON: [facility], CR, XR CHEST 1V, 03/04/2019, 7:53. [facility], CR, XR CHEST 1V, 03/05/2019, 13:00. [facility], CR, XR CHEST 2V, 03/07/2019, 9:14. FINDINGS: Surgical changes and devices: None. Lungs and pleura: There is hyperinflation of the lungs with flattening of the hemidiaphragms compatible with COPD. There are persistent small bilateral pleural effusions which appear similar to the prior study. Medial bibasilar opacities are redemonstrated consistent with atelectasis, consolidation, or aspiration. No evidence of pneumothorax. Mediastinum: Mediastinal contours appear unchanged. Heart size is normal. Bones and chest wall: No suspicious bony lesions. Overlying soft tissues appear unremarkable. IMPRESSION: 1. Persistent small bilateral pleural effusions with medial bibasilar consolidation, atelectasis, or consolidation. 2. Findings compatible with COPD redemonstrated. Dictated by: Jonah Antoine M.D. on 03/14/2019 at 11:53 Approved by: Jonah Antoine M.D. on 03/14/2019 at 12:00
[2019-03-14 12:47] LABS: Add Manual Diff / Slide Review NO; Basophils Absolute Auto 100 /uL (0-100); Basophils Percent Auto 1.3 % (0-2); Eosinophils Absolute Auto 100 /uL (0-450); Eosinophils Percent Auto 2.2 % (2-4); Hemoglobin 10.3 g/dL (13.5-17.5); Lymphocytes Absolute Auto 700 /uL (1100-4500); Lymphocytes Percent Auto 9.8 % (25-40); Mean Corpuscular HGB Conc 32.2 % (30-36); Mean Corpuscular Hemoglobin 26.8 PG (26-34); Mean Corpuscular Volume 83.3 fL (80-100); Monocytes Absolute Auto 600 /uL (0-900); Monocytes Percent Auto 8.8 % (3-14); Neutrophils Absolute Auto 5200 /uL (1500-7000); Neutrophils Percent Auto 77.9 % (50-75); Platelet Count 269 X10^3/uL (150-400); Red Blood Cell Count 3.85 X10^6/uL (4.5-5.9); Red Cell Distribution Width 16.8 % (11.6-14.8); White Blood Cell Count 6.7 X10^3/uL (4.5-11.0)
[2019-03-14 12:56] LABS: Alanine Aminotransferase 10 IU/L (<50); Albumin 3.4 g/dL (3.5-5.0); Albumin Globulin Ratio 1.3 (1.0-2.8); Alkaline Phosphatase 111 U/L (38-126); Aspartate Aminotransferase 16 IU/L (17-59); BUN Creatinine Ratio 24.6 (6-22); Bilirubin Total 0.6 mg/dL (0.2-1.3); Blood Urea Nitrogen 32 mg/dL (9-20); Calcium 8.8 mg/dL (8.4-10.2); Carbon Dioxide 26 mmol/L (22-32); Chloride 104 mmol/L (98-107); Creatine Kinase 57 U/L (55-170); Estimated Glomerular Filt Rate 53.8 mL/min (>60); Globulin 2.7 g/dL (1.7-4.1); Glucose 201 mg/dL (80-110); HEMOLYSIS < 15 (0-50); Lipase 19 U/L (23-300); Potassium 4.3 mmol/L (3.4-5.1); Sodium 137 mmol/L (137-145); Total Protein 6.1 g/dL (6.3-8.2)
[2019-03-14 13:07] LABS: Troponin I 0.045 ng/mL (0.01-0.034)
[2019-03-14] MEDS: ASPIRIN 81 MG CHEW TAB 324 MG PO (13:12)
[2019-03-14] MEDS: SODIUM CHLORIDE 0.9% 1,000 ML 150 ML IV (13:12)
[2019-03-14 13:38] LABS: B Type Natriuretic Peptide 1430 (<100)
[2019-03-14] MEDS: ALBUTEROL/IPRATROPIUM 3 ML AMPUL INH ×2 (13:59→17:10)
[2019-03-14] MEDS: ALBUTEROL 2.5 MG/3 ML NEB (ADULT) INH (13:59)
--- NOTE | 2019-03-14 14:07 | RT ---
DR. HUBBARD AND RN UPDATED WITH PT STATUS.
--- NOTE | 2019-03-14 14:11 | ED_ITS ---
HPI - Chest Pain General Chief Complaint: Chest Pain Stated Complaint: sob/chest pain Time Seen by Provider: 03/14/19 11:57 Source: patient and family Mode of arrival: Wheelchair Limitations: no limitations History of Present Illness HPI narrative: Patient comes emergency department complaining of shortness of breath that has been going on over the last week. States he felt especially bad this morning and called his son to come over and see him. The son states that when he got there, the patient's face was jiang, and the patient's sats on room air were in the upper 70s to low 80s. Patient has a history of COPD, but is not on oxygen. He recently had a right pleural effusion drained on an inpatient stay, but was told there is no evidence of cancer. The patient is not known to have a history of CHF. He does have a history of renal insufficiency according to his son. The patient is also diabetic and has a history of hypertension. Patient denies ongoing chest pain, though this morning, he has had pain in his right lateral chest. Patient denies any fevers or chills. no productive cough. Patient has had moderate edema in his lower extremities which has been ongoing. No other complaints at this time. Review of patient's records reveals that the patient was just seen at the end of February for increasing shortness of breath with exertion and was diagnosed with congestive heart failure at that time. Related Data Home Medications Medication Instructions Recorded Confirmed Spiriva with HandiHaler 1 puff INH QDAY #0 07/04/17 03/14/19 Symbicort 2 puff INH BID #0 07/04/17 03/14/19 albuterol sulfate [Ventolin HFA] 2 puff INH Q4HP PRN #0 07/04/17 03/14/19 atorvastatin [Lipitor] 40 mg PO HS #0 07/04/17 03/14/19 duloxetine 60 mg PO HS #0 07/04/17 03/14/19 pregabalin [Lyrica] 75 mg PO BID #0 07/04/17 03/14/19 propranolol 10 mg PO TIDP PRN #0 07/04/17 03/14/19 aspirin 81 mg PO DAILY 02/05/18 03/14/19 clopidogrel 75 mg PO DAILY 02/05/18 03/14/19 glimepiride 4 mg PO BID 02/05/18 03/14/19 hydrochlorothiazide 25 mg PO DAILY 02/05/18 03/14/19 metoprolol succinate 50 mg PO DAILY 02/05/18 03/14/19 omeprazole 20 mg PO DAILY 02/05/18 03/14/19 baclofen 10 mg PO BID 03/03/19 03/14/19 empagliflozin 10 mg PO DAILY 03/03/19 03/14/19 ferrous sulfate 325 mg PO DAILY 03/03/19 03/14/19 terazosin 1 mg PO BEDTIME 03/03/19 03/14/19 amlodipine 10 mg PO DAILY 03/14/19 03/14/19 Previous Rx's Medication Instructions Recorded Lantus U-100 Insulin 10 unit SQ HS #0 ml 03/07/19 furosemide 20 mg PO DAILY #30 tab 03/07/19 nifedipine 60 mg PO DAILY #30 tab 03/07/19 Allergies Allergy/AdvReac Type Severity Reaction Status Date / Time itraconazole [From SPORANOX] Allergy Intermediate HIVES Verified 02/05/18 19:28 griseofulvin [GRISEOFULVIN] Allergy Unknown Verified 02/05/18 19:28 Review of Systems Constitutional Constitutional: Denies chills, Denies fatigue, Denies fever(s), Denies frequent falls, Denies lethargy and Denies weakness Eyes Eyes: Denies change in vision, Denies eye discharge, Denies irritation and Denies loss of vision ENT Ears, Nose, Mouth, and Throat: Denies change in voice, Denies dizziness, Denies neck pain, Denies sore throat and Denies throat swelling Cardiovascular Cardiovascular: Denies chest pain, Denies irregular heart rhythm, Denies lig htheadedness, Denies palpitations, Denies dyspnea, Denies dyspnea on exertion and Denies orthopnea Respiratory Respiratory: Denies cough, Denies dyspnea, Denies dyspnea on exertion and Denies wheezing Gastrointestinal Gastrointestinal: Denies abdominal pain, Denies change in bowel habits, Denies diarrhea, Denies nausea and Denies vomiting Genitourinary Genitourinary: Denies hematuria, Denies flank pain, Denies urinary incontinence and Denies urinary urgency Musculoskeletal Musculoskeletal: Denies back pain, Denies muscle weakness, Denies neck pain, Denies numbness and Denies tingling Integumentary/Breasts Skin/Breast: Denies pruritus, Denies erythema, Denies rash and Denies wounds Neurologic Neurologic: Denies behavioral changes, Denies confusion, Denies dizziness, Denies frequent falls, Denies loss of vision, Denies numbness, Denies tingling and Denies weakness Psychiatric Psychiatric: Denies anxiety, Denies behavioral changes, Denies confusion, Denies depression, Denies homicidal ideation and Denies suicidal ideation Endocrine Endocrine: Denies fatigue, Denies flushing and Denies palpitations Hematologic/Lymphatic Hematologic/Lymphatic: Denies easy bruising Allergic/Immunologic Allergic/Immunologic: Denies urticaria, Denies throat swelling and Denies wheezing Patient History Medical History Abnormal ankle brachial index (LANA) (07/14/17) Anxiety (Inactive ~2014) Anxiety (Chronic 2014) Chronic back pain (Inactive) Chronic bilateral low back pain (Chronic 07/14/17) Chronic obstructive pulmonary disease (Chronic 07/14/17) Claudication in peripheral vascular disease (Chronic) Colon polyps (Inactive ~2014) Colon polyps (Acute 2014) Depression (Inactive ~2014) Depression (Chronic 2014) Diabetes (Inactive) Essential hypertension (Chronic 07/14/17) Frequent headaches (Inactive) Gastrointestinal hemorrhage with melena (Resolved 07/14/17) Generalized headaches (Chronic) Hearing loss (Inactive ~2011) Hearing loss (Chronic 2011) Herniated disc (Inactive ~2010) Hyperlipemia (Chronic Unknown) Hyperlipidemia (Chronic) Pancreatitis (Inactive ~2009) Pancreatitis (Resolved 2009) Peripheral neuropathy (Inactive) Peripheral neuropathy (Chronic) Sleep apnea (Inactive ~2009) Sleep apnea (Chronic 2009) Type 2 diabetes mellitus with diabetic polyneuropathy, with long-term current use of insulin (Chronic 07/14/17) Weakness of both lower extremities (Chronic 07/14/17) Surgical History History of back surgery (Chronic) Family History Father Lung cancer Mother Colon cancer Social History marital status: household members: none pets and animals: Yes education level: high school 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) arpit/episcopal: [employer]anda[employer] seatbelt use: always water heater temp set < 120 deg: Yes working smoke detector in home: Yes fire extinguisher in home: No carbon monox detector in home: Yes firearms in home: No do you feel safe at home: Yes Smoking Status: Current every day smoker alcohol intake: never substance use type: does not use during the past year weight has: decreased > 10 lbs well-balanced diet: about half the time daily servings fruits/ve-1 caffeine: Yes eating out: 1-3 times/week Smoking Status: Current every day smoker Substance Use Type: marijuana Exam Initial Vital Signs Initial Vital Signs: Vital Signs Temperature 98.4 F 03/14/19 12:11 Pulse Rate 74 03/14/19 12:11 Respiratory Rate 18 03/14/19 12:11 Blood Pressure 192/68 H 03/14/19 12:11 Pulse Oximetry 78 L 03/14/19 12:11 Const General: cooperative and well developed Orientation: alert, awake, oriented x3 and not confused Other: Patient appears chronically ill, but in no apparent distress. HENMT Head: normocephalic and atraumatic Ears: external ears normal and TM's normal bilaterally Nose: external nose normal and No nasal discharge Face and sinus: sinuses nontender, face symmetric, no sinus tenderness and No dry mucous membranes Mouth: oral mucosae normal and moist mucous membranes Teeth and gingiva: dentition normal Throat: tonsils normal and uvula midline Eyes General: appearance normal, both eyes and all related structures Eyelids: eyelids normal Conjunctivae: conjunctivae normal Sclera: sclerae normal Pupils: PERRL EOM: EOM intact bilaterally Neck Neck: normal visual inspection, trachea midline, No lymphadenopathy, No midline deformity and No JVD Lymphatic: No lymphedema Chest Chest: normal inspection of the chest Resp Effort & Inspection: able to speak in complete sentences, labored (Mildly), no respiratory distress and no use of accessory muscles Auscultation: clear to auscultation bilaterally, diminished lung sounds on the right in the lower lung redd, no rales, no rhonchi and wheezes (Slight, upper lung redd) Cardio Rate: regular rate Rhythm: regular rhythm Heart Sounds: no click, no gallops, no murmurs and no rubs Pulses: normal peripheral pulses GI Inspection: non-distended Palpation: soft, no hepatosplenomegaly, No guarding, No pulsatile mass and No tender Auscultation: normal bowel sounds Back/Spine/Pelvis Back: No CVA tenderness Cervical Spine: cervical ROM normal and No pain with cervical ROM Thoracic/Lumbar Spine: thoracic and lumbar spine normal to inspection Skin General: no rashes or lesions noted, No jaundice and No petechiae Neuro General: alert, oriented x3, gait normal and no focal motor deficits Speech: speech normal Extrem General: full ROM, no clubbing, cyanosis or edema, no pedal edema and no calf tenderness Psych Appearance: well kempt Mental Status: mental status grossly normal Attitude: cooperative Thought Content: normal and suicidality Judgment: judgment good Course Course Course Narrative: Patient was worked up in the emergency department labs, EKG, and chest x-ray. Labs demonstrated a BNP of over 1400 and chest x-ray showed small bilateral pleural effusions but nothing else of an acute nature. I did not feel the patient's pleural effusions were large enough to indicate the need for thoracentesis. The patient was started on IV Lasix 40 mg and was also given an inch and half of nitroglycerin paste. He was also given 4 mg of morphine IV. I spoke with Dr. Coleman, who was the on-call for hospitalist, and he did agree to admit the patient to his service. I spoke with the patient and his son, who were agreeable to the plan. Orders Ordered: ED Orders 03/14/19 12:20 B Type Natriuretic Peptide Stat Complete Blood Count AUTO DIFF Stat Comprehensive Metabolic Panel Stat Lipase Stat Troponin & CK Cardiac Panel Stat 03/14/19 12:24 XR chest 1V Stat Acetaminophen (Tylenol) 650 mg PO Q6HR PRN PRN Reason: Fever/Mild Pain (1-3) Albuterol (Ventolin) 2.5 mg INH Q2H PRN PRN Reason: Shortness Of Breath Albuterol/Ipratropium (Duoneb) 3 ml INH [id number] [facility] Last Admin: 03/14/19 17:10 Dose: 3 ml Documented by: KUSHAL Aspirin (Aspirin Ec) 81 mg PO DAILY [facility] Atorvastatin Calcium (Lipitor) 40 mg PO BEDTIME [facility] Clopidogrel Bisulfate (Plavix) 75 mg PO DAILY [facility] Dextrose (D50w) 25 gm IV PRN PRN PRN Reason: Hypoglycemia Duloxetine HCl (Cymbalta) 60 mg PO BEDTIME [facility] Enoxaparin Sodium (Lovenox) 40 mg SUBCUT DAILY [facility] Ferrous Sulfate (Ferrous Sulfate) 325 mg PO DAILY [facility] Furosemide (Lasix) 40 mg IV Q12H [facility] Insulin Aspart (Novolog Flexpen) 0 unit SUBCUT ACHS [facility]; Protocol Last Admin: 03/14/19 17:58 Dose: 3 unit Documented by: LEROY Cosigned by: LEOLA Insulin Glargine (Lantus Solostar (Pen)) 10 unit SUBCUT 2100 [facility] Metoprolol Succinate (Toprol Xl) 50 mg PO DAILY [facility] Nifedipine (Procardia Xl) 60 mg PO DAILY [facility] Pantoprazole Sodium (Protonix) 20 mg PO 0700 [facility] Prednisone (Deltasone) 40 mg PO DAILY [facility] Pregabalin (Lyrica) 75 mg PO BID [facility] Terazosin HCl (Hytrin) 1 mg PO BEDTIME [facility] Discontinued Medications Albuterol (Ventolin) 2.5 mg INH NOW ONE Stop: 03/14/19 13:58 Last Admin: 03/14/19 13:59 Dose: 2.5 mg Documented by: KUSHAL Albuterol/Ipratropium (Duoneb) 6 ml INH NOW ONE Stop: 03/14/19 12:11 Last Admin: 03/14/19 12:12 Dose: 6 ml Documented by: KUSHAL Albuterol/Ipratropium (Duoneb) 3 ml INH NOW ONE Stop: 03/14/19 13:58 Last Admin: 03/14/19 13:59 Dose: 3 ml Documented by: KUSHAL Albuterol/Ipratropium (Duoneb) 3 ml INH RTBID [facility] Aspirin (Aspirin Chew) 324 mg PO NOW ONE Stop: 03/14/19 12:25 Last Admin: 03/14/19 13:12 Dose: 324 mg Documented by: KEILY Furosemide (Lasix) 80 mg IV NOW ONE Stop: 03/14/19 14:09 Last Admin: 03/14/19 17:56 Dose: Not Given Documented by: LEROY Furosemide (Lasix) 40 mg IV NOW ONE Stop: 03/14/19 14:10 Last Admin: 03/14/19 14:26 Dose: 40 mg Documented by: ASHLEY Sodium Chloride (Normal Saline 0.9%) 1,000 mls @ 150 mls/hr IV CONT [facility] Stop: 03/14/19 16:06 Last Admin: 03/14/19 13:12 Dose: 150 mls/hr Documented by: KEILY Dexamethasone 20 mg/ Sodium (Chloride) 52 mls @ 208 mls/hr IV NOW ONE Stop: 03/14/19 13:46 Last Admin: 03/14/19 17:56 Dose: Not Given Documented by: LEROY Dexamethasone 20 mg/ Sodium (Chloride) 52 mls @ 208 mls/hr IV NOW ONE Stop: 03/14/19 14:44 Last Admin: 03/14/19 14:56 Dose: 208 mls/hr Documented by: ASHLEY Insulin Aspart (Novolog Flexpen) 5 unit SUBCUT ACHS [facility]; Protocol Insulin Aspart (Novolog Flexpen) 0 unit SUBCUT ACHS [facility]; Protocol Insulin Aspart (Novolog Flexpen) 3 unit SUBCUT ACHS [facility]; Protocol Insulin Aspart (Novolog Flexpen) 3 unit SUBCUT ACHS [facility]; Protocol Insulin Glargine (Lantus Solostar (Pen)) 40 unit SUBCUT 2100 [facility] Morphine Sulfate (Morphine) 4 mg IV NOW ONE Stop: 03/14/19 14:30 Last Admin: 03/14/19 14:34 Dose: 4 mg Documented by: KEILY Nitroglycerin (Nitro-Bid) 1.5 inch TOP NOW ONE Stop: 03/14/19 14:30 Last Admin: 03/14/19 14:33 Dose: 1 inch Documented by: KEILY Vital Signs Vital signs: Vital Signs - 8 hr 03/14/19 12:11 03/14/19 12:12 03/14/19 13:35 Temperature 98.4 F Pulse Rate 74 74 82 Respiratory Rate 18 17 15 Blood Pressure 192/68 H Blood Pressure [Right Arm] 205/81 H Pulse Oximetry 78 L 91 92 03/14/19 13:59 Temperature Pulse Rate 87 Respiratory Rate Blood Pressure Blood Pressure [Right Arm] Pulse Oximetry 91 MDM - Chest Pain Medical Records Data Attestation: I reviewed the patient's medical records. Lab Data Attestation: I reviewed the patient's lab results. Result diagrams: 03/14/19 12:20 03/14/19 12:20 Labs: Lab Results 12/08/19 12/08/19 12/08/19 Range/Units 12:20 12:20 12:20 WBC 6.7 (4.5-11.0) X10^3/uL RBC 3.85 L (4.5-5.9) X10^6/uL Hgb 10.3 L (13.5-17.5) g/dL Hct 32.0 L (41-53) % MCV 83.3 (80-100) fL MCH 26.8 (26-34) PG MCHC 32.2 (30-36) % RDW 16.8 H (11.6-14.8) % Plt Count 269 (150-400) X10^3/uL Neut % (Auto) 77.9 H (50-75) % Lymph % (Auto) 9.8 L (25-40) % [place] % (Auto) 8.8 (3-14) % Eos % (Auto) 2.2 (2-4) % Baso % (Auto) 1.3 (0-2) % Neut # (Auto) 5200 (6433-7693) /uL Lymph # (Auto) 700 L (3927-5066) /uL [place] # (Auto) 600 (0-900) /uL Eos # (Auto) 100 (0-450) /uL Baso # (Auto) 100 (0-100) /uL Sodium 137 (137-145) mmol/L Potassium 4.3 (3.4-5.1) mmol/L Chloride 104 (98-107) mmol/L Carbon Dioxide 26 (22-32) mmol/L BUN 32 H (9-20) mg/dL Creatinine 1.30 H (0.66-1.25) mg/dL Estimated GFR 53.8 L (>60) mL/min BUN/Creatinine Ratio 24.6 H (6-22) Glucose 201 H (80-110) mg/dL Calcium 8.8 (8.4-10.2) mg/dL Total Bilirubin 0.6 (0.2-1.3) mg/dL AST 16 L (17-59) IU/L ALT 10 (<50) IU/L Alkaline Phosphatase 111 (38-126) U/L Total Creatine Kinase 57 (55-170) U/L CK-MB (CK-2) TNP CK-MB (CK-2) Rel Index TNP Troponin I 0.045 H (0.01-0.034) ng/mL B-Natriuretic Peptide 1430 H (<100) Total Protein 6.1 L (6.3-8.2) g/dL Albumin 3.4 L (3.5-5.0) g/dL Globulin 2.7 (1.7-4.1) g/dL Albumin/Globulin Ratio 1.3 (1.0-2.8) Lipase 19 L (23-300) U/L Imaging Data Chest x-ray: Radiologist's impression: PROCEDURE: XR CHEST 1V INDICATIONS: shortness of breath TECHNIQUE: One view of the chest was acquired. COMPARISON: [facility], CR, XR CHEST 1V, 03/04/2019, 7:53. [facility], CR, XR CHEST 1V, 03/05/2019, 13:00. [facility], CR, XR CHEST 2V, 03/07/2019, 9:14. FINDINGS: Surgical changes and devices: None. Lungs and pleura: There is hyperinflation of the lungs with flattening of the hemidiaphragms compatible with COPD. There are persistent small bilateral pleural effusions which appear similar to the prior study. Medial bibasilar opacities are redemonstrated consistent with atelectasis, consolidation, or aspiration. No evidence of pneumothorax. Mediastinum: Mediastinal contours appear unchanged. Heart size is normal. Bones and chest wall: No suspicious bony lesions. Overlying soft tissues appear unremarkable. IMPRESSION: 1. Persistent small bilateral pleural effusions with medial bibasilar consolidation, atelectasis, or consolidation. 2. Findings compatible with COPD redemonstrated. Dictated by: Jonah Antoine M.D. on 03/14/2019 at 11:53 Approved by: Jonah Antoine M.D. on 03/14/2019 at 12:00 ECG Data Attestation: I personally reviewed and interpreted this ECG as follows: (See below) Interpretation: Twelve lead EKG performed March 14, 2019 at 11:59 a.m., as follows: Regular ventricular rhythm with a rate of 74 beats per minute NV intervals 169 millisecond QRS duration 112 millisecond QTC intervals 445 millisecond Normal axis No significant ST T wave changes Interpretation: Normal sinus rhythm; occasional PVCs; probable septal [place], probably old; no signs of acute ischemia; abnormal EKG as interpreted by ED MD. Discharge Plan Departure Patient Disposition: Admitted As Inpatient Clinical Impression: CHF (congestive heart failure) Qualifiers: Heart failure type: unspecified Heart failure chronicity: acute on chronic Qualified Code(s): I50.9 - Heart failure, unspecified Chronic obstructive pulmonary disease Qualifiers: COPD type: COPD with acute exacerbation Qualified Code(s): J44.1 - Chronic obstructive pulmonary disease with (acute) exacerbation Discharge Date/Time: 03/14/19 15:00 Admit Date/Time: 03/14/19 14:29 Admit Provider: Chandan Coleman
[2019-03-14] MEDS: FUROSEMIDE 40 MG/4 ML VIAL IV ×2 (14:26→20:43)
[2019-03-14] MEDS: NITROGLYCERIN OINT 1 INCH/GM OINT...G. 1.5 INCH TOP (14:33)
[2019-03-14] MEDS: MORPHINE 4 MG/ML INJ IV (14:34)
[2019-03-14] MEDS: dexAMETHasone 20 MG in SODIUM CHLORIDE 0.9% 50 ML 208 ML IV (14:56)
--- NOTE | 2019-03-14 14:57 | PC.NURSE ---
Dexamethasone administered SIVP per Dr Ward.
--- NOTE | 2019-03-14 15:27 | PM.HP.1 ---
History of Present Illness History of Present Illness Date Patient Seen: 03/14/19 Chief complaint: sob/chest pain Narrative: Mr. Espino is a 73 year old male with PMH of DM, hypertension, COPD, PAD, and BPH, and possible diastolic heart failure who presented with shortness of breath. He had acute worsening this morning of his breathing and called his son to come see him. According to the son per ED documentation the patient's face was jiang and he was saturating in the upper 70s to low 80s on room air when EMS arrived. He had a recent hospitalization with acute hypoxemic respiratory failure and he was discharged approximately 1 week ago. During that stay he had a a pleural effusion that was drained which appeared to be transudative in origin consistent with possible heart failure. Echocardiogram done showed normal ejection fraction, and no mention of diastolic dysfunction. He was started on Lasix and nifedipine for elevated blood pressures. [facility]. They recommended that he stop his nifedipine and instead take amlodipine 10 mg. He was feeling well, but noted increasing shortness of breath over the past couple of days. Shortness of breath was mainly on exertion. Then this morning he was short of breath at rest and could not catch his breath even at rest. He also had some midsternal, sharp chest pain that resolved. He also states that he was slightly wheezy. He has had no changes in his cough or sputum production over the past 2 days, and he denies any fevers, muscle aches, joint pains, or runny nose. He further denies any dizziness, vision changes, headache, diaphoresis, palpitations. He does endorse lower extremity edema which started a few days ago. His son also noted that his face was swollen yesterday but was improved slightly today. In the emergency room, patient was hypertensive and saturating at 78% on room air. He improved with 3 L of oxygen into the low 90s. He was given 120 mg of IV Lasix in total, steroids, and nebulizer treatments. Labs were notable for a stable anemia with hemoglobin of 10.3, creatinine of 1.3 dramatically improved from his discharge creatinine. Glucose of 201, troponin of 0.045, BNP of 1430. EKG shows sinus rhythm with borderline anterior Q-waves but no evidence of acute ischemia. Chest x-ray showed stable bilateral pleural effusions and findings consistent with COPD including a flattened diaphragm. He was admitted to Medicine for acute hypoxemic respiratory failure likely secondary to decompensated diastolic heart failure. Patient History Medical History Abnormal ankle brachial index (LANA) (07/14/17) Anxiety (Inactive ~2014) Anxiety (Chronic 2014) Chronic back pain (Inactive) Chronic bilateral low back pain (Chronic 07/14/17) Chronic obstructive pulmonary disease (Chronic 07/14/17) Claudication in peripheral vascular disease (Chronic) Colon polyps (Inactive ~2014) Colon polyps (Acute 2014) Depression (Inactive ~2014) Depression (Chronic 2014) Diabetes (Inactive) Essential hypertension (Chronic 07/14/17) Frequent headaches (Inactive) Gastrointestinal hemorrhage with melena (Resolved 07/14/17) Generalized headaches (Chronic) Hearing loss (Inactive ~2011) Hearing loss (Chronic 2011) Herniated disc (Inactive ~2010) Hyperlipemia (Chronic Unknown) Hyperlipidemia (Chronic) Pancreatitis (Inactive ~2009) Pancreatitis (Resolved 2009) Peripheral neuropathy (Inactive) Peripheral neuropathy (Chronic) Sleep apnea (Inactive ~2009) Sleep apnea (Chronic 2009) Type 2 diabetes mellitus with diabetic polyneuropathy, with long-term current use of insulin (Chronic 07/14/17) Weakness of both lower extremities (Chronic 07/14/17) Surgical History History of back surgery (Chronic) Family & Social History Family History Father Lung cancer Mother Colon cancer Social History: household members none Safety & Behavioral: Feels Safe in Current Yes Environment Been Physically Hurt or No Threatened By a Person Tobacco & Substance use: Tobacco type cigarettes Smoking Status Current every day smoker alcohol intake never Substance Use Type marijuana Meds Home Medications and Allergies Home Medications Medication Instructions Recorded Confirmed Type Spiriva with HandiHaler 1 puff INH QDAY #0 07/04/17 03/14/19 History Symbicort 2 puff INH BID #0 07/04/17 03/14/19 History albuterol sulfate [Ventolin HFA] 2 puff INH Q4HP PRN #0 07/04/17 03/14/19 History atorvastatin [Lipitor] 40 mg PO HS #0 07/04/17 03/14/19 History duloxetine 60 mg PO HS #0 07/04/17 03/14/19 History pregabalin [Lyrica] 75 mg PO BID #0 07/04/17 03/14/19 History propranolol 10 mg PO TIDP PRN #0 07/04/17 03/14/19 History aspirin 81 mg PO DAILY 02/05/18 03/14/19 History clopidogrel 75 mg PO DAILY 02/05/18 03/14/19 History glimepiride 4 mg PO BID 02/05/18 03/14/19 History hydrochlorothiazide 25 mg PO DAILY 02/05/18 03/14/19 History metoprolol succinate 50 mg PO DAILY 02/05/18 03/14/19 History omeprazole 20 mg PO DAILY 02/05/18 03/14/19 History baclofen 10 mg PO BID 03/03/19 03/14/19 History empagliflozin 10 mg PO DAILY 03/03/19 03/14/19 History ferrous sulfate 325 mg PO DAILY 03/03/19 03/14/19 History terazosin 1 mg PO BEDTIME 03/03/19 03/14/19 History Lantus U-100 Insulin 10 unit SQ HS #0 ml 03/07/19 03/14/19 Rx furosemide 20 mg PO DAILY #30 tab 03/07/19 03/14/19 Rx nifedipine 60 mg PO DAILY #30 tab 03/07/19 03/14/19 Rx amlodipine 10 mg PO DAILY 03/14/19 03/14/19 History Allergies Allergy/AdvReac Type Severity Reaction Status Date / Time itraconazole [From SPORANOX] Allergy Intermediate HIVES Verified 02/05/18 19:28 griseofulvin [GRISEOFULVIN] Allergy Unknown Verified 02/05/18 19:28 Review of Systems Review of Systems Narrative: All other systems reviewed with the patient and are negative unless otherwise stated. Exam Vital Signs (past 8 hours): - 03/14/19 12:11 03/14/19 12:12 03/14/19 13:35 Temperature 98.4 F Pulse Rate 74 74 82 Respiratory Rate 18 17 15 Blood Pressure 192/68 H Blood Pressure [Right Arm] 205/81 H Pulse Oximetry 78 L 91 92 03/14/19 13:59 Temperature Pulse Rate 87 Respiratory Rate Blood Pressure Blood Pressure [Right Arm] Pulse Oximetry 91 Oxygen Delivery Method Nasal Cannula Oxygen Flow Rate 3.5 Narrative Exam Narrative: GENERAL APPEARANCE: Thin elderly male, moderately ill-appearing. Sitting comfortably in hospital bed on nasal cannula. SKIN: Inspection of the skin reveals no rashes, ulcerations or petechiae. HEENT: The sclerae were anicteric and conjunctivae were pink and moist. Extraocular movements were intact and pupils were equal, round with normal accommodation. External inspection of the ears and nose showed no scars, lesions, or masses. Lips, teeth, and gums showed normal mucosa. The oral mucosa, hard and soft palate, tongue and posterior pharynx were unremarkable. NECK: Supple and symmetric. There was no thyroid enlargement, and no tenderness, or masses were felt. No JVD or hepatojugular reflex. CHEST: Normal AP diameter and normal contour without any kyphoscoliosis. LUNGS: Auscultation of the lungs revealed decreased breath sounds on the left base, however no wheezes, rhonchi, or rales. CARDIOVASCULAR: There was a regular rate and rhythm without any murmurs, gallops, rubs. Peripheral pulses were 2+ and symmetric. ABDOMEN: Soft and nontender with normal bowel sounds. No ascites was noted. MUSCULOSKELETAL: There was no tenderness or effusions noted. Muscle strength and tone were normal. EXTREMITIES: No cyanosis, clubbing. He does have pitting pedal edema, worse on his left foot compared to his right but bilaterally. NEUROLOGIC: Alert and oriented x 3. Normal affect. Gait was normal. Strength is +5/5 in the Upper Extremities and Lower Extremities Bilaterally. Sensation to touch was normal. Objective Labs Result Diagrams: 03/14/19 12:20 03/14/19 12:20 Labs: Laboratory Results - last 24 hr 03/14/19 03/14/19 03/14/19 12:20 12:20 12:20 WBC 6.7 RBC 3.85 L Hgb 10.3 L Hct 32.0 L MCV 83.3 MCH 26.8 MCHC 32.2 RDW 16.8 H Plt Count 269 Neut % (Auto) 77.9 H Lymph % (Auto) 9.8 L [place] % (Auto) 8.8 Eos % (Auto) 2.2 Baso % (Auto) 1.3 Neut # (Auto) 5200 Lymph # (Auto) 700 L [place] # (Auto) 600 Eos # (Auto) 100 Baso # (Auto) 100 Sodium 137 Potassium 4.3 Chloride 104 Carbon Dioxide 26 BUN 32 H Creatinine 1.30 H Estimated GFR 53.8 L BUN/Creatinine Ratio 24.6 H Glucose 201 H Calcium 8.8 Total Bilirubin 0.6 AST 16 L ALT 10 Alkaline Phosphatase 111 Total Creatine Kinase 57 CK-MB (CK-2) TNP CK-MB (CK-2) Rel Index TNP Troponin I 0.045 H B-Natriuretic Peptide 1430 H Total Protein 6.1 L Albumin 3.4 L Globulin 2.7 Albumin/Globulin Ratio 1.3 Lipase 19 L Assessment & Plan Assessment & Plan narrative: Mr. Espino is a 73 year old male with PMH of DM, hypertension, COPD, PAD, and BPH who presented with shortness of breath. He is admitted for acute hypoxemic respiratory failure secondary to possible diastolic heart failure exacerbation, hypertensive urgency with flash edema, or COPD exacerbation. 1. Acute hypoxemic respiratory failure, present on admission -favor that his respiratory failure currently is due to diastolic heart failure exacerbation given elevated BNP and mild pedal edema. The other possibility is that with his blood pressure medication changes on Friday, he became more hypertensive and had pulmonary edema as result. He could also have a COPD exacerbation but believe this is less likely. His pleural effusions appear similar to radiograph prior to discharge, this is unlikely to cause his acute decompensation. - will treat for COPD exacerbation with prednisone 40 mg x4 additional days - continue duonebs and prn albuterol - hypertensive urgency as noted below - respiratory therapy eval and treat - continue lasix 40 mg IV BID - strict intake and output. - nursing home aide consultation - 2.0 L fluid restriction 2. Hypertensive urgency, acute, present on admission Patient's systolics were in the 200s in the ED. Patient had his nifedipine discontinued after discussion with [facility] physician and was re-started on amlodipine instead. Will resume nifedipine here and will need to coordinate with [facility] as, per the patient, they do not manage nifedipine. continue metoprolol 50 mg, lasix as noted above, and nifedipine. 3. Acute decompensated diastolic heart failure, present on admission -patient with elevated BNP. He was given 120 mg of IV Lasix in the ED. Echocardiogram done in last admission showed normal ejection fraction and no evidence of diastolic dysfunction but clinically the patient has an elevated BNP, dyspnea on exertion, and now pedal edema. -continue IV Lasix as noted above. - nursing home aide consult - strict intake and output. 4. Type 2 NC, secondary to demand given hypoxic episode. Troponin of 0.045 to rule out ACS, will repeat this evening. EKG nonischemic. 5. COPD, chronic, possible acute component as noted above, present on admission -continue steroid treatment as above for possible but unlikely COPD exacerbation -respiratory therapy eval and treat -continue duo nebs while inpatient with as needed albuterol 6. Bilateral pleural effusions, present on admission, stable -patient had thoracentesis done on prior admission. Etiology was transudative and these are most likely due to volume overload. This is consistent as well with diastolic heart failure. Imaging done on admission shows stable pleural effusions compared to radiograph prior to discharge. -continue to diurese as noted above 7. CKD III, present on admission -markedly improved creatinine of 1.3 today. During his previous admission his creatinine started at 1.8 and upon discharge she was in the 2s. - avoid nephrotoxic medications -continue to follow BMP 8. BPH, chronic, POA Patient has a pending referral to Urology Continue home terazosin Repeat bladder scan 9. Diabetes type 2, chronic, previous admission A1c of 7.8, POA Continue home dose of Lantus 40 units at bedtime, insulin correctional scale, and will continue with mealtime coverage Oral antidiabetics are being held 10. PAD, chronic and stable, POA Continue home dose of clopidogrel 75 mg po daily and asa 81 mg po daily 11. Depression, chronic and stable Continue home dose of duloxetine 20 mg po daily Code: Full, elects son as surrogate decision maker Dispo: Admitted as inpatient as his stay is expected to exceed 2 midnights DVT: Lovenox daily
--- NOTE | 2019-03-14 15:47 | PC.NURSE ---
Resp: Recieved from ED, O2 sats on 6L are 90-91%. Likes to keep hob elevated. Up to bathroom to void. BP 200's systolic in ED and he received NTG paste, recheck on floor shows a systolic of 150's. No c/p at this time and pt reports he is breathing easier. Report given to oncoming nurse.
[2019-03-14] MEDS: INSULIN ASPART 100 UNIT/ML INSULN PEN SUBCUT ×2 (17:58→21:11)
[2019-03-14 19:44] LABS: Troponin I 0.048 ng/mL (0.01-0.034)
[2019-03-14] MEDS: ATORVASTATIN 20 MG TABLET 40 MG PO (20:43)
[2019-03-14] MEDS: PREGABALIN 75 MG CAPSULE PO (20:43)
[2019-03-14] MEDS: SODIUM CHLORIDE 0.9% FLUSH 10 ML IV (20:44)
[2019-03-14] MEDS: INSULIN GLARGINE 100 UNIT/ML 3ML PEN 10 UNIT SUBCUT (21:11)
[2019-03-14] MEDS: TERAZOSIN 1 MG CAPSULE PO (21:13)
--- NOTE | 2019-03-14 23:22 | PC.NURSE ---
Addendum entered by Padmaja Molina R.N. 03/14/19 23:31: ... to call for assistance. call tinoco and phone within reach. Will continue to monitor. Original Note: Admission/Evening Shift Note-Patient arrived via stretcher from ER. Patient able to walk on his own from strether to bed. Admission questions done, medications reviewed, and physical assessment completed. Oriented patient to bed and bed controls, room, bathroom, lights, menu, phone, and call tinoco/tv remote. safety measures in place. bed alarm activated. patient agrees kamille
[2019-03-15] VITALS (18 sets, daily range): BP systolic 133–177; BP diastolic 50–86; PULSE 73–100; RESP 14–20; TEMP 36.7–37.2; O2SAT 86–99
--- NOTE | 2019-03-15 02:49 | PC.NURSE ---
Patient had prevoid bladder scan of 583. Patient tried to void, and could not. received order for one time straight cath. Patient has large scrotal edema size of large peach or small grapefruit. States he has noticed that his scrotum is larger at ties, and then it goes away.
[2019-03-15 05:19] LABS: Add Manual Diff / Slide Review NO; Basophils Absolute Auto 0 /uL (0-100); Basophils Percent Auto 0.2 % (0-2); Eosinophils Absolute Auto 0 /uL (0-450); Hematocrit 27.8 % (41-53); Hemoglobin 8.9 g/dL (13.5-17.5); Lymphocytes Absolute Auto 400 /uL (1100-4500); Lymphocytes Percent Auto 9.4 % (25-40); Mean Corpuscular HGB Conc 32.1 % (30-36); Mean Corpuscular Hemoglobin 26.9 PG (26-34); Mean Corpuscular Volume 83.6 fL (80-100); Monocytes Absolute Auto 100 /uL (0-900); Monocytes Percent Auto 3.2 % (3-14); Neutrophils Absolute Auto 3300 /uL (1500-7000); Neutrophils Percent Auto 87.2 % (50-75); Platelet Count 230 X10^3/uL (150-400); Red Blood Cell Count 3.33 X10^6/uL (4.5-5.9); Red Cell Distribution Width 16.8 % (11.6-14.8); White Blood Cell Count 3.8 X10^3/uL (4.5-11.0)
[2019-03-15 05:24] LABS: BUN Creatinine Ratio 25.8 (6-22); Blood Urea Nitrogen 31 mg/dL (9-20); Calcium 8.8 mg/dL (8.4-10.2); Carbon Dioxide 27 mmol/L (22-32); Chloride 101 mmol/L (98-107); Glucose 296 mg/dL (80-110); HEMOLYSIS < 15 (0-50); Magnesium 1.7 mg/dL (1.6-2.3); Phosphorous 3.9 mg/dL (2.3-3.7); Potassium 4.7 mmol/L (3.4-5.1); Sodium 133 mmol/L (137-145)
[2019-03-15] MEDS: PANTOPRAZOLE 20 MG TABLET PO (06:54)
[2019-03-15] MEDS: ALBUTEROL/IPRATROPIUM 3 ML AMPUL INH ×4 (08:49→19:17)
[2019-03-15 08:52] LABS: Troponin I 0.031 ng/mL (0.01-0.034)
[2019-03-15] MEDS: FUROSEMIDE 40 MG/4 ML VIAL IV ×2 (08:57→21:00)
[2019-03-15] MEDS: PREGABALIN 75 MG CAPSULE PO ×2 (08:58→21:06)
[2019-03-15] MEDS: METOPROLOL ER 50 MG TABLET PO (08:58)
[2019-03-15] MEDS: ASPIRIN EC 81 MG TABLET PO (08:58)
[2019-03-15] MEDS: FERROUS SULFATE 325 MG TABLET PO (08:58)
[2019-03-15] MEDS: INSULIN ASPART 100 UNIT/ML INSULN PEN SUBCUT ×4 (08:58→21:14)
[2019-03-15] MEDS: CLOPIDOGREL 75 MG TABLET PO (08:58)
[2019-03-15] MEDS: predniSONE 20 MG TABLET 40 MG PO (08:59)
[2019-03-15] MEDS: SODIUM CHLORIDE 0.9% FLUSH 10 ML IV ×2 (08:59→22:33)
[2019-03-15] MEDS: ENOXAPARIN 40 MG/0.4 ML SYRINGE SUBCUT (09:03)
[2019-03-15] MEDS: NIFEdipine 30 MG TAB ER 60 MG PO (09:08)
--- NOTE | 2019-03-15 11:18 | DIET.PN ---
Dietary Progress Note Assessment: Mr. Espino is a 73 year old male with PMH of DM, hypertension, COPD, PAD, and BPH, and possible diastolic heart failure who presented with shortness of breath. He had a recent hospitalization with acute hypoxemic respiratory failure and he was discharged approximately 1 week ago. He does not report and particular dietary restrictions. It was noted in patients EMR recent 10lb weight loss, however patient does not report any weight loss. He does have mild pedal edema and is currently on IV lasix and fluid restriction. He reports generally well controlled diabetes, but noticed a spike in BG with recent respiratory events. HT: 180.34 cm WT:83.9 kg IBW: 75.3 kg BMI: 25.8 Labs: Na: 133 L Gluc: 201, 296 AST: 16 L BNP: 1430 H Lipase: 19 pO2: 47 L (02/23) pCO2: 29.4 (02/23) MNA: 11 Sunil: 20 Nutrition Diagnosis: Altered nutrition related lab values related to cardiac, endocrine, and pulmonary disorders as evidenced by altered pO2/ pCO2, increased plasma glucose, edema, SOB, food and nutrition related knowledge deficit, dx diabetes. Interventions: 1. Reviewed patient current eating habits. Discussed importance of a healthy weight for heart health and good glucose control. 2. Discussed heart healthy nutrition therapy. Provided information on cutting down on sat/trans fats, cholesterol, and sodium and ways to increase fiber. Handouts provided. 3. Discussed the importance of good glucose control. Discussed carb containing foods and importance of increasing fiber intake. 4. Discussed reason for fluid restriction in decreasing edema. 5. Discussed patient smoking status. He understands the importance of quitting, particularly in recent events. Pt agreeable to trying smoking cessation. Diet Order: Heart Healthy/Cardiac, Fluid Restriction (2000 ml/day) EER: Calories: 2250 anne @ 30 anne/kg IBW; Pro:98-112g @ 1.3-1.5 g/kg IBW; CHO: 280 g @ 50% total anne Monitoring/Evaluations: Weight, PO intake, labs
--- NOTE | 2019-03-15 11:49 | CM.DANOTE ---
Patient is a 73 year old male CHALO who was admitted on 03/14/19 for SOB/Chest Pain. Pt has [employer] for insurance and his PCP is at the [facility]. EMR was reviewed. Per MD, pt with acute hypoxic respiratory failure and will provide diereses and monitor as he is not currently on oxygen but de-sats with mobility. Pt has multiple admits for similar, two in February 2019 and now this admission at the beginning of March 2019. Pt recently discharged on 03/07/19 home with supportive adult Dtr and adult son with no oxygen set up at home as it wasn't needed at d/c. SW met bedside with pt and explained role and pt confirms that he had been doing well at home since discharge until he couldn't breathe yesterday and was short of breath. Pt lives at home alone but his local adult son/DPSARA Chacon lives nearby and assists when needed and he confirmed that his adult Dtr has been here visiting detention the past 3 months and staying with him and assisting when needed and will continue to stay with pt a while longer. Pt confirms that he has not had HH set up and states that he manages ambulation without device at baseline and just recently had difficulties with mobility due to SOB/oxygen levels. Pt states he does not anticipate any needs at d/c and preference is home with family support when stable. Plan: SW to follow closely for further respiratory therapy assessment to determine if new home oxygen needed this time at d/c or if pt progresses for safe d/c home with family when stable. SW to follow for any further identified needs. ISRA Norton Discharge Planning/Care Management CM Discharge Assessment Start: 03/15/19 11:46 Freq: Status: Active Protocol: Document 03/15/19 11:47 BF (Rec: 03/15/19 11:49 BF [id number]) Discharge Planning Assessment Assigned Welfare Worker DESTINEE Mares/Assigned Designee Name marco a Chacon Contact Information [phone] Advance Directives? Yes History Provided By Patient,Medical Record Has Patient been admitted in last 30 Yes days? Comment Recently discharged home on with family support Prior Living Arrangements House Household Members none Type of transporation used prior to Relies on Others admit Comment Lives at home alone but has local son who lives nearby and Dtr currently visiting exterminator helper to assist pt Independent with ADL's Yes Is patient alert and oriented? Yes Needs Assistance With Home Chores / Shopping Caregiver for Another No Comment Likely home with possible new home oxygen needs pending progress Discharge Plan Home Transportation Arrangement Son or daughter Additional Comment Waiting to determine if new home oxygen needed Whiteboard Updated in Patient Room with Yes name and ext. # of Welfare Worker Review Status In Process Please Provide Date Initial DC 03/15/19 Assessment Was Performed Next Review Type Continued Stay Review
--- NOTE | 2019-03-15 11:54 | PM.PN.1 ---
Subjective Subjective Date Patient Seen: 03/15/19 Time Patient Seen: 09:10 Interval history: Mr. Espino is a 73 year old male with PMH of DM, hypertension, COPD, PAD, and BPH, and likely diastolic heart failure who presented with shortness of breath. He was admitted yesterday for acute hypoxemic respiratory failure. Overnight he needed to be straight cathed for obstruction, however this morning he voided with a postvoid residual of only 40 cc. He is improving today, but does not feel much better. He still complains of dyspnea on exertion. He is no longer on supplemental oxygen at rest, but desaturates when moving even in his hospital bed. He denies any fevers or chills, his cough remains the same. He denies any nausea, vomiting, or chest pain. His glucose remained in the 300s most of yesterday. Exam Vital Signs (past 8 hours): - 03/15/19 04:00 03/15/19 06:55 03/15/19 07:11 Temperature Pulse Rate 93 H 88 Respiratory Rate 18 Blood Pressure 139/80 Pulse Oximetry 92 92 99 03/15/19 08:00 03/15/19 08:28 03/15/19 08:49 Temperature 98.8 F Pulse Rate 83 96 H Respiratory Rate 16 18 Blood Pressure 170/80 H Pulse Oximetry 93 97 90 L 03/15/19 10:14 Temperature Pulse Rate 93 H Respiratory Rate Blood Pressure 153/76 H Pulse Oximetry Oxygen Delivery Method Room Air Oxygen Flow Rate 2 Narrative Exam Narrative: GENERAL APPEARANCE: Thin elderly male, in no acute distress. Sitting comfortably in hospital bed on room air. SKIN: Inspection of the skin reveals no rashes, ulcerations or petechiae. HEENT: The sclerae were anicteric and conjunctivae were pink and moist. Extraocular movements were intact and pupils were equal, round with normal accommodation. External inspection of the ears and nose showed no scars, lesions, or masses. Lips, teeth, and gums showed normal mucosa. The oral mucosa, hard and soft palate, tongue and posterior pharynx were unremarkable. NECK: Supple and symmetric. There was no thyroid enlargement, and no tenderness, or masses were felt. No JVD or hepatojugular reflex. CHEST: Normal AP diameter and normal contour without any kyphoscoliosis. LUNGS: Auscultation of the lungs revealed mild crackles in the left base, and a mild inspiratory wheeze that disappeared with cough. CARDIOVASCULAR: There was a regular rate and rhythm. Today there is a grade 2/6 systolic murmur loudest at the left 2nd intercostal space. Peripheral pulses were 2+ and symmetric. ABDOMEN: Soft and nontender with normal bowel sounds. No ascites was noted. MUSCULOSKELETAL: There was no tenderness or effusions noted. Muscle strength and tone were normal. EXTREMITIES: No cyanosis, clubbing. He does have pitting pedal edema, worse on his left foot compared to his right but bilaterally. NEUROLOGIC: Alert and oriented x 3. Normal affect. Strength is +5/5 in the Upper Extremities and Lower Extremities Bilaterally. Sensation to touch was normal. Objective Labs Result Diagrams: 03/15/19 04:45 03/15/19 04:45 Labs: Laboratory Results - last 24 hr 03/14/19 03/14/19 03/14/19 12:20 12:20 12:20 WBC 6.7 RBC 3.85 L Hgb 10.3 L Hct 32.0 L MCV 83.3 MCH 26.8 MCHC 32.2 RDW 16.8 H Plt Count 269 Neut % (Auto) 77.9 H Lymph % (Auto) 9.8 L [place] % (Auto) 8.8 Eos % (Auto) 2.2 Baso % (Auto) 1.3 Neut # (Auto) 5200 Lymph # (Auto) 700 L [place] # (Auto) 600 Eos # (Auto) 100 Baso # (Auto) 100 Sodium 137 Potassium 4.3 Chloride 104 Carbon Dioxide 26 BUN 32 H Creatinine 1.30 H Estimated GFR 53.8 L BUN/Creatinine Ratio 24.6 H Glucose 201 H Calcium 8.8 Phosphorus Magnesium Total Bilirubin 0.6 AST 16 L ALT 10 Alkaline Phosphatase 111 Total Creatine Kinase 57 CK-MB (CK-2) TNP CK-MB (CK-2) Rel Index TNP Troponin I 0.045 H B-Natriuretic Peptide 1430 H Total Protein 6.1 L Albumin 3.4 L Globulin 2.7 Albumin/Globulin Ratio 1.3 Lipase 19 L 03/14/19 03/15/19 03/15/19 19:03 04:45 04:45 WBC 3.8 L RBC 3.33 L Hgb 8.9 L Hct 27.8 L MCV 83.6 MCH 26.9 MCHC 32.1 RDW 16.8 H Plt Count 230 Neut % (Auto) 87.2 H Lymph % (Auto) 9.4 L [place] % (Auto) 3.2 Eos % (Auto) 0.0 L Baso % (Auto) 0.2 Neut # (Auto) 3300 Lymph # (Auto) 400 L [place] # (Auto) 100 Eos # (Auto) 0 Baso # (Auto) 0 Sodium 133 L Potassium 4.7 Chloride 101 Carbon Dioxide 27 BUN 31 H Creatinine 1.20 Estimated GFR 59.0 L BUN/Creatinine Ratio 25.8 H Glucose 296 H Calcium 8.8 Phosphorus 3.9 H D Magnesium 1.7 Total Bilirubin AST ALT Alkaline Phosphatase Total Creatine Kinase CK-MB (CK-2) CK-MB (CK-2) Rel Index Troponin I 0.048 H B-Natriuretic Peptide Total Protein Albumin Globulin Albumin/Globulin Ratio Lipase 03/15/19 04:45 WBC RBC Hgb Hct MCV MCH MCHC RDW Plt Count Neut % (Auto) Lymph % (Auto) [place] % (Auto) Eos % (Auto) Baso % (Auto) Neut # (Auto) Lymph # (Auto) [place] # (Auto) Eos # (Auto) Baso # (Auto) Sodium Potassium Chloride Carbon Dioxide BUN Creatinine Estimated GFR BUN/Creatinine Ratio Glucose Calcium Phosphorus Magnesium Total Bilirubin AST ALT Alkaline Phosphatase Total Creatine Kinase CK-MB (CK-2) CK-MB (CK-2) Rel Index Troponin I 0.031 B-Natriuretic Peptide Total Protein Albumin Globulin Albumin/Globulin Ratio Lipase Assessment & Plan Assessment & Plan narrative: Mr. Espino is a 73 year old male with PMH of DM, hypertension, COPD, PAD, and BPH who presented with shortness of breath. He is admitted for acute hypoxemic respiratory failure secondary to possible diastolic heart failure exacerbation, hypertensive urgency with flash edema, or COPD exacerbation. 1. Acute hypoxemic respiratory failure, present on admission -favor that his respiratory failure currently is due to diastolic heart failure exacerbation given elevated BNP and mild pedal edema. The other possibility is that with his blood pressure medication changes on Friday, he became more hypertensive and had pulmonary edema as result. He could also have a COPD exacerbation but believe this is less likely. His pleural effusions appear similar to radiograph prior to discharge, this is unlikely to cause his acute decompensation. - will treat for COPD exacerbation with prednisone 40 mg x4 additional days - continue duonebs and prn albuterol - hypertensive urgency treated as noted below - respiratory therapy eval and treat - continue lasix 40 mg IV BID - strict intake and output. - tenterer consultation - 2.0 L fluid restriction 2. Hypertensive urgency, acute, present on admission Patient's systolics were in the 200s in the ED, which have now improved into the 150s this morning. Patient had his nifedipine discontinued after discussion with [place] physician and was re-started on amlodipine instead. Will resume nifedipine here and will need to coordinate with [place] upon discharge as, per the patient, they do not manage nifedipine. continue metoprolol 50 mg daily, lasix as noted above, and nifedipine. 3. Acute decompensated diastolic heart failure, present on admission -patient with elevated BNP. He was given 120 mg of IV Lasix in the ED. Echocardiogram done in last admission showed normal ejection fraction and no evidence of diastolic dysfunction but clinically the patient has an elevated BNP, dyspnea on exertion, and now pedal edema. -continue IV Lasix as noted above. - tenterer consult - strict intake and output. 4. Type 2 [place], secondary to demand given hypoxic episode, resolved. Troponin of 0.045 to rule out ACS, up trended to 0.048 and this morning's value has down trended. EKG nonischemic. 5. COPD, chronic, possible acute component as noted above, present on admission -continue steroid treatment as above for possible but unlikely COPD exacerbation -respiratory therapy eval and treat -continue duo nebs while inpatient with as needed albuterol 6. Bilateral pleural effusions, present on admission, stable -patient had thoracentesis done on prior admission. Etiology was transudative and these are most likely due to volume overload. This is consistent as well with diastolic heart failure. Imaging done on admission shows stable pleural effusions compared to radiograph prior to discharge. -continue to diurese as noted above 7. CKD III, present on admission -markedly improved creatinine of 1.3 today. During his previous admission his creatinine started at 1.8 and upon discharge she was in the 2s. - avoid nephrotoxic medications -continue to follow BMP 8. BPH, chronic, POA Patient has a pending referral to Urology Continue home terazosin Patient needed to be straight cathed x1 last night, however this morning he voided and his postvoid residual was only 40 cc. 9. Diabetes type 2, chronic, previous admission A1c of 7.8, POA Will increase Lantus to 20 units, reported home dose is 10 units. Continue Insulin correctional scale. Consider increasing mealtime coverage if no improvement. Oral antidiabetics are being held 10. PAD, chronic and stable, POA Continue home dose of clopidogrel 75 mg po daily and asa 81 mg po daily 11. Depression, chronic and stable Continue home dose of duloxetine 20 mg po daily Code: Full, elects son as surrogate decision maker Dispo: Admitted as inpatient as his stay is expected to exceed 2 midnights DVT: Lovenox daily Quality VTE Deep Vein Thrombosis/Pulmonary Embolism Present on Admission: No
--- NOTE | 2019-03-15 14:47 | PC.NURSE ---
Day shift: OK w/ Dr Coleman to stop the pre and post void bladder scans at this time. Continue strict I&O's..
[2019-03-15] MEDS: DULOXETINE 30 MG CAPSULE 60 MG PO (21:04)
[2019-03-15] MEDS: ATORVASTATIN 20 MG TABLET 40 MG PO (21:04)
[2019-03-15] MEDS: SENNOSIDES 8.6 MG TABLET PO (21:04)
[2019-03-15] MEDS: INSULIN GLARGINE 100 UNIT/ML 3ML PEN 20 UNIT SUBCUT (21:15)
[2019-03-15] MEDS: TERAZOSIN 1 MG CAPSULE PO (22:33)
[2019-03-16] VITALS (15 sets, daily range): BP systolic 113–153; BP diastolic 54–72; PULSE 73–92; RESP 16–20; TEMP 36.6–36.9; O2SAT 88–94
[2019-03-16 05:23] LABS: Add Manual Diff / Slide Review NO; Basophils Absolute Auto 0 /uL (0-100); Basophils Percent Auto 0.2 % (0-2); Eosinophils Absolute Auto 0 /uL (0-450); Hemoglobin 8.7 g/dL (13.5-17.5); Lymphocytes Absolute Auto 1100 /uL (1100-4500); Lymphocytes Percent Auto 9.1 % (25-40); Mean Corpuscular HGB Conc 32.1 % (30-36); Mean Corpuscular Hemoglobin 26.8 PG (26-34); Mean Corpuscular Volume 83.4 fL (80-100); Monocytes Absolute Auto 800 /uL (0-900); Monocytes Percent Auto 6.5 % (3-14); Neutrophils Absolute Auto 10100 /uL (1500-7000); Neutrophils Percent Auto 84.2 % (50-75); Platelet Count 243 X10^3/uL (150-400); Red Blood Cell Count 3.24 X10^6/uL (4.5-5.9)
[2019-03-16 05:41] LABS: BUN Creatinine Ratio 25.3 (6-22); Blood Urea Nitrogen 38 mg/dL (9-20); Carbon Dioxide 26 mmol/L (22-32); Chloride 100 mmol/L (98-107); Estimated Glomerular Filt Rate 45.6 mL/min (>60); Glucose 299 mg/dL (80-110); HEMOLYSIS < 15 (0-50); Magnesium 1.8 mg/dL (1.6-2.3); Phosphorous 3.7 mg/dL (2.3-3.7); Potassium 4.4 mmol/L (3.4-5.1); Sodium 134 mmol/L (137-145)
[2019-03-16] MEDS: ALBUTEROL/IPRATROPIUM 3 ML AMPUL INH ×4 (06:15→21:10)
[2019-03-16] MEDS: PANTOPRAZOLE 20 MG TABLET PO (06:29)
[2019-03-16] MEDS: NIFEdipine 30 MG TAB ER 60 MG PO (08:50)
[2019-03-16] MEDS: INSULIN ASPART 100 UNIT/ML INSULN PEN SUBCUT ×6 (08:51→21:24)
[2019-03-16] MEDS: FUROSEMIDE 40 MG/4 ML VIAL IV (08:54)
[2019-03-16] MEDS: SODIUM CHLORIDE 0.9% FLUSH 10 ML IV ×2 (08:54→21:35)
[2019-03-16] MEDS: predniSONE 20 MG TABLET 40 MG PO (08:55)
[2019-03-16] MEDS: FERROUS SULFATE 325 MG TABLET PO (08:55)
[2019-03-16] MEDS: CLOPIDOGREL 75 MG TABLET PO (08:55)
[2019-03-16] MEDS: METOPROLOL ER 50 MG TABLET PO (08:55)
[2019-03-16] MEDS: PREGABALIN 75 MG CAPSULE PO ×2 (08:55→21:22)
[2019-03-16] MEDS: ENOXAPARIN 40 MG/0.4 ML SYRINGE SUBCUT (08:55)
[2019-03-16] MEDS: ASPIRIN EC 81 MG TABLET PO (08:56)
--- NOTE | 2019-03-16 10:10 | DI.RAD.S_ITS ---
PROCEDURE: XR CHEST 1V INDICATIONS: leukocytosis, continued low O2, assess fluid status TECHNIQUE: One view of the chest was acquired. COMPARISON: [facility], CR, XR CHEST 1V, 03/14/2019, 12:38. FINDINGS: Surgical changes and devices: None. Lungs and pleura: Small bilateral pleural fluid collections. Consolidation in the mesial aspect of the left lung base which is increased compared to 03/14/2019. Patchy opacity is noted in the right lung base. Lungs are hyperinflated suggesting COPD. Mediastinum: Mediastinal contours appear normal. Heart size is normal. Bones and chest wall: No suspicious bony lesions. Overlying soft tissues appear unremarkable. IMPRESSION: 1. Small bilateral pleural fluid collections. Right-sided pleural fluid collection slightly increased in size compared to 03/14/2019. 2. Left basilar consolidation and patchy right lung base opacities which have increased in size compared to prior examination suspicious for progression of pneumonia. Dictated by: Sharon Montelongo MD, PhD on 03/16/2019 at 11:30 Approved by: Sharon Montelongo MD, PhD on 03/16/2019 at 11:31
--- NOTE | 2019-03-16 13:14 | P.PN_ITS ---
Subjective Subjective Date Patient Seen: 03/16/19 Time Patient Seen: 09:25 Interval history: Mr. Espino is a 73 year old male with PMH of DM, hypertension, COPD, PAD, and BPH, and likely diastolic heart failure who presented with shortness of breath. He was admitted yesterday for acute hypoxemic respiratory failure. He does not feel much better today. He still complains of dyspnea on exertion. He had some worsening shortness of breath overnight and this morning was back on nasal cannula. He denies any fevers or chills, his cough remains the same. He denies any nausea, vomiting, or chest pain. His glucose remained high yesterday. Repeat xray today done for a rising WBC count showed some increase in primarily his right sided opacities. He was started on antibiotics. Exam Vital Signs (past 8 hours): - 03/16/19 06:16 03/16/19 08:00 03/16/19 08:22 Temperature 98.4 F Pulse Rate 92 H Respiratory Rate 16 Blood Pressure 152/72 H Pulse Oximetry 91 88 L 90 L 03/16/19 10:04 03/16/19 11:37 03/16/19 12:15 Temperature Pulse Rate 90 90 Respiratory Rate 18 Blood Pressure Pulse Oximetry 89 L Oxygen Delivery Method Nasal Cannula Oxygen Flow Rate 2.5 Narrative Exam Narrative: GENERAL APPEARANCE: Thin elderly male, in no acute distress. Sitting comfortably in hospital bed on room air. SKIN: Inspection of the skin reveals no rashes, ulcerations or petechiae. HEENT: The sclerae were anicteric and conjunctivae were pink and moist. Extraocular movements were intact and pupils were equal, round with normal accommodation. External inspection of the ears and nose showed no scars, lesions, or masses. Lips, teeth, and gums showed normal mucosa. The oral mucosa, hard and soft palate, tongue and posterior pharynx were unremarkable. NECK: Supple and symmetric. There was no thyroid enlargement, and no tenderness, or masses were felt. No JVD or hepatojugular reflex. CHEST: Normal AP diameter and normal contour without any kyphoscoliosis. LUNGS: Auscultation of the lungs revealed mild crackles in the left base, and a mild inspiratory wheeze that disappeared with cough. CARDIOVASCULAR: There was a regular rate and rhythm. Today there is a grade 2/6 systolic murmur loudest at the left 2nd intercostal space. Peripheral pulses were 2+ and symmetric. ABDOMEN: Soft and nontender with normal bowel sounds. No ascites was noted. MUSCULOSKELETAL: There was no tenderness or effusions noted. Muscle strength and tone were normal. EXTREMITIES: No cyanosis, clubbing. He does have pitting pedal edema, worse on his left foot compared to his right but bilaterally. NEUROLOGIC: Alert and oriented x 3. Normal affect. Strength is +5/5 in the Upper Extremities and Lower Extremities Bilaterally. Sensation to touch was normal. Objective Labs Result Diagrams: 03/16/19 04:45 03/16/19 04:45 Labs: Laboratory Results - last 24 hr 03/16/19 03/16/19 04:45 04:45 WBC 12.0 H D RBC 3.24 L Hgb 8.7 L Hct 27.0 L MCV 83.4 MCH 26.8 MCHC 32.1 RDW 17.0 H Plt Count 243 Neut % (Auto) 84.2 H Lymph % (Auto) 9.1 L [place] % (Auto) 6.5 Eos % (Auto) 0.0 L Baso % (Auto) 0.2 Neut # (Auto) 77936 H Lymph # (Auto) 1100 [place] # (Auto) 800 Eos # (Auto) 0 Baso # (Auto) 0 Sodium 134 L Potassium 4.4 Chloride 100 Carbon Dioxide 26 BUN 38 H Creatinine 1.50 H Estimated GFR 45.6 L BUN/Creatinine Ratio 25.3 H Glucose 299 H Calcium 9.0 Phosphorus 3.7 Magnesium 1.8 Assessment & Plan Assessment & Plan narrative: Mr. Espino is a 73 year old male with PMH of DM, hypertension, COPD, PAD, and BPH who presented with shortness of breath. He is admitted for acute hypoxemic respiratory failure secondary to possible diastolic heart failure exacerbation, hypertensive urgency with flash edema, or COPD exacerbation. 1. Acute hypoxemic respiratory failure, present on admission -favor that his respiratory failure currently is due to diastolic heart failure exacerbation given elevated BNP and mild pedal edema. The other possibility is that with his blood pressure medication changes on Friday, he became more hypertensive and had pulmonary edema as result. He could also have a COPD exacerbation but believe this is less likely. His pleural effusions appear similar to radiograph prior to discharge, this is unlikely to cause his acute decompensation. - will treat for COPD exacerbation with prednisone 40 mg x4 additional days - continue duonebs and prn albuterol - hypertensive urgency improved, as noted below. - respiratory therapy eval and treat - mild rise in Cr, however given XR today still suspect volume overload and there is no rise in his bicarb to suggest contraction alkalosis. Continue Lasix 40 mg IV BID. - strict intake and output. - casting plug assembler consultation - 2.0 L fluid restriction - some increase in consolidations on imaging today, and rising WBC count will treat for possible pneumonia with zosyn for now, consider [employer] evaluation. 2. Hypertensive urgency, acute, present on admission, resolved Patient's systolics were in the 200s in the ED. Patient had his nifedipine discontinued after discussion with [place] physician and was re-started on amlodipine instead. Will resume nifedipine here and will need to coordinate with [place] as, per the patient, they do not manage nifedipine. continue metoprolol 50 mg, lasix as noted above, and nifedipine. 3. Acute decompensated diastolic heart failure, present on admission -patient with elevated BNP. He was given 120 mg of IV Lasix in the ED. Echocardiogram done in last admission showed normal ejection fraction and no evidence of diastolic dysfunction but clinically the patient has an elevated BNP, dyspnea on exertion, and now pedal edema. -continue IV Lasix as noted above. - casting plug assembler consult - strict intake and output. 4. Type 2 [place], secondary to demand given hypoxic episode. Resolved. Troponin of 0.045 which down-trended. 5. COPD, chronic, possible acute component as noted above, present on admission -continue steroid treatment as above for possible but unlikely COPD exa cerbation -respiratory therapy eval and treat -continue duo nebs while inpatient with as needed albuterol 6. Bilateral pleural effusions, present on admission, stable -patient had thoracentesis done on prior admission. Etiology was transudative and these are most likely due to volume overload. This is consistent as well with diastolic heart failure. Imaging done on admission shows stable pleural effusions compared to radiograph prior to discharge. -continue to diurese as noted above 7. CKD III, present on admission -markedly improved creatinine of 1.3 today. During his previous admission his creatinine started at 1.8 and upon discharge she was in the 2s. - avoid nephrotoxic medications -continue to follow BMP 8. BPH, chronic, POA Patient has a pending referral to Urology Continue home terazosin Patient is adequately voiding as confirmed by bladder scan. He did require strai ght cath x1 while inpatient. 9. Diabetes type 2, chronic, previous admission A1c of 7.8, POA - currently with uncontrolled sugars as an inpatient. Increased lantus to 25 units units at bedtime, insulin correctional scale, and will add mealtime coverage with 5 units. Oral antidiabetics are being held 10. PAD, chronic and stable, POA Continue home dose of clopidogrel 75 mg po daily and asa 81 mg po daily 11. Depression, chronic and stable Continue home dose of duloxetine 20 mg po daily Code: Full, elects son as surrogate decision maker Dispo: Admitted as inpatient as his stay is expected to exceed 2 midnights DVT: Lovenox daily Quality VTE Deep Vein Thrombosis/Pulmonary Embolism Present on Admission: No
[2019-03-16] MEDS: PIPERACILLIN-TAZO 3.375 GM/50 ML FROZ.PIGGY IV ×2 (13:26→21:23)
[2019-03-16] MEDS: SODIUM CHLORIDE 0.9% 250 ML 21 ML IV (13:30)
--- NOTE | 2019-03-16 16:16 | PT.IIE ---
Current Diagnoses Acute respiratory failure with hypoxia (03/14/19) Surgical History (Last Reviewed 03/14/19 @ 14:14 by Vanessa Ward MD) History of back surgery (Chronic) Medical History (Last Reviewed 03/14/19 @ 14:14 by Vanessa Ward MD) Abnormal ankle brachial index (LANA) (07/14/17) Anxiety (Inactive ~2014) Anxiety (Chronic 2014) Chronic back pain (Inactive) Chronic bilateral low back pain (Chronic 07/14/17) Chronic obstructive pulmonary disease (Chronic 07/14/17) Claudication in peripheral vascular disease (Chronic) Colon polyps (Inactive ~2014) Colon polyps (Acute 2014) Depression (Inactive ~2014) Depression (Chronic 2014) Diabetes (Inactive) Essential hypertension (Chronic 07/14/17) Frequent headaches (Inactive) Gastrointestinal hemorrhage with melena (Resolved 07/14/17) Generalized headaches (Chronic) Hearing loss (Inactive ~2011) Hearing loss (Chronic 2011) Herniated disc (Inactive ~2010) Hyperlipemia (Chronic Unknown) Hyperlipidemia (Chronic) Pancreatitis (Inactive ~2009) Pancreatitis (Resolved 2009) Peripheral neuropathy (Inactive) Peripheral neuropathy (Chronic) Sleep apnea (Inactive ~2009) Sleep apnea (Chronic 2009) Type 2 diabetes mellitus with diabetic polyneuropathy, with long-term current use of insulin (Chronic 07/14/17) Weakness of both lower extremities (Chronic 07/14/17) Physical Therapy Inpatient Evaluation/Re-Eval M1 PT/OT-IP Prior Functional Status Start: 03/16/19 15:07 Freq: NEEDED Status: Active Protocol: Document 03/16/19 15:54 AW (Rec: 03/16/19 16:15 AW [id number]) Medical Review Prior Functional Status Medical History Reviewed Yes Communication WNL Mobility and Gait Pt was ambulatory for household mobility without assistive device. He states he would stay close to furniture in his home for support. In the community, he used a SPC for shorter distances and a 4WW for longer distances. Activities of Daily Living and IADL's Independent. Pt does his own shopping and meal prep. He drives. Social History Household Members none Living Arrangements House Number of Floors (Floors) One Floor Number of Stairs To Enter/Railing? 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 He lives alone, but his son Oswaldo lives across the street. Pt states Oswaldo is taking online classes now and has been easy to contact and able to help often. M2 PT-IP Current Condition Start: 03/16/19 15:07 Freq: NEEDED Status: Active Protocol: Document 03/16/19 15:54 AW (Rec: 03/16/19 16:15 AW [id number]) Physical Therapy Current Condition Current Condition Evaluation Date 03/16/19 Treatment Diagnosis acute hypoxic respiratory failure, impaired mobility Precautions Other Precautions fluid restriction Weight Bearing Status Weight Bearing Status Full Weight Bearing M3 PT-IP Subjective Start: 03/16/19 15:07 Freq: NEEDED Status: Active Protocol: Document 03/16/19 15:54 AW (Rec: 03/16/19 16:15 AW [id number]) Subjective Physical Therapy Visit Type Type Initial Evaluation Visit Start Time 10:25 Visit Stop Time 10:52 Total Visit Minutes 27 Number of BARREL BRIDGE ASSEMBLER Visits 0 Physical Therapy Visit Comments Patient Comments Pt willing to participate with PT Patient Goals To feel better and have less trouble breathing Therapy Pain Assessment Pain When Pain Assessed During Mobility Pain Present Pain Present Pain Reported Location Lower Medial Chest Scale Used not quantified, but pt reports tight sensation with mobility Description Tightness,With Movement Pain Management Techniques Modification of Treatment,Re- positioning M4 PT-IP Mobility and Gait Start: 03/16/19 15:07 Freq: NEEDED Status: Active Protocol: Document 03/16/19 15:54 AW (Rec: 03/16/19 16:15 AW [id number]) PT-Bed Mobility Assessment Supine to Sit Supine to Sit Standby Assistance Scooting Scooting to Edge of Bed Standby Assistance PT-Transfer Assessment Sit to and From Stand Sit to and from Stand Standby Assistance,Use of Upper Extremities Equipment Transfer Assistive Device Gait Belt,Front Wheeled Walker Orthotic/Prosthetic Devices or Brace: No Transfers Transfer Destination Chair Transfer Technique pt ambulated with FWW Transfer Ability Level of Assist Standby Assistance,Use of Upper Extremities Comments Mobility Comments Pt completed bed mobility and transfers with FWW SBA. SpO2 was 92% on 2.5 L hydrated O2 at rest and dropped to 87% with mobility. Gait Assessment Gait Gait Assistance Required: Standby Assistance,Contact Guard Assist Distance (Feet) 15 Able to Maintain Weight Bearing Status Yes During Gait Assistive Devices Assistive Device Gait Belt,Front Wheeled Walker Orthotic/Prosthetic Devices or Brace: No Gait Deviations General Gait Pattern Decreased Stride Length, Decreased Feet Clearance, Flexed Trunk Factors Limiting Gait Function Factors Limiting Gait Function Decreased Activity Tolerance, Decreased Strength,Respiratory Distress Comments Gait Comments Pt reported sensation of chest tightness with all mobility which did not improve or worsen with ambulation. He walked 15 feet in the room including turns with FWW SBA. SpO2 never dropped below 87% with short bout ambulation on 2.5 liters per minute. Pt leaned heavily on the walker, requiring cues for upright posture. Stair Climbing Assessment Comments Stair Climbing Comments Not assessed. PT-Balance Assessment Sitting Balance and Reactions Static Sitting Balance Ability Good Dynamic Sitting Balance Ability Good Standing Balance and Reactions Static Standing Balance Ability Good Dynamic Standing Balance Ability Good Comments Other Balance Tests/Deviations/Treatment Pt able to march in place with : bilateral fingertip support on walker M5 PT-IP Objective Assessments Start: 03/16/19 15:07 Freq: NEEDED Status: Active Protocol: Document 03/16/19 15:54 AW (Rec: 03/16/19 16:15 AW [id number]) Orientation Orientation/Cognition Level of Alertness Alert Orientation Name,Month,Place,Situation Language Function Ability No Deficits Noted Safety Awareness Understands Safety Issues Memory Description No Deficits Noted Gross Range of Motion Upper Extremity ROM Assessment Within Functional Limits Lower Extremity ROM Assessment Within Functional Limits Strength Upper Extremity Strength Assessment Within Functional Limits Lower Extremity Strength Assessment Bilaterally Impaired Hip 4-/5 Knee 4/5 Ankle 4/5 Sensation Assessment Sensation Gross Sensation Right LE Impaired,Left LE Impaired Light Touch Impaired Sensation Description Tingling Comments Sensation Comments Peripheral neuropathy affecting bilateral lower extremities in a stocking distribution. M6 PT-IP Treatment Start: 03/16/19 15:07 Freq: NEEDED Status: Active Protocol: Document 03/16/19 15:54 AW (Rec: 03/16/19 16:15 AW [id number]) Physical Therapy Treatment Other Treatments Other Treatment Performed Educated pt on PT plan of care , pursed lip breathing, and safe use of FWW. M7 PT-IP Assessment and Plan Start: 03/16/19 15:07 Freq: NEEDED Status: Active Protocol: Document 03/16/19 15:54 AW (Rec: 03/16/19 16:15 AW [id number]) PT Summary Assessment and Plan Potential Rehabilitation Potential Good Status of Condition at Evaluation Stable Summary Impairments Strength,Balance,Sensation, Transfers,Gait,Activity Tolerance Assessment Summary Mauro is a 73 yo man seen for PT evaluation two days after admission with AHRF and diastolic heart failure exacerbation. At baseline, he is a limited community ambulator, requiring SPC or 4WW for distances up to a few blocks. He admits to being largely immobile over the past few months due to difficulty with breathing. On evaluation, pt required SBA to CGA for all mobility, maintaining SpO2 in the high 80's on 2.5 LPM hydrated O2 while moving. He will benefit from continued acute PT to advance his mobility. At this time, PT recommends discharge to home with assistance and home health when medically stable. Pt will likely require home health to address strength impairments and to increase his safety/independence in the home. Goals Bed Mobility Goal Independent Transfer Goal Independent,Front Wheeled Walker Gait Goal Standby Assistance,Front Wheel Walker Gait Distance 150 feet with SpO2 88% or greater Other Goals up/down 3 steps with left rail ascending SBA. Days to Meet Goals 5 Frequency of Treatment Frequency Of Treatment Once a Day Treatment Plan Physical Therapy Treatment Plan Bed Mobility Training,Transfer Training,Gait Training, Therapeutic Exercise,Balance Retraining,Discharge Planning Other Recommendations and Next Treatment progress gait, monitor vitals, Focus trial stairs if able Recommendations To Nursing Amount of Assist Needed Standby Assistance,1 Person Assist Discharge Recommendations PT Discharge Recommendations Home with Assistance,Home Health
[2019-03-16] MEDS: FUROSEMIDE 20 MG TABLET PO (17:48)
[2019-03-16] MEDS: DULOXETINE 30 MG CAPSULE 60 MG PO (21:22)
[2019-03-16] MEDS: ATORVASTATIN 20 MG TABLET 40 MG PO (21:22)
[2019-03-16] MEDS: TERAZOSIN 1 MG CAPSULE PO (21:22)
[2019-03-16] MEDS: INSULIN GLARGINE 100 UNIT/ML 3ML PEN 25 UNIT SUBCUT (21:23)
[2019-03-16] MEDS: SENNOSIDES 8.6 MG TABLET PO (21:23)
--- NOTE | 2019-03-16 23:57 | PC.NURSE ---
the 100 at 2335 was end of evening water
[2019-03-17] VITALS (14 sets, daily range): BP systolic 143–164; BP diastolic 64–84; PULSE 71–91; RESP 16–22; TEMP 36.6–37.3; O2SAT 87–95
[2019-03-17] MEDS: PIPERACILLIN-TAZO 3.375 GM/50 ML FROZ.PIGGY IV ×3 (05:15→20:58)
[2019-03-17 05:35] LABS: Add Manual Diff / Slide Review NO; Basophils Absolute Auto 0 /uL (0-100); Basophils Percent Auto 0.1 % (0-2); Eosinophils Absolute Auto 0 /uL (0-450); Hematocrit 26.6 % (41-53); Hemoglobin 8.7 g/dL (13.5-17.5); Lymphocytes Absolute Auto 900 /uL (1100-4500); Lymphocytes Percent Auto 9.8 % (25-40); Mean Corpuscular HGB Conc 32.7 % (30-36); Mean Corpuscular Hemoglobin 27.1 PG (26-34); Mean Corpuscular Volume 82.8 fL (80-100); Monocytes Absolute Auto 500 /uL (0-900); Monocytes Percent Auto 5.3 % (3-14); Neutrophils Absolute Auto 8000 /uL (1500-7000); Neutrophils Percent Auto 84.8 % (50-75); Platelet Count 246 X10^3/uL (150-400); Red Blood Cell Count 3.21 X10^6/uL (4.5-5.9); White Blood Cell Count 9.4 X10^3/uL (4.5-11.0)
[2019-03-17 05:41] LABS: Blood Urea Nitrogen 40 mg/dL (9-20); Calcium 8.8 mg/dL (8.4-10.2); Carbon Dioxide 27 mmol/L (22-32); Chloride 98 mmol/L (98-107); Estimated Glomerular Filt Rate 42.3 mL/min (>60); Glucose 222 mg/dL (80-110); HEMOLYSIS < 15 (0-50); Magnesium 1.7 mg/dL (1.6-2.3); Phosphorous 3.5 mg/dL (2.3-3.7); Potassium 3.8 mmol/L (3.4-5.1); Sodium 133 mmol/L (137-145)
[2019-03-17] MEDS: PANTOPRAZOLE 20 MG TABLET PO (06:05)
[2019-03-17] MEDS: INSULIN ASPART 100 UNIT/ML INSULN PEN SUBCUT ×7 (08:24→21:05)
[2019-03-17] MEDS: METOPROLOL ER 50 MG TABLET PO (08:32)
[2019-03-17] MEDS: ENOXAPARIN 40 MG/0.4 ML SYRINGE SUBCUT (08:32)
[2019-03-17] MEDS: PREGABALIN 75 MG CAPSULE PO ×2 (08:32→20:58)
[2019-03-17] MEDS: FERROUS SULFATE 325 MG TABLET PO (08:33)
[2019-03-17] MEDS: predniSONE 20 MG TABLET 40 MG PO (08:34)
[2019-03-17] MEDS: CLOPIDOGREL 75 MG TABLET PO (08:34)
[2019-03-17] MEDS: ASPIRIN EC 81 MG TABLET PO (08:34)
[2019-03-17] MEDS: NIFEdipine 30 MG TAB ER 60 MG PO (08:34)
[2019-03-17] MEDS: FUROSEMIDE 20 MG TABLET PO (08:35)
[2019-03-17] MEDS: ALBUTEROL/IPRATROPIUM 3 ML AMPUL INH ×3 (09:04→19:32)
--- NOTE | 2019-03-17 11:10 | PC.NURSE ---
Assess- Patient is Alert and oriented x3. He denies pain. Mauro does become sob with exertion and ambulation. He worked with physical therapy and was able to do the stairs twice. Breath Sounds with lower lobe crackles, pt is on 2.5l of o2 and sats around 91-94%.
--- NOTE | 2019-03-17 11:16 | CM.DPC ---
Addendum entered by Trudy Arias R.N. 03/17/19 14:00: Met with patient in his room. Introduced self and role. Patient stated he thinks that [facility] Sterling. Patient stated that he was going to go to hospital outpatient through his [facility]. Had originally mentioned home health, but stated, he is not always homebound. Patient confirmed that he still drives. Spoke to respiratory therapy and they mentioned that they are attempting to wean him off of his therapy if possible. Will continue to follow for needs. Original Note: DCP Cont: Discussed patient at team rounds. He may need to go home with oxygen, respiratory therapy will consult. Discussed possibly getting home health for patient, for therapy. It is noted that patient goes to the [place] [facility] in [facility], but will need to obtain name of primary care provider. Patient sleeping at this time. Called some home health agencies to see if they take his [employer] med advantage. [facility] does not, they are not yet contracted, but [facility] does. P: DCP will continue to follow, have not yet discussed with patient, and face to face is not yet signed. Trudy Arias RN/Watch Parts Grinder
[2019-03-17] MEDS: SODIUM CHLORIDE 0.9% FLUSH 10 ML IV ×2 (12:02→20:59)
--- NOTE | 2019-03-17 13:50 | P.PN_ITS ---
Subjective Subjective Date Patient Seen: 03/17/19 Time Patient Seen: 10:15 Interval history: Mr. Espino is a 73 year old male with PMH of DM, hypertension, COPD, PAD, and BPH, and likely diastolic heart failure who presented with shortness of breath. He was admitted yesterday for acute hypoxemic respiratory failure. He does not feel much better today. He still complains of dyspnea on exertion. He denies any fevers or chills, his cough remains the same. He de nies any nausea, vomiting, or chest pain. His glucose remained high yesterday. His leukocytosis has improved with antibiotics. Exam Vital Signs (past 8 hours): - 03/17/19 08:00 03/17/19 09:15 03/17/19 10:54 Temperature 98.1 F Pulse Rate 77 91 H Respiratory Rate 17 18 Blood Pressure 161/84 H Pulse Oximetry 93 92 94 03/17/19 12:00 Temperature 98.0 F Pulse Rate 74 Respiratory Rate 16 Blood Pressure 164/80 H Pulse Oximetry 90 L Oxygen Delivery Method Nasal Cannula Oxygen Flow Rate 2 Narrative Exam Narrative: GENERAL APPEARANCE: Thin elderly male, in no acute distress. Sitting comfortably in hospital bed on room air. SKIN: Inspection of the skin reveals no rashes, ulcerations or petechiae. HEENT: The sclerae were anicteric and conjunctivae were pink and moist. Extra ocular movements were intact and pupils were equal, round with normal accommodation. External inspection of the ears and nose showed no scars, lesions, or masses. Lips, teeth, and gums showed normal mucosa. The oral mucosa, hard and soft palate, tongue and posterior pharynx were unremarkable. NECK: Supple and symmetric. There was no thyroid enlargement, and no tenderness, or masses were felt. No JVD or hepatojugular reflex. CHEST: Normal AP diameter and normal contour without any kyphoscoliosis. LUNGS: Auscultation of the lungs revealed mild crackles in the left base, and a mild inspiratory wheeze that disappeared with cough. CARDIOVASCULAR: There was a regular rate and rhythm. There is a grade 2/6 systolic murmur loudest at the left 2nd intercostal space. Peripheral pulses were 2+ and symmetric. ABDOMEN: Soft and nontender with normal bowel sounds. No ascites was noted. MUSCULOSKELETAL: There was no tenderness or effusions noted. Muscle strength and tone were normal. EXTREMITIES: No cyanosis, clubbing. He does have pitting pedal edema, worse on his left foot compared to his right but bilaterally. NEUROLOGIC: Alert and oriented x 3. Normal affect. Strength is +5/5 in the Upper Extremities and Lower Extremities Bilaterally. Sensation to touch was normal. Objective Labs Result Diagrams: 03/17/19 05:15 03/17/19 05:15 Labs: Laboratory Results - last 24 hr 03/17/19 03/17/19 05:15 05:15 WBC 9.4 RBC 3.21 L Hgb 8.7 L Hct 26.6 L MCV 82.8 MCH 27.1 MCHC 32.7 RDW 17.0 H Plt Count 246 Neut % (Auto) 84.8 H Lymph % (Auto) 9.8 L Fajardo % (Auto) 5.3 Eos % (Auto) 0.0 L Baso % (Auto) 0.1 Neut # (Auto) 8000 H Lymph # (Auto) 900 L Fajardo # (Auto) 500 Eos # (Auto) 0 Baso # (Auto) 0 Sodium 133 L Potassium 3.8 Chloride 98 Carbon Dioxide 27 BUN 40 H Creatinine 1.60 H Estimated GFR 42.3 L BUN/Creatinine Ratio 25.0 H Glucose 222 H Calcium 8.8 Phosphorus 3.5 Magnesium 1.7 Assessment & Plan Assessment & Plan narrative: Mr. Espino is a 73 year old male with PMH of DM, hypertension, COPD, PAD, and BPH who presented with shortness of breath. He is admitted for acute hypoxemic respiratory failure secondary to possible diastolic heart failure exacerbation, hypertensive urgency with flash edema, or COPD exacerbation. 1. Acute hypoxemic respiratory failure, present on admission -favor that his respiratory failure currently is due to diastolic heart failure exacerbation given elevated BNP and mild pedal edema. The other possibility is that with his blood pressure medication changes, he became more hypertensive and had pulmonary edema as result. He could also have a COPD exacerbation but believe this is less likely. His pleural effusions appear similar to radiograph prior to discharge, this is unlikely to cause his acute decompensation. His edema is improved now and his lungs are relatively clear, and he remains improved but still requires O2. He could have a chronic component due to his underlying COPD and so today he will be evaluated for home oxygen. - will treat for COPD exacerbation with prednisone 40 mg x 5 total days (today 07/10) - continue duonebs and prn albuterol - hypertensive urgency improved, as noted below. - respiratory therapy eval and treat - mild rise in Cr, and appears euvolemic today. Will change to oral lasix today. - strict intake and output. - environment friendly landscape designer consultation - 2.0 L fluid restriction - some increase in consolidations on imaging on HD#3, and rising WBC count treating for pneumonia with zosyn. Continue augmentin outpatient to complete 5 day total course (day 2/5 today) 2. Hypertensive urgency, acute, present on admission, resolved Patient's systolics were in the 200s in the ED. Patient had his nifedipine discontinued after discussion with [facility] physician and was re-started on amlodipine instead. Will resume nifedipine here and will need to coordinate with [facility] as, per the patient, they do not manage nifedipine. continue metoprolol 50 mg, lasix as noted above, and nifedipine. 3. Acute decompensated diastolic heart failure, present on admission -patient with elevated BNP. He was given 120 mg of IV Lasix in the ED. Echocardiogram done in last admission showed normal ejection fraction and no evidence of diastolic dysfunction but clinically the patient has an elevated BNP, dyspnea on exertion, and now pedal edema. - continue lasix PO now, appears euvolemic. - environment friendly landscape designer consult - strict intake and output. 4. Type 2 [place], secondary to demand given hypoxic episode. Resolved. Troponin of 0.045 which down-trended. 5. COPD, chronic, possible acute component as noted above, present on admission -continue steroid treatment as above for possible but unlikely COPD exacerbation -respiratory therapy eval and treat -continue duo nebs while inpatient with as needed albuterol -evaluation for home O2 6. Bilateral pleural effusions, present on admission, stable -patient had thoracentesis done on prior admission. Etiology was transudative and these are most likely due to volume overload. This is consistent as well with diastolic heart failure. Imaging done on admission shows stable pleural effusions compared to radiograph prior to discharge. - lasix as noted above 7. CKD III, present on admission - slight jump in his Cr, had improved to 1.3. Likely secondary to overdiuresis with IV lasix, have decreased to PO lasix today. - avoid nephrotoxic medications -continue to follow BMP 8. BPH, chronic, POA Patient has a pending referral to Urology Continue home terazosin Patient is adequately voiding as confirmed by bladder scan. He did require straight cath x1 while inpatient. 9. Diabetes type 2, chronic, previous admission A1c of 7.8, POA - currently with uncontrolled sugars as an inpatient. Increased lantus to 25 units units at bedtime, insulin correctional scale, and will add mealtime coverage with 5 units. Oral antidiabetics are being held 10. PAD, chronic and stable, POA Continue home dose of clopidogrel 75 mg po daily and asa 81 mg po daily 11. Depression, chronic and stable Continue home dose of duloxetine 20 mg po daily Code: Full, elects son as surrogate decision maker Dispo: Admitted as inpatient as his stay is expected to exceed 2 midnights DVT: Lovenox daily Quality VTE Deep Vein Thrombosis/Pulmonary Embolism Present on Admission: No
--- NOTE | 2019-03-17 14:52 | OT.IP.EVAL ---
Current Diagnoses Acute respiratory failure with hypoxia (03/14/19) Past Medical History (Last Reviewed 03/14/19 @ 14:14 by Vanessa Ward MD) Abnormal ankle brachial index (LANA) (07/14/17) Anxiety (Inactive ~2014) Anxiety (Chronic 2014) Chronic back pain (Inactive) Chronic bilateral low back pain (Chronic 07/14/17) Chronic obstructive pulmonary disease (Chronic 07/14/17) Claudication in peripheral vascular disease (Chronic) Colon polyps (Inactive ~2014) Colon polyps (Acute 2014) Depression (Inactive ~2014) Depression (Chronic 2014) Diabetes (Inactive) Essential hypertension (Chronic 07/14/17) Frequent headaches (Inactive) Gastrointestinal hemorrhage with melena (Resolved 07/14/17) Generalized headaches (Chronic) Hearing loss (Inactive ~2011) Hearing loss (Chronic 2011) Herniated disc (Inactive ~2010) Hyperlipemia (Chronic Unknown) Hyperlipidemia (Chronic) Pancreatitis (Inactive ~2009) Pancreatitis (Resolved 2009) Peripheral neuropathy (Inactive) Peripheral neuropathy (Chronic) Sleep apnea (Inactive ~2009) Sleep apnea (Chronic 2009) Type 2 diabetes mellitus with diabetic polyneuropathy, with long-term current use of insulin (Chronic 07/14/17) Weakness of both lower extremities (Chronic 07/14/17) Surgical History (Last Reviewed 03/14/19 @ 14:14 by Vanessa Ward MD) History of back surgery (Chronic) Occupational Therapy Inpatient Evaluation/Re-Eval M1 PT/OT-IP Prior Functional Status Start: 03/16/19 15:07 Freq: NEEDED Status: Active Protocol: Document 03/17/19 14:52 DIDI (Rec: 03/18/19 08:23 PJM [email or web address]) Medical Review Prior Functional Status Medical History Reviewed Yes Diet/Fluid Consistency Regular Communication WNL Mobility and Gait Pt was ambulatory for household mobility without assistive device. He states he would stay close to furniture in his home for support. In the community, he used a SPC for shorter distances and a 4WW for longer distances. Activities of Daily Living and IADL's Independent. Pt does his own shopping and meal prep. He drives. Prior Functional Level (Other details) His son and daughter live across the street and can assist PRN. His daughter can stay with him for few days after d/c to assist PRN. Social History Household Members none Living Arrangements House Number of Floors (Floors) One Floor Number of Stairs To Enter/Railing? 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 M2 OT-IP Current Condition Start: 03/18/19 08:08 Freq: Status: Active Protocol: Document 03/17/19 14:52 PJM (Rec: 03/18/19 08:23 PJM [email or web address]) Occupational Therapy Current Condition Current Condition Evaluation Date 03/17/19 Treatment Diagnosis decr'd activity tolerance, self care , mobility due to CHF/COPD exacerbation Diagnosis Onset Date 03/14/19 Post Operative Precautions Other Precautions monitor O2 sats M3 OT- IP Subjective and Pain Start: 03/18/19 08:08 Freq: Status: Active Protocol: Document 03/17/19 14:52 PJM (Rec: 03/18/19 08:23 PJM [email or web address]) OT- Subjective Occupational Therapy Visit Type Type Initial Evaluation Visit Start Time 14:26 Visit Stop Time 14:52 Total Visit Minutes 26 Occupational Therapy Visit Comments Patient Comments I think I might get to go home tomorrow. Patient/Caregiver Goals to return to independent living alone OT Pain Assessment Pain When Pain Assessed After Treatment Pain Present Pain Present Denied Pain M4 OT- IP ADL's Start: 03/18/19 08:08 Freq: Status: Active Protocol: Document 03/17/19 14:52 PJM (Rec: 03/18/19 08:23 PJM [email or web address]) OT [id number] General Evaluation Self-Feeding Ability Independent OT ADL-Grooming General Evaluation Grooming Ability Standby Assistance OT ADL-Oral Care General Eval Oral Care Ability Standby Assistance OT ADL-Dressing General Eval Upper Body Dressing Ability Independent Lower Body Dressing Ability Standby Assistance Areas Needing Assistance Socks Comments OT Dressing Comments Provided education re: body mechanics and adaptive equipt options to conserve energy. Recommend funding coordinator. OT ADL-Toileting General Evaluation Toileting Ability Independent OT ADL-Bathing Bathing Type Bathing Type Shower Comments OT Bathing Comments to be assessed; provided education re: bathroom safety equipt options to conserve energy. Recommend shower seat and long bath sponge, additional grab bars inside tub shower combo. M5 OT- IP IADL's Start: 03/18/19 08:08 Freq: Status: Active Protocol: Document 03/17/19 14:52 PJM (Rec: 03/18/19 08:23 PJ [email or web address]) OT-Instrumental Activities of Daily Living Deficits IADL Deficits Identified Deficits Home Safety Awareness Awareness of Need for Assistance at Home Good Awareness Ability to Problem Solve Emergency Able to Problem Solve Situations Medication Management Medication Management No Deficits Identified Money Management Money Management No Deficits Identified Meal Preparation Meal Preparation Caregiver Provides Assist Meal Preparation Comments son/daughter can assist PRN Floor Covering Installer Floor Covering Installer Caregiver Provides Assist Floor Covering Installer Comments daughter can assist PRN Driving Driving Caregiver Provides Assist Driving Comments son/daughter can assist PRN M6 OT- IP Functional Cognition Start: 03/18/19 08:08 Freq: Status: Active Protocol: Document 03/17/19 14:52 PJM (Rec: 03/18/19 08:23 [facility] [email or web address]) Cognitive Factors Limiting Selfcare Function Cognitive Ability Level of Alertness Alert Patient Orientation Name,Age,Birthday,Month,Date, Year,Day of Week,Place, Situation Attention Span Ability Capable of Focused Attention, Capable of Sustained Attention Ability to Follow Commands Able to Follow One Step Commands Memory Description No Deficits Noted Safety Awareness No Deficits Noted Cognitive Comments Cognitive Assessment Comments Pt verbalizes understanding of home safety issues including not smoking while on O2. He verbalizes and demonstrates understanding of basic energy conservation and pacing techniques. He is aware of trip hazard that may result from home O2 tubing. OT- Vision and Hearing OT- Hearing Assessment OT- Hearing Assessment WFL OT- Vision Assessment Visual Acuity Glasses All The Time M7 OT- IP Mobility and Balance Start: 03/18/19 08:08 Freq: Status: Active Protocol: Document 03/17/19 14:52 PJM (Rec: 03/18/19 08:23 [facility] [email or web address]) OT- Bed Mobility Assessment Rolling Type of Rolling Roll to Left Level of Assistance Standby Assistance,Head of Bed Elevated Supine to Sit Supine to Sit Assist Standby Assistance,Head of Bed Elevated Sit to Supine Sit to Supine Assist Standby Assistance,Head of Bed Elevated Scooting Scooting to Edge of Bed Independent OT-Transfer Assessment Comments Mobility Comments see P.T. notes OT- Gait Assessment Comments Gait Ability Comments see P.T. notes OT- Balance Assessment Sitting Balance and Reactions Static Sitting Balance Ability Good Dynamic Sitting Balance Ability Good Comments Other Balance Tests/Deviations/Treatment while donning socks EOB : M8 OT- IP Objective Assessments Start: 03/18/19 08:08 Freq: Status: Active Protocol: Document 03/17/19 14:52 PJM (Rec: 03/18/19 08:23 PJM [email or web address]) OT Gross Range of Motion Upper Extremity Range of Motion Assessment Within Functional Limits OT Strength Upper Extremity Strength Assessment Within Functional Limits OT- Coordination Assessment Comments Coordination Comments BUE WFL OT-Muscle Tone Assessment Muscle Tone WNL Yes OT Sensation Assessment Comments Summary Comments BUE WNL per pt Edema Edema Absent M9 OT- IP Assessment and Plan Start: 03/18/19 08:08 Freq: Status: Active Protocol: Document 03/17/19 14:52 PJM (Rec: 03/18/19 08:23 PJM [email or web address]) OT Summary Assessment and Plan Potential Rehabilitation Potential Good Analytic Complexity at Evaluation Low Summary OT Impairments Functional Mobility,Bathing, Shower Transfers Assessment Summary Low complexity OT assessment completed on this 73 yr old male admitted with COPD/CHF exacerbation. He will go home on O2 which is new for him. Pt presents with mild performance deficits in activity tolerance and higher level self care skills such as showering. Plan 1 additional OT visit for further education re: energy conservation and pacing. Pt may d/c home tomorrow with assist from son and pao who live across the street. Recommend followup services. Goals Dressing Goal Independent Bathing Goal Standby Assistance,Grab Bars, Hand Held Shower Sprayer,Long Handled Sponge or [place] Toilet Transfer Goal Independent Shower Transfer Goal Standby Assistance,Grab Bars Patient/Caregiver Education Goal Demonstrate Energy Conservation and Pacing Days to Meet Goals 1 Frequency of Treatment Frequency Of Treatment Once a Day Treatment Plan OT Treatment Plan ADL Training Discharge Recommendations OT Discharge Recommendations Home with Assistance Home Equipment Needs shower seat, long bath brush, funding coordinator
[2019-03-17] MEDS: FUROSEMIDE 40 MG TABLET PO (17:18)
[2019-03-17] MEDS: ATORVASTATIN 20 MG TABLET 40 MG PO (20:58)
[2019-03-17] MEDS: SENNOSIDES 8.6 MG TABLET PO (20:58)
[2019-03-17] MEDS: DULOXETINE 30 MG CAPSULE 60 MG PO (20:59)
[2019-03-17] MEDS: TERAZOSIN 1 MG CAPSULE PO (20:59)
[2019-03-17] MEDS: INSULIN GLARGINE 100 UNIT/ML 3ML PEN 25 UNIT SUBCUT (21:04)
--- NOTE | 2019-03-17 22:17 | PC.NURSE ---
[place] shift note: Upon arrival to shift this RN noted edema to right inner elbow and surrounding to tissue to IV site to Right AC. IV discontinued per policy, new IV site started to left forearm. No redness or tenderness. Elevation and ice pack provided, skin integrity intact. On reassessment of skin, noted redness, increased warmth and mild tenderness to left elbow and proximal left forearm, warm to touch, Notified Romeo PROCTOR. Elevation and ice pack in place, no streak or pain to palpation. No broken skin. Will continue to monitor closely.
[2019-03-18] VITALS (8 sets, daily range): BP systolic 163; BP diastolic 69–70; PULSE 77–95; RESP 18–20; TEMP 36.7; O2SAT 92–96
[2019-03-18] MEDS: POLYETHYLENE GLYCOL 3350 17 GM POWD.PACK PO (01:01)
[2019-03-18] MEDS: ALBUTEROL 2.5 MG/3 ML NEB (ADULT) INH (02:12)
[2019-03-18] MEDS: PIPERACILLIN-TAZO 3.375 GM/50 ML FROZ.PIGGY IV ×2 (04:51→14:10)
[2019-03-18] MEDS: SODIUM CHLORIDE 0.9% FLUSH 10 ML IV ×2 (04:51→08:01)
[2019-03-18] MEDS: SODIUM CHLORIDE 0.9% 250 ML 21 ML IV (04:52)
--- NOTE | 2019-03-18 05:41 | PC.NURSE ---
Pt reported increased SOB on transfer to BR. Interval lung sounds with increased wheeze in RLL. RT notified, PRn duoneb given and pt reported breathing improved with next trip to . Pt stated yesterday provider told him he possibly may discharge to home today with home o2. Denies pain, nausea. Left elbow puffiness decreased over course of night from PIV infiltration will con't to elevate arm. Pt maintaining 2L FWR. Constipation persists, gave PRN miralax overnight.
[2019-03-18 06:19] LABS: BUN Creatinine Ratio 24.7 (6-22); Blood Urea Nitrogen 37 mg/dL (9-20); Calcium 8.6 mg/dL (8.4-10.2); Carbon Dioxide 27 mmol/L (22-32); Chloride 102 mmol/L (98-107); Estimated Glomerular Filt Rate 45.6 mL/min (>60); Glucose 111 mg/dL (80-110); HEMOLYSIS < 15 (0-50); Magnesium 1.7 mg/dL (1.6-2.3); Potassium 3.6 mmol/L (3.4-5.1); Sodium 137 mmol/L (137-145)
[2019-03-18] MEDS: PANTOPRAZOLE 20 MG TABLET PO (06:33)
[2019-03-18] MEDS: CLOPIDOGREL 75 MG TABLET PO (08:00)
[2019-03-18] MEDS: PREGABALIN 75 MG CAPSULE PO (08:00)
[2019-03-18] MEDS: FERROUS SULFATE 325 MG TABLET PO (08:00)
[2019-03-18] MEDS: ASPIRIN EC 81 MG TABLET PO (08:00)
[2019-03-18] MEDS: ENOXAPARIN 40 MG/0.4 ML SYRINGE SUBCUT (08:00)
[2019-03-18] MEDS: predniSONE 20 MG TABLET 40 MG PO (08:00)
[2019-03-18] MEDS: METOPROLOL ER 50 MG TABLET PO (08:00)
[2019-03-18] MEDS: NIFEdipine 30 MG TAB ER 60 MG PO (08:00)
[2019-03-18] MEDS: FUROSEMIDE 40 MG TABLET PO (08:00)
[2019-03-18] MEDS: ALBUTEROL/IPRATROPIUM 3 ML AMPUL INH (09:33)
--- NOTE | 2019-03-18 09:35 | OT.IP.TRT ---
Current Diagnoses Acute respiratory failure with hypoxia (03/14/19) Occupational Therapy Treatment Note M3 OT- IP Subjective and Pain Start: 03/18/19 08:08 Freq: Status: Active Protocol: Document 03/18/19 09:35 PJM (Rec: 03/18/19 17:39 PJM [email or web address]) OT- Subjective Occupational Therapy Visit Type Type Treatment Note Visit Start Time 09:18 Visit Stop Time 09:35 Total Visit Minutes 17 Occupational Therapy Visit Comments Patient Comments I hope I get to go home today . Patient/Caregiver Goals to return to indep living in his own home OT Pain Assessment Pain When Pain Assessed After Treatment Pain Present Pain Present Denied Pain M4 OT- IP ADL's Start: 03/18/19 08:08 Freq: Status: Active Protocol: Document 03/18/19 09:35 PJM (Rec: 03/18/19 17:39 PJM [email or web address]) OT ADL-Grooming Comments OT Grooming Comments OT ADL-Dressing Comments OT Dressing Comments provided education re: energy conservation/pacing, recommend senior finance manager OT ADL-Bathing Comments OT Bathing Comments provided education re: energy conservation/pacing; recommend shower seat, long bath brush, grab bars M6 OT- IP Functional Cognition Start: 03/18/19 08:08 Freq: Status: Active Protocol: Document 03/18/19 09:35 PJM (Rec: 03/18/19 17:39 PJM [email or web address]) Cognitive Factors Limiting Selfcare Function Cognitive Ability Level of Alertness Alert Cognitive Comments Cognitive Assessment Comments Pt verbalizes and demonstrates understanding of energy conservation/pacing and pursed lip breathing techniques. He has oximeter at home. M9 OT- IP Assessment and Plan Start: 03/18/19 08:08 Freq: Status: Active Protocol: Document 03/18/19 09:35 PJM (Rec: 03/18/19 17:39 PJ [email or web address]) OT Summary Assessment and Plan Potential Rehabilitation Potential Good Summary Progress Towards Goals Safe For Discharge,Goals Met Assessment Summary All OT education completed today re: energy conservation/ pacing, pursed lip breathing, avoiding trip hazards, home safety with O2 and bathroom safety equip recommendations. Pt to d/c home today with 24 hr assist from daughter for first few days, then son and daughter across the street to assist PRN. Frequency of Treatment Frequency Of Treatment Discharge Discharge Recommendations OT Discharge Recommendations Home with 24/7 Assist Home Equipment Needs shower seat, long bath brush, senior finance manager, grab bars
--- NOTE | 2019-03-18 10:31 | PT.IPTN ---
Current Diagnoses Acute respiratory failure with hypoxia (03/14/19) Physical Therapy Treatment Note M2 PT-IP Current Condition Start: 03/16/19 15:07 Freq: NEEDED Status: Active Protocol: Document 03/16/19 15:54 AW (Rec: 03/16/19 16:15 AW [id number]) Physical Therapy Current Condition Current Condition Evaluation Date 03/16/19 Treatment Diagnosis acute hypoxic respiratory failure, impaired mobility Precautions Other Precautions fluid restriction Weight Bearing Status Weight Bearing Status Full Weight Bearing M3 PT-IP Subjective Start: 03/16/19 15:07 Freq: NEEDED Status: Active Protocol: Document 03/18/19 10:24 AMH (Rec: 03/18/19 10:26 [facility]H [email or web address]) Subjective Physical Therapy Visit Type Type Treatment Note Visit Start Time 09:55 Visit Stop Time 10:20 Total Visit Minutes 25 Number of LEASING COORDINATOR Visits 0 Physical Therapy Visit Comments Patient Comments Pt sitting up with respiritory and willing to participate with PT M4 PT-IP Mobility and Gait Start: 03/16/19 15:07 Freq: NEEDED Status: Active Protocol: Document 03/18/19 10:26 [facility]H (Rec: 03/18/19 10:29 [facility] [email or web address]) PT-Bed Mobility Assessment Supine to Sit Supine to Sit Standby Assistance Scooting Scooting to Edge of Bed Standby Assistance PT-Transfer Assessment Sit to and From Stand Sit to and from Stand Standby Assistance,Use of Upper Extremities Equipment Transfer Assistive Device Gait Belt,Front Wheeled Walker Orthotic/Prosthetic Devices or Brace: No Transfers Transfer Destination Chair Transfer Ability Level of Assist Standby Assistance,Use of Upper Extremities Comments Mobility Comments pt was in bed with 4 liters of 02 and was 87 o2 sats, respiritory was in the room working with him. When he sat up in bed his O2 sats increased to 89. O2 stayed at 89 during gait and was 89 once sitting at the end of treatment Gait Assessment Gait Gait Assistance Required: Standby Assistance,Contact Guard Assist Distance (Feet) 250 Able to Maintain Weight Bearing Status Yes During Gait Assistive Devices Assistive Device Gait Belt,Front Wheeled Walker Orthotic/Prosthetic Devices or Brace: No Gait Deviations General Gait Pattern Decreased Stride Length, Decreased Feet Clearance, Flexed Trunk Factors Limiting Gait Function Factors Limiting Gait Function Decreased Activity Tolerance, Decreased Strength,Respiratory Distress Comments Gait Comments pt ambulated approx 250 feet with 4 liters O2. His O2 sats stayed at 89 M5 PT-IP Objective Assessments Start: 03/16/19 15:07 Freq: NEEDED Status: Active Protocol: Document 03/16/19 15:54 AW (Rec: 03/16/19 16:15 AW [id number]) Orientation Orientation/Cognition Level of Alertness Alert Orientation Name,Month,Place,Situation Language Function Ability No Deficits Noted Safety Awareness Understands Safety Issues Memory Description No Deficits Noted Gross Range of Motion Upper Extremity ROM Assessment Within Functional Limits Lower Extremity ROM Assessment Within Functional Limits Strength Upper Extremity Strength Assessment Within Functional Limits Lower Extremity Strength Assessment Bilaterally Impaired Hip 4-/5 Knee 4/5 Ankle 4/5 Sensation Assessment Sensation Gross Sensation Right LE Impaired,Left LE Impaired Light Touch Impaired Sensation Description Tingling Comments Sensation Comments Peripheral neuropathy affecting bilateral lower extremities in a stocking distribution. M6 PT-IP Treatment Start: 03/16/19 15:07 Freq: NEEDED Status: Active Protocol: Document 03/18/19 10:24 [facility] (Rec: 03/18/19 10:26 [facility] [email or web address]) Physical Therapy Treatment Other Treatments Other Treatment Performed Reinforced instructions on pursed lip breathing and safe use of FWW during transfers and ambulation. Also worked on standing posture as pt tends to bend forward from the waist M7 PT-IP Assessment and Plan Start: 03/16/19 15:07 Freq: NEEDED Status: Active Protocol: Document 03/18/19 10:29 [facility] (Rec: 03/18/19 10:31 [facility] [email or web address]) PT Summary Assessment and Plan Potential Rehabilitation Potential Good Status of Condition at Evaluation Stable Summary Impairments Strength,Balance,Sensation, Transfers,Gait,Activity Tolerance Assessment Summary pt needed additional 4 liters of O2 today but he did better in a seated and standing position than he did with O2 sats in bed in supine position . No decline of O2 sats with gait this am with the 4 liters O2 Goals Bed Mobility Goal Independent Transfer Goal Independent,Front Wheeled Walker Gait Goal Standby Assistance,Front Wheel Walker Gait Distance 150 feet with SpO2 88% or greater Other Goals up/down 3 steps with left rail ascending SBA. Days to Meet Goals 5 Treatment Plan Physical Therapy Treatment Plan Bed Mobility Training,Transfer Training,Gait Training, Therapeutic Exercise,Balance Retraining,Discharge Planning Other Recommendations and Next Treatment progress gait, monitor vitals, Focus trial stairs if able Recommendations To Nursing Amount of Assist Needed 1 Person Assist Discharge Recommendations PT Discharge Recommendations Home with Assistance,Home Health
[2019-03-18] MEDS: INSULIN ASPART 100 UNIT/ML INSULN PEN SUBCUT ×2 (11:48→11:49)
--- NOTE | 2019-03-18 13:48 | PM.EVENT ---
Event Note Date Patient Seen: 03/18/19 Time Patient Seen: 11:00 Event Note: Patient was assessed for possible home oxygen today due to chronic hypoxemic respiratory failure from COPD. At rest, patient required 4 L through nasal cannula to maintain an oxygen saturation of 89%. He maintained the saturation upon ambulation again with 4 L as well.
--- NOTE | 2019-03-18 15:53 | CM.DPC ---
DCP Cont: Patient is being discharged today on home oxygen. Respiratory Therapy has been working on patient obtaining this for home. Patient originally did not think that he needed home health, but after he spoke to Dr. Coleman, and due to oxygen demands, is consenting to home health. After reviewing agencies, [facility] does take his insurance, [facility] does not. Spoke to Darrius at [facility] [facility] regarding referral, and faxed over face to face, history and physical, for discharge summary is pending, and orders. Patient will need nursing, P.T, and O.T. P: Patient is discharging home today on oxygen, and will be using [facility]. Trudy Arias RN/Pupil Personnel Services Director
--- NOTE | 2019-03-18 16:04 | PC.NURSE ---
Discharge Note- Patient D/C'ed home. DIscharge paperwork and instructions and education reviewed with paqtient and signed. IV removed and bandage applied. TELE monitor d/c'ed. Patient and familyn member packed up all personal belongings. Patientn left via wheelchair to private cart with all personal items and O2 tank with O2 set at 4L and nasal canula on at 1604.
--- NOTE | 2019-03-18 20:27 | PM.DS.1 ---
History of Present Illness History of Present Illness Chief complaint: sob/chest pain Narrative: Mr. Espino is a 73 year old male with PMH of DM, hypertension, COPD, PAD, and BPH, and possible diastolic heart failure who presented with shortness of breath. He had acute worsening this morning of his breathing and called his son to come see him. According to the son per ED documentation the patient's face was jiang and he was saturating in the upper 70s to low 80s on room air when EMS arrived. He had a recent hospitalization with acute hypoxemic respiratory failure and he was discharged approximately 1 week ago. During that stay he had a a pleural effusion that was drained which appeared to be transudative in origin consistent with possible heart failure. Echocardiogram done showed normal ejection fraction, and no mention of diastolic dysfunction. He was started on Lasix and nifedipine for elevated blood pressures. [facility]. They recommended that he stop his nifedipine and instead take amlodipine 10 mg. He was feeling well, but noted increasing shortness of breath over the past couple of days. Shortness of breath was mainly on exertion. Then this morning he was short of breath at rest and could not catch his breath even at rest. He also had some midsternal, sharp chest pain that resolved. He also states that he was slightly wheezy. He has had no changes in his cough or sputum production over the past 2 days, and he denies any fevers, muscle aches, joint pains, or runny nose. He further denies any dizziness, vision changes, headache, diaphoresis, palpitations. He does endorse lower extremity edema which started a few days ago. His son also noted that his face was swollen yesterday but was improved slightly today. In the emergency room, patient was hypertensive and saturating at 78% on room air. He improved with 3 L of oxygen into the low 90s. He was given 120 mg of IV Lasix in total, steroids, and nebulizer treatments. Labs were notable for a stable anemia with hemoglobin of 10.3, creatinine of 1.3 dramatically improved from his discharge creatinine. Glucose of 201, troponin of 0.045, BNP of 1430. EKG shows sinus rhythm with borderline anterior Q-waves but no evidence of acute ischemia. Chest x-ray showed stable bilateral pleural effusions and findings consistent with COPD including a flattened diaphragm. He was admitted to Medicine for acute hypoxemic respiratory failure likely secondary to decompensated diastolic heart failure. Discharge Providers Provider Date of admission: 03/14/19 14:29 Discharge Date: 03/18/19 Primary care physician: Luisito Logan MD Consults: 03/14/19 16:10 Consult to Respiratory Therapy Evaluate & Treat Comment: Physician Instructions: Evaluate and treat 03/14/19 16:11 Consult to Dietitian, Adult Routine Comment: Reason For Exam: weight loss approximately 10 pounds. 03/14/19 16:14 Consult to Respiratory Therapy Routine Comment: Physician Instructions: Evaluate and treat 03/16/19 10:09 Consult to Physical Therapy Evaluate & Treat Comment: Physician Instructions: Evaluate and Treat 03/17/19 10:07 Consult to Occupational Therapy Evaluate & Treat Comment: Physician Instructions: Evaluate and treat 03/18/19 15:41 Consult to Home Health Routine Comment: Reason For Exam: Home health RN, P.T, O.T. Discharge provider: Chandan Coleman DO Summary Hospital Course Discharge Diagnosis: 1. Acute on chronic hypoxemic respiratory failure, present on admission 2. Hypertensive urgency, acute, present on admission, resolved 3. Acute decompensated diastolic heart failure, present on admission, improved 4. Type 2 NJ, secondary to demand given hypoxic episode. Resolved. 5. COPD, chronic, possible acute component as noted above, present on admission 6. Bilateral pleural effusions, present on admission, stable 7. CKD III, present on admission - 8. BPH, chronic, POA 9. Diabetes type 2, chronic, previous admission A1c of 7.8, POA 10. PAD, chronic and stable, POA 11. Depression, chronic and stable Hospital Course: Mr. Espino is a 73 year old male with PMH of DM, hypertension, COPD, PAD, and BPH who presented with shortness of breath. He is admitted for acute hypoxemic respiratory failure secondary to possible diastolic heart failure exacerbation, hypertensive urgency with flash edema, or COPD exacerbation. He was diuresed as far as possible until his creatinine started to increase. He was transition then to oral Lasix. He still required supplemental oxygen. He continued to feel well and he was discharged home on home oxygen as he still required supplemental oxygen for chronic hypoxemic respiratory failure in the setting of COPD. He may be able to be weaned from oxygen as an outpatient. 1. Acute on chronic hypoxemic respiratory failure, present on admission - favor that his acute respiratory failure currently is due to diastolic heart failure exacerbation given elevated BNP and mild pedal edema. The other possibility is that with his blood pressure medication changes, he became more hypertensive and had pulmonary edema as result. He could also have a COPD exacerbation but believe this is less likely. His pleural effusions appear similar to radiograph prior to discharge, this is unlikely to cause his acute decompensation. His edema is improved now and his lungs are relatively clear, and he remains improved but still requires O2. He could have a chronic component due to his underlying COPD or he still may be overloaded secondary to heart failure. He was discharged on home oxygen. -patient completed prednisone x5 days while inpatient for COPD exacerbation -continue home regimen for COPD, with supplemental oxygen as noted above. - hypertensive urgency improved, as noted below. -appreciate respiratory therapy assistance in management -continue oral Lasix 40 mg p.o. b.i.d.. -patient was advised to stick to a 2 L fluid restriction and weigh himself daily and contact his primary care provider for assistance with management if his weight begins to rise. - some increase in consolidations on imaging on HD#3, and rising WBC count treating for pneumonia with zosyn. Patient to complete 3 total day course at home with Augmentin. 2. Hypertensive urgency, acute, present on admission, resolved Patient's systolics were in the 200s in the ED. Patient had his nifedipine discontinued [facility] discussion with [facility] and was re-started on amlodipine instead. Patient was restarted on nifedipine 60 mg daily, Lasix 40 mg b.i.d. and metoprolol 50 mg b.i.d. this resulted in decent control of his blood pressure and I do recommend that the patient can continue on this regimen. Unclear reasons why patient was unable to continue nifedipine is an outpatient, however I recommended that he either see a specialist or change primary care providers if there uncomfortable continuing nifedipine. I gave him a 90 day supply of this medication in order to give him time to follow-up with a provider that can prescribe this medication for him. 3. Acute decompensated diastolic heart failure, present on admission -patient with elevated BNP. He was given 120 mg of IV Lasix in the ED. Echocardiogram done in last admission showed normal ejection fraction and no evidence of diastolic dysfunction but clinically the patient has an elevated BNP, dyspnea on exertion, and now pedal edema. - continue lasix PO now, appears euvolemic. - folder machine operator consult - strict intake and output. 4. Type 2 NJ, secondary to demand given hypoxic episode. Resolved. Troponin of 0.045 which down-trended. 5. COPD, chronic, possible acute component as noted above, present on admission -steroid treatment as above for possible but unlikely COPD exacerbation -respiratory therapy assistance appreciated -resume outpatient COPD treatment with home inhalers -evaluation for home O2 as noted above. 6. Bilateral pleural effusions, present on admission, stable -patient had thoracentesis done on prior admission. Etiology was transudative and these are most likely due to volume overload. This is consistent as well with diastolic heart failure. Imaging done on admission shows stable pleural effusions compared to radiograph prior to discharge. - lasix as noted above 7. CKD III, present on admission - slight jump in his Cr, had improved to 1.3. Likely secondary to overdiuresis with IV lasix. This improves slightly when changed to oral Lasix, which the patient can continue at home. - avoid nephrotoxic medications 8. BPH, chronic, POA Patient has a pending referral to Urology Continue home terazosin Patient is adequately voiding as confirmed by bladder scan. He did require straight cath x1 while inpatient. 9. Diabetes type 2, chronic, previous admission A1c of 7.8, POA - currently with uncontrolled sugars as an inpatient. Increased lantus to 25 units units at bedtime, insulin correctional scale, and will add mealtime coverage with 5 units while inpatient. Patient should resume his home regimen upon discharge. 10. PAD, chronic and stable, POA Continue home dose of clopidogrel 75 mg po daily and asa 81 mg po daily 11. Depression, chronic and stable Continue home dose of duloxetine 20 mg po daily Code: Full, elects son as surrogate decision maker Dispo: Discharged home with home health in stable condition. Time Spent with Patient Time spent: Greater than 30 minutes Exam Vital Signs (past 8 hours): Oxygen Delivery Method Nasal Cannula Oxygen Flow Rate 4.5 Narrative Exam Narrative: GENERAL APPEARANCE: Thin elderly male, in no acute distress. Sitting comfortably in hospital bed on nasal cannula. SKIN: Inspection of the skin reveals no rashes, ulcerations or petechiae. HEENT: The sclerae were anicteric and conjunctivae were pink and moist. Extraocular movements were intact and pupils were equal, round with normal accommodation. External inspection of the ears and nose showed no scars, lesions, or masses. Lips, teeth, and gums showed normal mucosa. The oral mucosa, hard and soft palate, tongue and posterior pharynx were unremarkable. NECK: Supple and symmetric. There was no thyroid enlargement, and no tenderness, or masses were felt. No JVD or hepatojugular reflex. CHEST: Normal AP diameter and normal contour without any kyphoscoliosis. LUNGS: Auscultation of the lungs revealed no wheezes, rhonci, or rales today. Slightly diminished lung sounds at the left lung base. CARDIOVASCULAR: There was a regular rate and rhythm. There is a grade 2/6 systolic murmur loudest at the left 2nd intercostal space. Peripheral pulses were 2+ and symmetric. ABDOMEN: Soft and nontender with normal bowel sounds. No ascites was noted. MUSCULOSKELETAL: There was no tenderness or effusions noted. Muscle strength and tone were normal. EXTREMITIES: No cyanosis, clubbing. He does have pitting pedal edema, worse on his left foot compared to his right but bilaterally. NEUROLOGIC: Alert and oriented x 3. Normal affect. Strength is +5/5 in the Upper Extremities and Lower Extremities Bilaterally. Sensation to touch was normal. Objective Labs Result Diagrams: 03/17/19 05:15 03/18/19 05:30 Labs: Laboratory Results - last 24 hr 03/18/19 05:30 Sodium 137 Potassium 3.6 Chloride 102 Carbon Dioxide 27 BUN 37 H Creatinine 1.50 H Estimated GFR 45.6 L BUN/Creatinine Ratio 24.7 H Glucose 111 H D Calcium 8.6 Magnesium 1.7 Discharge Plan Discharge Plan Patient Disposition: Home Health Service Discharge comment: You were admitted to the hospital with shortness of breath. The etiology of why your short of breath is unclear, it could be due to a pneumonia, heart failure, or your COPD. You completed a course of antibiotics and steroids while admitted. You should continue to take the blood pressure medicines that you were given in the hospital as the seem to control your blood pressure is very well. You required supplemental oxygen at rest and will be discharged home with home oxygen at this time. We have set up a home health evaluation for nursing and physical therapy. You should continue to weigh yourself daily, and you may need to adjust your Lasix dosing if your weight either goes up or goes down. Please limit your fluid intake to 2 L total daily and limit your sodium intake to 2 g daily. This can be difficult but it is important for you. Your blood pressure was not controlled on amlodipine and you should continue nifedipine 60 mg daily. I've given you a 90 day supply of this medication, and if your primary care doctor is uncomfortable with this medication you may need a referral to a specialist or to find another primary care provider. Discharge orders & Medications Prescriptions: New furosemide 40 mg Tablet 40 mg PO BID 30 Days Qty: 60 RF: 0 nifedipine 60 mg tablet extended release 60 mg PO DAILY 90 Days Qty: 90 RF: 0 amoxicillin-pot clavulanate [Augmentin] 875-125 mg tablet 1 tab PO BID 3 Days Qty: 6 RF: 0 Continued albuterol sulfate [Ventolin HFA] 90 MCG/PUFF HFA aerosol inhaler 2 puff INH Q4HP PRN (Reason: Shortness Of Breath) Qty: 0 RF: 0 atorvastatin [Lipitor] 10 MG tablet 40 mg PO HS Qty: 0 RF: 0 Symbicort 160 MCG/4.5 MCG HFA aerosol inhaler 2 puff INH BID Qty: 0 RF: 0 duloxetine 20 MG capsule,delayed release(DR/EC) 60 mg PO HS Qty: 0 RF: 0 pregabalin [Lyrica] 50 MG capsule 75 mg PO BID Qty: 0 RF: 0 propranolol 10 MG tablet 10 mg PO TIDP PRN (Reason: Anxiety) Qty: 0 RF: 0 Spiriva with HandiHaler 18 MCG capsule, w/inhalation device 1 puff INH QDAY Qty: 0 RF: 0 metoprolol succinate 50 mg Tablet Extended Release 24 Hr 50 mg PO DAILY RF: 0 clopidogrel 75 mg Tablet 75 mg PO DAILY RF: 0 aspirin 81 mg Tablet,Delayed Release (Dr/Ec) 81 mg PO DAILY RF: 0 glimepiride 4 mg Tablet 4 mg PO BID RF: 0 omeprazole 20 mg Capsule,Delayed Release(Dr/Ec) 20 mg PO DAILY RF: 0 ferrous sulfate 325 mg (65 mg iron) Tablet 325 mg PO DAILY RF: 0 empagliflozin 10 mg Tablet 10 mg PO DAILY RF: 0 terazosin 1 mg Capsule 1 mg PO BEDTIME RF: 0 Lantus U-100 Insulin 100 UNIT/1 ML solution 10 unit SQ HS Qty: 0 RF: 0 Discontinued hydrochlorothiazide 25 mg Tablet 25 mg PO DAILY RF: 0 amlodipine 10 mg 10 mg PO DAILY RF: 0 baclofen 10 mg Tablet 10 mg PO BID RF: 0 nifedipine 30 mg Tablet Extended Release 24hr 60 mg PO DAILY Qty: 30 RF: 0 furosemide 20 mg Tablet 20 mg PO DAILY Qty: 30 RF: 0 Follow up/Referrals: Luisito Logan MD [Primary Care Provider] - Discharge Health Status Health Concerns: COPD Diastolic heart failure Diet/Activity/Treatments Diet: Diet as Tolerated and Low-sodium Diet comment: Limit liquid intake to 1.5 to 2 L daily. Activity: As tolerated with supplemental oxygen. Oxygen: 4L, please monitor home O2 with a finger monitor to keep level >88% Visit Report/Discharge Packet Instructions: DI for Heart Failure, DI for Oxygen Therapy -- Adult, How to Perform Oxygen Therapy via Cannula Discharge Data Primary Care Provider: Luisito Logan Discharges patient from system. Discharge Date/Time: 03/18/19 16:04 Quality VTE Deep Vein Thrombosis/Pulmonary Embolism Present on Admission: No
== END 2019-03-18 16:04 | disposition home health service (06) | DRG 280 ==
LOC: ED 14:21 → AC 14:31
PROVIDERS: Admitting Provider Internal Medicine; Emergency Provider Emergency Medicine; PCP Family Medicine; Visit Provider Internal Medicine
DX: I13.0 Hypertensive heart and chronic kidney disease with heart failure and stage 1 through stage 4 chronic kidney disease, or unspecified chronic kidney disease (principal); I21.A1 Myocardial infarction type 2; I50.33 Acute on chronic diastolic (congestive) heart failure; J96.21 Acute and chronic respiratory failure with hypoxia; J44.1 Chronic obstructive pulmonary disease with (acute) exacerbation; E11.22 Type 2 diabetes mellitus with diabetic chronic kidney disease; N18.3 Chronic kidney disease, stage 3 (moderate); E11.42 Type 2 diabetes mellitus with diabetic polyneuropathy; I73.9 Peripheral vascular disease, unspecified; I16.0 Hypertensive urgency; Z79.4 Long term (current) use of insulin; F17.210 Nicotine dependence, cigarettes, uncomplicated; E78.5 Hyperlipidemia, unspecified; F32.9 Major depressive disorder, single episode, unspecified; N40.1 Benign prostatic hyperplasia with lower urinary tract symptoms; R33.9 Retention of urine, unspecified
CPT/HCPCS: 36415; 71045; 80048; 80053; 82550; 82962; 83690; 83735; 83880; 84100; 84484; 85025; 87070; 87205; 93005; 94618; 94640; 94660; 94760; 94762; 96374; 96375; 97116; 97162; 97165; 97530; 97535; 99283; 99285; J1100; J1650; J1940; J2270; J2543; J7613